=== PATIENT | male | born 1955 | race Caucasian/White ===

== ENCOUNTER 2024-04-13 20:51 | Emergency (ER) | payer MEDICARE, SELFPAY ==
[2024-04-13 21:07] VITALS: BP 150/73; PULSE 83; RESP 15; TEMP 36.7; O2SAT 96; BMI 25.6
--- NOTE | 2024-04-13 21:52 | XRR_ITS ---
PROCEDURE INFORMATION: Exam: XR Left Hand Exam date and time: 04/13/2024 9:56 PM Age: 69 years old Clinical indication: Injury or trauma; Left; Patient HX: Puncture wound from drill bit to area between base of 1st/2nd finger of lt hand TECHNIQUE: Imaging protocol: Radiologic exam of the left hand. Views: 3 or more views. COMPARISON: No relevant prior studies available. FINDINGS: Bones/joints: No acute fracture or dislocation. Polyarticular degenerative joint disease, severe at the 2nd and 3rd distal interphalangeal joints, 1st carpometacarpal joint and radiocarpal joint. Ulnar negative variance. Soft tissues: No radiopaque foreign body. XR/XR hand LT min 3V* [id number] IMPRESSION: No acute bony findings.
[2024-04-13] MEDS: tetanus-dipt-pertussis 0.5 mL SDV IM (22:26)
--- NOTE | 2024-04-13 22:28 | W.ED.EXTPRO ---
HPI - Extremity Problem General: Chief complaint: Extremity Injury, Upper Stated complaint: drill bit went into hand Time Seen by Provider: 04/13/24 21:48 History of Present Illness: 69-year-old right-handed male that presents to the emergency department with a puncture wound to the left forearm. 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 He was drilling when the drill plunged through his object and into his hand. The wound was just proximal to the MCP joint of the index finger. Does not appear that he has washed his hands little including the injury. The event occurred at 1700. No active bleeding here Unknown tetanus Related Data Previous Rx's Medication Instructions Recorded cephalexin 500 mg capsule 500 mg PO Q6H 5 days #20 caps 04/13/24 Allergies Allergy/AdvReac Type Severity Reaction Status Date / Time No Known Allergies Allergy Verified 04/13/24 21:15 Review of Systems General: Reports: 10 or more systems reviewed and unremarkable except in HPI and below Physical Exam Narrative: EXAM NARRATIVE: No acute distress Alert and oriented x 3 Afebrile vital signs stable Nonlabored breathing Well-perfused Nondistended abdomen Moving all extremities Patient is able to give a thumbs up, make an okay sign, cross fingers abduct fingers and make Sensations intact to light touch at radial, median, ulnar nerve distribution Course Vital Signs: Vital signs: Vital Signs Temperature 98.0 F 04/13/24 21:07 Pulse Rate 83 04/13/24 21:07 Respiratory Rate 15 04/13/24 21:07 Blood Pressure 150/73 04/13/24 21:07 Pulse Oximetry 96 04/13/24 21:07 Oxygen Delivery Me thod Room Air 04/13/24 21:07 MDM - Extremity (Nontraumatic) Medical Decision Making Patient is a 69-year-old [id number] male that sustained a puncture wound to the left palm. I obtain an XR of the left hand which revealed no fracture or retained foreign bodies. I updated his tetanus and as per nursing to cleanse his wound. Patient's asked about suturing up the puncture wound. Proximately 2 mm and it is a puncture wound. I explained that we would not want to close that up needed sutures there is a strong possibility that this could get infected so we are going to place him on Keflex needs to wash his hands several times a day with soap and water and monitor closely. Lab Data Radiology Impressions Hand X-Ray 04/13/24 21:52 IMPRESSION: No acute bony findings. All radiology interpretation(s) finalized by discharge Discharge Plan Discharge Patient Disposition: Home Clinical Impression: Puncture wound Condition: Stable Prescriptions: New cephalexin 500 mg capsule 500 mg PO Q6H 5 Days Qty: 20 0RF Discharge Orders: Discharge ED (Routine); Ordered 04/13/24 Ordered By: Sahil Groves Referrals: Mane Carmona DO [Primary Care Provider] - Discharge Diet: Advance as tolerated Discharge Activity: Resume usual activity Patient Instructions: Pain Management, Puncture Wound (ED) Activity Restrictions/Additional Instructions: We are going to treat you with broad-spectrum antibiotic. You need to monitor the area closely. You can anticipate redness and swelling tomorrow. This is a natural reaction to trauma like this. However if swelling continues to grow, warmth or drainage develops, you need to be reevaluated. Coding Level of Care Code ED Machine Heel Seat Laster for Ramone Alicea
[2024-04-13] MEDS: cephALEXin 500 mg Capsule PO (23:00)
== END 2024-04-13 23:06 | disposition home or self-care (01) ==
PROVIDERS: Emergency Provider Nurse Practitioner; PCP Family Medicine
DX: S51.832A Puncture wound without foreign body of left forearm, initial encounter (principal); W29.8XXA Contact with other powered hand tools and household machinery, initial encounter
CPT/HCPCS: 73130; 90471; 90715; 99283; A6446

== ENCOUNTER → 2024-05-30 10:00 | Outpatient (BNVA) | payer MEDICARE, SELFPAY | PROVIDERS: PCP Family Medicine; Visit Provider Podiatrist Foot & Ankle Surgery | DX: L60.3 Nail dystrophy (principal); G62.9 Polyneuropathy, unspecified; L84 Corns and callosities; E11.42 Type 2 diabetes mellitus with diabetic polyneuropathy | CPT/HCPCS: 11056; 11721; 99203 ==

== ENCOUNTER 2024-06-02 19:06 | Emergency (ER) | payer MEDICARE, SELFPAY ==
[2024-06-02 19:10] VITALS: BP 157/80; PULSE 96; RESP 18; TEMP 36.8; O2SAT 98; BMI 24.4
[2024-06-02 19:13] VITALS: BP 157/75; PULSE 84; RESP 19; O2SAT 96
[2024-06-02 21:13] VITALS: BP 158/77; PULSE 84; O2SAT 95
--- NOTE | 2024-06-02 21:57 | XRR_ITS ---
PROCEDURE INFORMATION: Exam: XR Right Knee Exam date and time: 06/02/2024 10:17 PM Age: 69 years old Clinical indication: Pain; Knee; Right TECHNIQUE: Imaging protocol: Radiologic exam of the right knee. Views: 3 views. COMPARISON: No relevant prior studies available. FINDINGS: Bones/joints: Severe tricompartmental osteoarthritis with prominent marginal osteophytes and joint space narrowing. No evidence of acute fracture or subluxation. Moderate joint effusion with intra-articular bodies in the lateral recess of the suprapatellar bursa. Screw fragments are noted in the posterior aspect of the medial femoral condyle. There is an approximately 18 mm ossicle in this region. Soft tissues: No gross soft tissue abnormality. XR/XR knee RT 3V* [id number] IMPRESSION: 1. Severe osteoarthritis without evidence of acute fracture or subluxation. 2. Postsurgical changes of the posterior aspect of the medial femoral condyle with fragmented screws. Orthopedic evaluation is recommended. 3. Intra-articular bodies.
[2024-06-02 22:40] LABS: Basophils # 0.1 10^3/uL (0.0-0.1); Basophils % 0.6 %; Eosinophils # 0.1 10^3/uL (0.0-0.8); Eosinophils % 1.5 %; Hematocrit 40.4 % (37-53); Lymphocytes # 2.3 10^3/uL (0.8-4.8); Mean Corpuscular HGB Conc 32.4 g/dL (30-55); Mean Corpuscular Hemoglobin 31.3 pg (27-33); Mean Corpuscular Volume 96.4 fl (82-101); Mean Platelet Volume 10.3 fL (7.4-10.4); Monocytes # 1.2 10^3/uL (0.2-0.9); Monocytes % 13.1 %; Neutrophils # 5.26 10^3/uL (1.8-7.7); Neutrophils % 58.6 %; Nucleated Red Blood Cells % 0 %; Platelet Count 291 10^3/cmm (157-399); Red Blood Count 4.19 10^6/uL (3.85-5.65); Red Cell Distribution Width 12.1 % (12.1-15.1); White Blood Count 8.96 10^3/uL (3.29-11.43)
--- NOTE | 2024-06-02 22:50 | ED_ITS ---
HPI - Extremity Problem 2 General: Chief complaint: Extremity Problem,Nontraumatic Stated complaint: Rt Knee Pain Time Seen by Provider: 06/02/24 19:31 History of Present Illness: This patient is a 69-year-old white male who presents to the emergency department with right knee pain and swelling. Patient states he was out moving some firewood earlier today and developed sudden onset of right knee pain and swelling. Patient states this is an old arm injury. He had surgery on this knee many years ago. Related Data Previous Rx's Medication Instructions Recorded Diabetic Shoes #1 ea 05/30/24 hydrocodone 5 mg-acetaminophen 325 1 tab PO Q4H PRN pain #30 tabs 06/02/24 mg tablet Allergies Allergy/AdvReac Type Severity Reaction Status Date / Time No Known Allergies Allergy Verified 06/02/24 19:13 Review of Systems 2 Musc: Reports: other (Right knee pain and swelling) PFSH ED 2 PFSH: Social History Smoking and tobacco/nicotine status: current some day tobacco/nicotine user Physical Exam 2 Const: COMMON NORMALS: patient oriented x3 and no limitations GENERAL APPEARANCE: cooperative HENMT: COMMON NORMALS: normocephalic, atraumatic, Normal nasal mucous membranes and turbinates present, moist oral mucous membranes and oropharynx normal HEAD & SCALP: normal to inspection, normocephalic and atraumatic F LLYOD & SINUS: normal facial exam NOSE: Normal nasal mucous membranes and turbinates present Eye: COMMON NORMALS: Equal, round and reactive pupils present, EOMs intact bilaterally and conjunctivae normal GENERAL EYE: appearance normal, both eyes and all related structures CONJUNCTIVA: Yes conjunctivae normal PUPIL: Yes Equal, round and reactive pupils present Neck/C-Spine: COMMON NORMALS: supple and no JVD Chest: COMMONS NORMALS: normal inspection of the chest Resp: COMMON NORMALS: normal respiratory effort and clear to auscultation bilaterally AUSCULTATION: clear to auscultation bilaterally Cardio: COMMON NORMALS: no JVD, regular rate, regular rhythm, No gallops present (Cardio), No murmurs present (Cardio) and No rub (Cardio) RATE: r egular rate RHYTHM: regular rhythm GI: COMMON NORMALS: Normal to inspection, nondistended, normoactive bowel sounds present, Soft to palpation and non-tender AUSCULTATION: Yes normoactive bowel sounds PALPATION: Yes Soft to palpation : COMMON NORMALS: Yes no CVA tenderness BLADDER/KIDNEY EXAM: Yes no CVA tenderness Back/Pelvis: COMMON NORMALS: no CVA tenderness and thoracic and lumbar spine normal to inspection Extremity: NARRATIVE EXTREMITY EXAM: Diffuse swelling about the right knee. It was warm but not erythematous. Very painful with minimal range of motion. Neuro: COMMON NORMALS: patient oriented x3 and CN's II-XII intact bilaterally Psych: COMMON NORMALS: mental status grossly normal, Normal thought process present and cooperative THOUGHT PROCESS: Normal thought process present Skin: COMMON NORMALS: no rashes or lesions noted, turgor normal and no jaundice GENERAL SKIN EXAM: no rashes or lesions noted and turgor normal Course 2 Vital Signs: Vital signs: Vital Signs Temperature 98.3 F 06/02/24 19:10 Pulse Rate 84 06/02/24 19:13 Respiratory Rate 19 H 06/02/24 19:13 Blood Pressure 157/75 06/02/24 19:13 Pulse Oximetry 96 06/02/24 19:13 Oxygen Delivery Me thod Room Air 06/02/24 19:13 MDM - Extremity (Nontraumatic) Medical Decision Making X-rays of the right knee reveal degenerative changes and surgical clips. CBC was normal. Patient was given morphine, Toradol and Zofran in the emergency department. We did Lloyd wrap the knee. Placed him under hydrocodone. He was discharged in stable condition instructed to follow-up with one of the orthopedist soon as possible for further evaluation and management. Lab Data 06/02/24 22:21 06/02/24 22:21 Laboratory Results WBC 8.96 10^3/uL (3.29-11.43) 06/02/24 22:21 RBC 4.19 10^6/uL (3.85-5.65) 06/02/24 22:21 Hgb 13.10 g/dL (11.27-16.99) 06/02/24 22:21 Hct 40.4 % (37-53) 06/02/24 22:21 MCV 96.4 fl (82-101) 06/02/24 22:21 MCH 31.3 pg (27-33) 06/02/24 22: MCHC 32.4 g/dL (30-55) 06/02/24 22:21 RDW 12.1 % (12.1-15.1) 06/02/24 22:21 Plt Count 291 10^3/cmm (157-399) 06/02/24 22:21 MPV 10.3 fL (7.4-10.4) 06/02/24 22:21 Neut % (Auto) 58.6 % 06/02/24 22:21 Lymph % (Auto) 26.0 % 06/02/24 22:21 [place] % (Auto) 13.1 % 06/02/24 22:21 Eos % (Auto) 1.5 % 06/02/24 22:21 Baso % (Auto) 0.6 % 06/02/24 22:21 Neut # (Auto) 5.26 10^3/uL (1.8-7.7) 06/02/24 22:21 Lymph # (Auto) 2.3 10^3/uL (0.8-4.8) 06/02/24 22:21 [place] # (Auto) 1.2 10^3/uL (0.2-0.9) H 06/02/24 22:21 Eos # (Auto) 0.1 10^3/uL (0.0-0.8) 06/02/24 22:21 Baso # (Auto) 0.1 10^3/uL (0.0-0.1) 06/02/24 22:21 Nucleated RBC % (auto) 0 % 06/02/24 22:21 Nucleated RBCs # 0.0 /100WBC 06/02/24 22:21 XR interpretation done by ED provider, pending radiology final review Discharge Plan Discharge Patient Disposition: Home Clinical Impression: Effusion, right knee Condition: Stable Prescriptions: New hydrocodone-acetaminophen 5-325 mg tablet 1 tab PO Q4H PRN (Reason: pain) Qty: 30 0RF No Action (DME) Diabetic Shoes See Rx Instructions .Route .MEDSUPPLY Qty: 1 0RF Rx Instructions: As directed Home 3 x insoles Discharge Orders: Discharge ED (Routine); Ordered 06/02/24 Ordered By: Raghav Carmona Referrals: Mane Carmona DO [Primary Care Provider] - Patient Instructions: Opioid Safety, Pain Management Activity Restrictions/Additional Instructions: Schedule an appointment with one of the orthopedists soon as possible. Coding Level of Care Code ED Lead Ruby On Rails Developer for Ramone Alicea
[2024-06-02 22:51] LABS: Blood Urea Nitrogen 14 mg/dL (8-23); Calcium 9.2 mg/dL (8.5-10.5); Carbon Dioxide 23 mmol/L (22-29); Chloride 98 mmol/L (98-107); Creatinine Clr Calc Pharmacy 97.6482; Glomerular Filtration Rate 133.6 mL/min (90-130); Glucose 159 mg/dL (65-115); Osmolality Calculated 282 mOsm/kg (285-295); Sodium 134 mmol/L (136-145)
[2024-06-02] MEDS: morphine 4 mg/mL SDV 1 mL IVP (22:53)
[2024-06-02] MEDS: ketorolac 30 mg/mL INJ 15 MG IVP (22:53)
[2024-06-02 23:00] VITALS: BP 144/69; PULSE 85; O2SAT 98
[2024-06-02 23:05] LABS: Anion Gap 16.9 (5-19); Potassium 3.9 mmol/L (3.5-5.1)
[2024-06-02 23:14] VITALS: BP 144/69; PULSE 89; O2SAT 97
== END 2024-06-02 23:16 | disposition home or self-care (01) ==
PROVIDERS: Emergency Provider Emergency Medicine; PCP Family Medicine
DX: M25.461 Effusion, right knee (principal); Z72.0 Tobacco use
CPT/HCPCS: 36415; 73562; 80048; 84550; 85025; 96374; 96375; 99284; J1885; J2270

== ENCOUNTER → 2024-06-13 13:58 | Outpatient (BNVA) | payer MEDICARE, SELFPAY | PROVIDERS: PCP Family Medicine; Visit Provider Student in an Organized Health Care Education/Training Program | DX: M23.41 Loose body in knee, right knee (principal) | CPT/HCPCS: 99203 ==

== ENCOUNTER 2024-07-02 10:22 | Inpatient (IN) | payer MEDICARE, SELFPAY ==
[2024-07-02] VITALS (20 sets, daily range): BP systolic 107–137; BP diastolic 56–70; PULSE 60–100; RESP 14–26; TEMP 36.6–36.8; O2SAT 90–98; BMI 22.4
--- NOTE | 2024-07-02 10:29 | ECG_ITS ---
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 Measurements Intervals [place] Rate: 96 P: 30 [place]: 186 QRS: -38 QRSD: 123 T: 83 QT: 370 QTc: 470 Interpretive Statements SINUS RHYTHM LEFT AXIS DEVIATION [QRS AXIS < -30] MODERATE INTRAVENTRICULAR CONDUCTION DELAY [110+ ms QRS DURATION] ST DEVIATION AND MODERATE T-WAVE ABNORMALITY, CONSIDER INFERIOR ISCHEMIA [-0.1+ mV T-WAVE IN II/aVF] No previous ECG available for comparison Electronically Signed On 07-04-2024 17:54:44 COAL AND ASH SUPERVISOR by Bo Arroyo M.D. [email or web address]
--- NOTE | 2024-07-02 10:35 | XR_ITS ---
WS: [id number] Exam: XR knee RT 3V* [id number] Date/Time of Exam: 07/02/2024 10:44 AM Reason For Exam: pain Comparison 06/02/2024. No acute fracture. End-stage osteoarthritis of the medial and lateral joint compartments with anlc-uu-qccs articulation. Fractured staple within the medial femoral condyle. No joint effusion. Chondrocalcinosis and probable loose joint bodies. XR/XR knee RT 3V* [id number] IMPRESSION: 1. End-stage osteoarthritis with iybs-kv-dlqu articulation. See above. 2. No fracture.
--- NOTE | 2024-07-02 10:40 | XR_ITS ---
WS: [id number] Exam: XR chest 1V portable [id number] Date/Time of Exam: 07/02/2024 10:44 AM Reason For Exam: dyspnea/cough No priors. Diffuse interstitial infiltrate in the RIGHT lung. 2 cm ill-defined soft tissue density in the RIGHT upper lung zone. Surgical clips superimpose the RIGHT upper lobe. The LEFT lung is clear. No pneumothorax or pleural effusion. Normal cardiomediastinal silhouette. Fusion hardware in the lower C-spine. Recommendations: Contrast chest CT recommended for follow-up if clinically warranted. XR/XR chest 1V portable [id number] IMPRESSION: 1. Diffuse interstitial infiltrate in the RIGHT lung. This could represent inte rstitial pneumonia or chronic change. 2. Ill-defined 2 cm soft tissue density in the RIGHT upper lung zone. A mass or focal infiltrate cannot be excluded. 3. Postoperative changes in the RIGHT upper lobe.
--- NOTE | 2024-07-02 10:41 | W.ED.SOB ---
HPI - SOB/Dyspnea General: Chief Complaint: Shortness of Breath/Dyspnea Stated Complaint: SOB Time Seen by Provider: 07/02/24 10:33 History of Present Illness: HPI Narrative: 69-year-old male presents emergency room complaining of shortness of breath. He is brought in by EMS they report he was 88% on room air with a first encountered the patient. He was treated with DuoNebs and Solu-Medrol and route this increased oxygen sat to 96% when I seen the patient is at 94%. Is difficult to understand him he mumbles quite a bit and he seems somewhat lethargic. He states he fell and he hurt his right knee. He denies chest or abdominal pain. Denies striking his head no loss consciousness no neck pain Associated symptoms: Deny abdominal pain, chest pain or fever(s) Related Data Home Medications ?Medication ?Instructions ?Recorded ?Confirmed buprenorphine 10 mcg/hour weekly 10 mcg topical Q7D 07/02/24 07/02/24 transdermal patch buprenorphine 5 mcg/hour weekly 5 mcg topical Q7D 07/02/24 07/02/24 transdermal patch glipizide 5 mg tablet 5 mg PO BID 07/02/24 07/02/24 losartan 100 mg tablet 100 mg PO DAILY 07/02/24 07/02/24 meloxicam 15 mg tablet 15 mg PO DAILY 07/02/24 07/02/24 metformin 500 mg tablet,extended 2,000 mg PO QAM 07/02/24 07/02/24 release 24 hr Previous Rx's ?Medication ?Instructions ?Recorded Diabetic Shoes #1 ea 05/30/24 Allergies Allergy/AdvReac Type Severity Reaction Status Date / Time No Known Allergies Allergy Verified 06/13/24 14:15 Review of Systems Const: Denies: fever(s) or chills Card: Denies: chest pain Resp: Reports: dyspnea GI: Denies: abdominal pain : Denies: dysuria, urinary frequency or urinary urgency Musc: Denies: neck pain or back pain Skin/Breast: Denies: rash PFSH ED PFSH: Medical History Peripheral neuropathy Loose body in knee Type 2 diabetes mellitus Hardware failure Social History Smoking and tobacco/nicotine status: current some day tobacco/nicotine user Physical Exam Const: GENERAL APPEARANCE: cooperative ORIENTATION/CONSCIOUSNESS: Yes awake HENMT: COMMON NORMALS: normocephalic, atraumatic and hearing grossly normal bilaterally HEAD & SCALP: normocephalic and atraumatic Resp: AUSCULTATION: wheezes Cardio: COMMON NORMALS: regular rate, regular rhythm and No murmurs present (Cardio) RATE: regular rate RHYTHM: regular rhythm GI: COMMON NORMALS: Soft to palpation and No hepatosplenomegaly present AUSCULTATION: Yes normoactive bowel sounds PALPATION: Yes Soft to palpation, No Tenderness to palpation present (GI), No Guarding due to palpation present (GI) and Yes No hepatosplenomegaly present Extremity: COMMON NORMALS: normal to inspection, capillary refill normal, no clubbing, cyanosis or edema, no calf tenderness and no pedal edema Skin: COMMON NORMALS: no rashes or lesions noted GENERAL SKIN EXAM: no rashes or lesions noted Course Vital Signs: Vital signs: Vital Signs Temperature 97.8 F 07/03/24 03:36 Pulse Rate 64 07/03/24 03:36 Respiratory Rate 17 07/03/24 03:36 Blood Pressure 149/72 07/03/24 03:36 Pulse Oximetry 97 07/03/24 03:36 Oxygen Delivery Me thod Room Air 07/03/24 03:36 Oxygen Flow Rate 2 07/02/24 23:55 MDM - SOB/Dyspnea Medical Decision Making Chest x-ray right lower lobe pneumonia CT confirms there is no PE. Patient is hypoxic. Will admit IV antibiotics initiated discussed with hospitalist orders written Medical Records I reviewed the patient's medical records. Lab Data I reviewed the patient's lab results. 07/03/24 04:20 07/03/24 04:20 Labs/Radiology: Radiology Impressions Knee X-Ray 07/02/24 10:35 IMPRESSION: 1. End-stage osteoarthritis with tdvy-rt-dpfn articulation. See above. 2. No fracture. Chest X-Ray 07/02/24 10:40 IMPRESSION: 1. Diffuse interstitial infiltrate in the RIGHT lung. This could represent interstitial pneumonia or chronic change. 2. Ill-defined 2 cm soft tissue density in the RIGHT upper lung zone. A mass or focal infiltrate cannot be excluded. 3. Postoperative changes in the RIGHT upper lobe. Chest CTA 07/02/24 16:51 IMPRESSION: 1. Right lower lobe pneumonia with mild patchy infiltrates in the anterior right upper lobe and right middle lobe. Follow-up is recommended to ensure resolution. 2. Small right pleural effusion. 3. Mild coronary arterial calcification. 4. No pulmonary embolism detected. Head CT 07/02/24 16:51 IMPRESSION: 1. Age-related atrophy with patchy hypoattenuation in the deep white matter as well as within the bilateral basal ganglia, central linda, and thalami. These findings could all be related to chronic small-vessel ischemic change and old lacunar type infarcts. However, an acute infarct is difficult to exclude on this exam. If clinically indicated, MRI may be helpful for further evaluation. 2. No acute intracranial hemorrhage seen. Laboratory Results WBC 12.46 10^3/uL (3.29-11.43) H 07/02/24 11:02 RBC 3.74 10^6/uL (3.85-5.65) L 07/02/24 11:02 Hgb 11.30 g/dL (11.27-16.99) 07/02/24 11:02 Hct 34.2 % (37-53) L 07/02/24 11:02 MCV 91.4 fl (82-101) 07/02/24 11:02 MCH 30.2 pg (27-33) 07/02/24 11:02 MCHC 33.0 g/dL (30-55) 07/02/24 11:02 RDW 11.9 % (12.1-15.1) L 07/02/24 11:02 Plt Count 365 10^3/cmm (157-399) 07/02/24 11:02 MPV 10.1 fL (7.4-10.4) 07/02/24 11:02 Neut % (Auto) 78.3 % 07/02/24 11:02 Lymph % (Auto) 12.4 % 07/02/24 11:02 [place] % (Auto) 8.2 % 07/02/24 11:02 Eos % (Auto) 0.3 % 07/02/24 11:02 Baso % (Auto) 0.2 % 07/02/24 11:02 Neut # (Auto) 9.75 10^3/uL (1.8-7.7) H 07/02/24 11:02 Lymph # (Auto) 1.6 10^3/uL (0.8-4.8) 07/02/24 11:02 [place] # (Auto) 1.0 10^3/uL (0.2-0.9) H 07/02/24 11:02 Eos # (Auto) 0.0 10^3/uL (0.0-0.8) 07/02/24 11:02 Baso # (Auto) 0.0 10^3/uL (0.0-0.1) 07/02/24 11:02 Nucleated RBC % (auto) 0 % 07/02/24 11:02 Nucleated RBCs # 0.0 /100WBC 07/02/24 11:02 Specimen Type Arterial 07/02/24 10:37 Sample Site Radial, left 07/02/24 10:37 ABG pH 7.43 (7.35-7.45) 07/02/24 10:37 ABG pCO2 39.4 mmHg (35-45) 07/02/24 10:37 ABG pO2 59.4 mmHg (80.0-100.0) L 07/02/24 10:37 ABG PO2/FiO2 Ratio 282 07/02/24 10:37 ABG HCO3 26.1 mmol/L (22-26) H 07/02/24 10:37 ABG O2 Saturation 91.2 07/02/24 10:37 ABG Base Excess 1.7 mmol/L (-2.0-2.0) 07/02/24 10:37 Geoffrey Test Pos 07/02/24 10:37 A-a O2 Gradient 5.6 mmHg (5-10) 07/02/24 10:37 Hematocrit 35.6 % (42-52) L 07/02/24 10:37 Hgb O2 Saturation 89.1 % (95-100) L 07/02/24 10:37 Carboxyhemoglobin 1.2 %THgb (0.4-20.1) 07/02/24 10:37 Methemoglobin 1.1 % (0.4-1.5) 07/02/24 10:37 Total Hemoglobin 11.6 g/dL (14-18) L 07/02/24 10:37 Sodium 136.0 mmol/L (131-143) 07/02/24 10:37 Potassium 3.1 mmol/L (3.5-5.0) L 07/02/24 10:37 Glucose 271.0 mg/dL (70-115) H 07/02/24 10:37 Ionized Calcium 1.2 mmol/L (1.1-1.4) 07/02/24 10:37 O2 Delivery Device Room air 07/02/24 10:37 FiO2 21.0 % 07/02/24 10:37 Grab Operator ID [place] 07/02/24 10:37 Sodium 134 mmol/L (136-145) L 07/02/24 11:02 Potassium 3.5 mmol/L (3.5-5.1) 07/02/24 11:02 Chloride 98 mmol/L (98-107) 07/02/24 11:02 Carbon Dioxide 22 mmol/L (22-29) 07/02/24 11:02 Anion Gap 17.5 (5-19) 07/02/24 11:02 BUN 11 mg/dL (8-23) 07/02/24 11:02 Creatinine 0.8 mg/dL (0.7-1.2) 07/02/24 11:02 GFR Calculation 95.8 mL/min (90-130) 07/02/24 11:02 Glucose 281 mg/dL (65-115) H 07/02/24 11:02 Calculated Osmolality 288 mOsm/kg (285-295) 07/02/24 11:02 Lactic Acid 1.7 mmol/L (0.5-2.2) 07/02/24 11:02 Calcium 8.5 mg/dL (8.5-10.5) 07/02/24 11:02 Total Bilirubin 1.0 mg/dL (0.15-1.2) 07/02/24 11:02 AST 28 U/L (0-40) 07/02/24 11:02 ALT 33 U/L (0-41) 07/02/24 11:02 Alkaline Phosphatase 98 U/L (40-130) 07/02/24 11:02 Troponin T Baseline 43 ng/L (0-15) H 07/02/24 11:02 Troponin T 120 Minute 37.12 ng/L (0-15) H 07/02/24 13:15 Delta Troponin T -5.88 ABS# (0-10) L 07/02/24 13:15 Total Protein 5.6 g/dL (6.6-8.7) L 07/02/24 11:02 Albumin 3.1 g/dL (3.5-5.2) L 07/02/24 11:02 Globulin 2.5 g/dL (1.3-4.6) 07/02/24 11:02 Salicylates < 0.3 mg/dL (3-10) L 07/02/24 11:02 Acetaminophen < 5.0 ug/mL (10-30) L 07/02/24 11:02 Ethyl Alcohol < 10 mg/dL (0-10) 07/02/24 11:02 Influenza A (PCR) Negative (Negative) 07/02/24 13:01 Influenza Type B (PCR) Negative (Negative) 07/02/24 13:01 RSV (PCR) Negative (Negative) 07/02/24 13:01 SARS-CoV-2 (PCR) Negative (Negative) 07/02/24 13:01 All radiology interpretation(s) finalized by discharge Discharge Plan Discharge Patient Disposition: Admitted As Inpatient Admit Provider: Pat Morales Clinical Impression: Pneumonia, COPD (chronic obstructive pulmonary disease), Type 2 diabetes mellitus Condition: Stable Coding Level of Care Code ED Slitting Machine Operator Helper for Ramone Alicea
[2024-07-02 10:48] LABS: ABG PCO2 39.4 mmHg (35-45); ABG PH Result 7.43 (7.35-7.45); Alveolar-Arterial Oxygen Gradi 5.6 mmHg (5-10); Arterial Blood Gas Hematocrit 35.6 % (42-52); Base Excess ABG 1.7 mmol/L (-2.0-2.0); Blood Gas Allen Test Pos; Blood Gas Operator Identificat WALCI; Blood Gas Sample Site Radial, left; Blood Gas Sample Type Arterial; Carboxyhemoglobin 1.2 %THgb (0.4-20.1); HCO3 ABG 26.1 mmol/L (22-26); HGB O2 Sat 89.1 % (95-100); Ionized Calcium Level - ABG 1.2 mmol/L (1.1-1.4); Methemoglobin 1.1 % (0.4-1.5); Oxygen Device ROOM AIR; Oxygen Saturation ABG 91.2; PO2 ABG 59.4 mmHg (80.0-100.0); PO2 FiO2 Ratio Arterial Blood 282; Potassium Level - ABG 3.1 mmol/L (3.5-5.0); Total Hemoglobin 11.6 g/dL (14-18)
[2024-07-02 11:09] LABS: Basophils % 0.2 %; Eosinophils % 0.3 %; Hematocrit 34.2 % (37-53); Lymphocytes # 1.6 10^3/uL (0.8-4.8); Lymphocytes % 12.4 %; Mean Corpuscular Hemoglobin 30.2 pg (27-33); Mean Corpuscular Volume 91.4 fl (82-101); Mean Platelet Volume 10.1 fL (7.4-10.4); Monocytes % 8.2 %; Neutrophils # 9.75 10^3/uL (1.8-7.7); Neutrophils % 78.3 %; Nucleated Red Blood Cells % 0 %; Platelet Count 365 10^3/cmm (157-399); Red Blood Count 3.74 10^6/uL (3.85-5.65); Red Cell Distribution Width 11.9 % (12.1-15.1); White Blood Count 12.46 10^3/uL (3.29-11.43)
[2024-07-02 11:27] LABS: Troponin(5th) Baseline 43 ng/L (0-15)
[2024-07-02 11:35] LABS: Alanine Aminotransferase 33 U/L (0-41); Albumin Level 3.1 g/dL (3.5-5.2); Alkaline Phosphatase 98 U/L (40-130); Anion Gap 17.5 (5-19); Aspartate Amino Transferase 28 U/L (0-40); Blood Urea Nitrogen 11 mg/dL (8-23); Calcium 8.5 mg/dL (8.5-10.5); Carbon Dioxide 22 mmol/L (22-29); Chloride 98 mmol/L (98-107); Creatinine Clr Calc Pharmacy 97.1127; Globulin 2.5 g/dL (1.3-4.6); Glomerular Filtration Rate 95.8 mL/min (90-130); Glucose 281 mg/dL (65-115); Osmolality Calculated 288 mOsm/kg (285-295); Potassium 3.5 mmol/L (3.5-5.1); Sodium 134 mmol/L (136-145); Total Protein 5.6 g/dL (6.6-8.7)
[2024-07-02 11:39] LABS: Acetaminophen < 5.0 ug/mL (10-30); Alcohol Level < 10 mg/dL (0-10); Salicylate < 0.3 mg/dL (3-10)
--- NOTE | 2024-07-02 12:40 | ECG_ITS ---
[facility] Date: 2024[facility]02 Pat Name: Rad Romero Department: Room: Gender: Male Regional Safety Manager: : 1955 Requested By: Dharmesh Figueroa Order Number: [id number] Reading MD: MARY MARRERO Measurements Intervals [place] Rate: 77 P: 64 MD: 165 QRS: -20 QRSD: 123 T: 69 QT: 389 QTc: 441 Interpretive Statements SINUS RHYTHM MODERATE INTRAVENTRICULAR CONDUCTION DELAY [110+ ms QRS DURATION] Compared to ECG 07/02/2024 10:29:08 Left-axis deviation no longer present T-wave abnormality no longer present Possible ischemia no longer present Electronically Signed On 07-09-2024 23:56:19 HOT PLATE PRESS OPERATOR by MARY MARRERO [email or web address]
[2024-07-02] MEDS: ipratropium-albuterol 3 mL Neb INHALATION (12:42)
[2024-07-02] MEDS: methylPREDNISolone sod succ 125 mg/2 mL INJ IVP (12:53)
[2024-07-02 13:24] LABS: Lactic Sepsis W/Reflex 1.7 mmol/L (0.5-2.2)
[2024-07-02] MEDS: cefTRIAXone 1,000 mg SDV 1000 MG IVP (13:57)
[2024-07-02 13:58] LABS: Troponin 5 2HR 37.12 ng/L (0-15)
[2024-07-02] MEDS: AZITHROMYCIN ADD-Vantage 500 MG in 0.9% NaCl ADD-Vantage 250 ML 250 MG IV (13:58)
[2024-07-02 14:02] LABS: Troponin 5 2HR Delta -5.88 ABS# (0-10)
[2024-07-02 14:24] LABS: Influenza A NEGATIVE (Negative); Influenza B NEGATIVE (Negative); Respiratory Syncytial Virus Ce NEGATIVE (Negative); SARS-CoV-2 PCR NEGATIVE (Negative)
--- NOTE | 2024-07-02 16:40 | ECG_ITS ---
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
--- NOTE | 2024-07-02 16:51 | CTR_ITS ---
PROCEDURE INFORMATION: Exam: CT Head Without Contrast Exam date and time: 07/02/2024 5:46 PM Age: 69 years old Clinical indication: Injury or trauma; Fall; Blunt trauma (contusions or hematomas); Consciousness not specified; Additional info: Fall, ground level fall TECHNIQUE: Imaging protocol: Computed tomography of the head without contrast. Radiation optimization: All CT scans at this facility use at least one of these dose optimization techniques: automated exposure control; mA and/or kV adjustment per patient size (includes targeted exams where dose is matched to clinical indication); or iterative reconstruction. COMPARISON: No relevant prior studies available. RADIATION DOSE METRICS: Total DLP (mGy-cm): 1061.6 FINDINGS: Brain: There is enlargement of the ventricular system and cortical sulci compatible with diffuse cerebral atrophy, age-related.There is patchy hypoattenuation in the deep white matter, most pronounced in the parietal lobes bilaterally and posterior right frontal lobe. There is a 9 mm focus of hypoattenuation within the left anterior thalamus with patchy hypoattenuation in the right thalamus, bilateral basal ganglia, and central linda. These findings could all be chronic, however a focus of acute ischemia is difficult to exclude on this exam. No acute intracranial hemorrhage is seen. Cerebral ventricles: Mildly enlarged related to atrophy. No hydrocephalus. Paranasal sinuses: Visualized sinuses are clear. No air fluid levels. Mastoid air cells: Visualized mastoid air cells are well aerated. Bones: Intact. No acute fracture detected. Soft tissues: Unremarkable. CT/CT head wo con* [id number] IMPRESSION: 1. Age-related atrophy with patchy hypoattenuation in the deep white matter as well as within the bilateral basal ganglia, central linda, and thalami. These findings could all be related to chronic small-vessel ischemic change and old lacunar type infarcts. However, an acute infarct is difficult to exclude on this exam. If clinically indicated, MRI may be helpful for further evaluation. 2. No acute intracranial hemorrhage seen.
--- NOTE | 2024-07-02 16:51 | CTR_ITS ---
PROCEDURE INFORMATION: Exam: CTA Chest With Contrast Exam date and time: 07/02/2024 5:46 PM Age: 69 years old Clinical indication: Injury or trauma; Fall; Blunt trauma (contusions or hematomas); Additional info: Fall, lung mass on cxr, noted rul mass on cxr, ? mass vs pneumonia. Ground level TECHNIQUE: Imaging protocol: Computed tomographic angiography of the chest with contrast. Exam focused on the arteries. 3D rendering (Not supervised by radiologist): MIP and/or 3D reconstructed images were created by the technologist. Radiation optimization: All CT scans at this facility use at least one of these dose optimization techniques: automated exposure control; mA and/or kV adjustment per patient size (includes targeted exams where dose is matched to clinical indication); or iterative reconstruction. Contrast material: OMNIPAQUE 350; Contrast volume: 100 ml; Contrast route: INTRAVENOUS (IV); COMPARISON: CR XR chest 1V portable [id number] 07/02/2024 10:45 AM RADIATION DOSE METRICS: Total DLP (mGy-cm): 1061.6 FINDINGS: Pulmonary arteries: No intraluminal soft tissue filling defects are seen within the pulmonary arteries to suggest pulmonary embolism. Aorta: Unremarkable. No aortic aneurysm. No aortic dissection. Lungs: There is focal airspace disease within the posterior right lower lobe compatible with pneumonia. There is also patchy infiltrate in the anterior right upper lobe and right middle lobe. The left lung appears clear. Pleural spaces: There is a small right pleural effusion. Heart: Unremarkable. No cardiomegaly. No pericardial effusion. Coronary arteries: Mild coronary arterial calcification is noted. Lymph nodes: Unremarkable. No enlarged lymph nodes. Bones/joints: There are degenerative changes involving the thoracic spine. A surgical plate is seen in the visualized lower cervical spine. Soft tissues: Unremarkable. CT/CT angio chest PE protcl [id number] IMPRESSION: 1. Right lower lobe pneumonia with mild patchy infiltrates in the anterior right upper lobe and right middle lobe. Follow-up is recommended to ensure resolution. 2. Small right pleural effusion. 3. Mild coronary arterial calcification. 4. No pulmonary embolism detected.
[2024-07-02 17:13] LABS: Bilirubin Urine Negative (Negative); Blood Urine Negative (Negative); Glucose Urine UA 2+ (Normal); Ketones Urine Negative (Negative); Leukocyte Esterase Urine Negative (Negative); Nitrate Urine Negative (Negative); Protein Urine Trace (Negative); Specific Gravity, Urine 1.017 (1.005-1.030); Urine Appearance Clear (CLEAR); Urine Color Yellow (Yellow); pH Urine 5.5 (5-7)
[2024-07-02 17:20] LABS: Amphetamines Screen Urine Positive (Negative); Barbiturates Screen Urine Negative (Negative); Benzodiazepines Screen Urine Negative (Negative); Cocaine Screen Urine Negative (Negative); Opiate Screen Urine Negative (Negative); PCP Screen Urine Negative (Negative); THC Screen Urine Positive (Negative)
[2024-07-02 17:32] LABS: Add Urine Microscopic? YES; UA Manual Slide Review YES; UA Slide Review UA Slide Review Perf
[2024-07-02 17:35] LABS: Add Urine Culture? No
[2024-07-02 17:37] LABS: Troponin 5 6HR 27.06 ng/L (0-15)
[2024-07-02 17:38] LABS: Troponin 5 6HR Delta -15.94 ng/L (0-12)
[2024-07-02] MEDS: iohexol 350 mg/mL 500 mL Btl (per mL) IV (17:53)
--- NOTE | 2024-07-02 17:53 | PM.HP ---
Providers/Chief Complaint Admitting Physician: Pat Morales MD Primary Care Provider: Mane Carmona DO Chief Complaint: SOB History of Present Illness Rad Romero is a 69 year old male with past medical history of chronic smoking, type 2 diabetes mellitus, chronic pain management, chronic right knee pain for which he is following up with orthopedics as an outpatient presents to the ER today after sustaining a fall. Patient states he been having difficulty breathing for a long time but got worse after fall today. He was trying scraped his yard when he fell and started having pain in the right side of the chest along with difficulty in breathing. States last alcohol consumption was last night. Denies any nausea vomiting, headache, dizziness, hitting his head, pain in any of his limbs. In the ER he was diagnosed of COPD exacerbation with concerns for pneumonia and was started on nebulization treatment, steroids and given 1 dose of IV ceftriaxone. Review of Systems General: Reports: 10 or more systems reviewed and unremarkable except in HPI and below Const: Denies: fever(s), chills, body aches, change in appetite, change in weight, malaise, night sweats, diaphoresis, change in sleep pattern, daytime sleepiness or snoring Eyes: Denies: change in vision, blurry vision, photophobia, eye discomfort or eye discharge ENMT: Denies: throat pain, enlarged tonsils, hoarseness, mouth pain, oral sores, dry mouth, tinnitus, nasal congestion or post nasal drip Card: Denies: chest pain, palpitations, irregular heart rhythm, edema, swelling of feet/ankles, lightheadedness, syncope, pre-syncope, dyspnea on exertion, orthopnea, leg pain with exertion or acrocyanosis Resp: Denies: dyspnea, productive cough, non-productive cough, wheezing, stridor, pain on inspiration, change in phlegm color, hemoptysis or chest congestion GI: Denies: abdominal pain, nausea, vomiting, hematemesis, coffee ground emesis, dysphagia, heartburn, diarrhea, constipation, bloating, GI cramping, change in bowel habits, pain on defecation, hematochezia or melena : Denies: flank pain, difficulty urinating, dysuria, urinary frequency, urinary urgency, urinary hesitancy, urinary dribbling, difficulty starting urination, change in urine stream, nocturia or hematuria Musc: Denies: neck pain, back pain, extremity pain, joint pain, joint swelling, joint redness, joint stiffness or limited range of motion Neuro: Denies: headache(s), numbness in extremities, weakness in extremities, sensory changes, lack of coordination, difficulty walking, frequent falls, dizziness, vertigo, confusion, Slurred speech present, difficulty communicating thoughts or seizure-like activity Psych: Denies: anxiety, depression, mood swings, panic attacks, hopelessness or irritability Endo: Denies: polyuria, polydipsia, tired all the time, cold intolerance, excessive sweating, flushing or heat intolerance Lance/Lymph: Denies: easy bruising or easy bleeding All/Imm: Denies: tongue swelling, facial swelling or acute wheezing Medications/Allergies Home Medications ?Medication ?Instructions ?Recorded ?Confirmed ?Last Taken ?Type Diabetic Shoes #1 ea 05/30/24 07/02/24 Unknown Rx buprenorphine 10 mcg/hour weekly 10 mcg topical Q7D 07/02/24 07/02/24 06/30/24 History transdermal patch buprenorphine 5 mcg/hour weekly 5 mcg topical Q7D 07/02/24 07/02/24 Unknown History transdermal patch glipizide 5 mg tablet 5 mg PO BID 07/02/24 07/02/24 07/02/24 History losartan 100 mg tablet 100 mg PO DAILY 07/02/24 07/02/24 07/02/24 History meloxicam 15 mg tablet 15 mg PO DAILY 07/02/24 07/02/24 07/02/24 History metformin 500 mg tablet,extended 2,000 mg PO QAM 07/02/24 07/02/24 07/02/24 History release 24 hr Allergies Allergy/AdvReac Type Severity Reaction Status Date / Time No Known Allergies Allergy Verified 06/13/24 14:15 PFSH Acute PFSH: Medical History (Updated 07/02/24 @ 17:57 by Ovi Corcoarn MD) Peripheral neuropathy Loose body in knee Type 2 diabetes mellitus Hardware failure Social History Smoking and tobacco/nicotine status: current some day tobacco/nicotine user Vitals/I&O/Wt Last Vital Signs Temp 98.3 F 07/02/24 10:26 Pulse 68 07/02/24 17:00 Resp 17 07/02/24 17:00 BP 128/66 07/02/24 17:00 Pulse Ox 98 07/02/24 17:00 O2 Del Method Nasal Cannula 07/02/24 17:00 O2 Flow Rate 2 07/02/24 17:00 07/02/24 07/02/24 07/02/24 06:59 14:59 22:59 Intake Total 250 / 250 Balance 250 / 250 Weight last 48 hrs Weight 77.111 kg Physical Exam Narrative: General: No acute distress, AO x3, drowsy HEENT: PERRLA, pupils bilaterally equal and reactive Chest: Bronchial breath sounds all over lung mitchell, occasional rhonchi, coarse Acra present in right lower zone, tenderness in right fourth and fifth ribs and anterior axillary line CVS: S1-S2 regular, no murmurs, no tachycardia, no gallops, no rubs Abdomen: Soft, nontender, no organomegaly, bowel sounds present Neuro: No focal deficits, no facial deformity, AO x3, power 5/5 in all limbs Data 07/02/24 11:02 07/02/24 11:02 Micro: Microbiology 07/02/24 13:18 Blood Culture - Preliminary Blood SPECIMEN COLLECTED 07/02/24 13:15 Blood Culture - Preliminary Blood SPECIMEN COLLECTED A&P Assessment and plan (1) Dyspnea: Most likely in setting of COPD exacerbation along with right lower lobe pneumonia. Seen on chest x-ray. Influenza A, COVID-19, RSV negative. Oxygen supplementation keeping saturation over 90%. (2) COPD (chronic obstructive pulmonary disease): Solu-Medrol 40 mg every 8 hourly Pulmicort twice daily, ipratropium, Xopenex every 6 hours. Patient is a chronic smoker. Nicotine patch offered. Counseled again about abstaining from smoking. (3) Pneumonia: Check MRSA swab, sputum culture. Treat with IV ceftriaxone azithromycin for community-acquired pneumonia for now. If MRSA swab positive will add coverage. (4) Fall: Mechanical. Check CT head, CTA chest to rule out rib fracture. Will also rule out pulm embolism given new hypoxia. (5) Type 2 diabetes mellitus: Check A1c. Takes glipizide at home. Insulin sliding scale at low-dose protocol. Plan Urine drug screen positive for amphetamines. Occasional alcohol drinker. Last consumption on 07/01. Alcohol level negative currently. [facility] protocol. CODE STATUS: Full code Cardiac diet Protonix OPD prophylaxis Lovenox for DVT prophylaxis PDMP PDMP Reviewed: Not Reviewed Attestations Medical Necessity Statement*: Admit for more than 2 midnights for management of hypoxia in setting of right lower lobe pneumonia, COPD exacerbation while rib fracture is ruled out given mechanical fall Diagnoses Dyspnea R06.00 COPD (chronic obstructive pulmonary disease) J44.9 Pneumonia J18.9 Fall W19.XXXA Type 2 diabetes mellitus E11.9
[2024-07-02 18:09] LABS: Glucose Point of Care 289 mg/dL (70-110)
[2024-07-02] MEDS: enoxaparin 40 mg/0.4 mL Syringe SUBCUT (18:13)
[2024-07-02] MEDS: insulin lispro 100 unit/1 mL SUBCUT ×2 (18:14→23:18)
[2024-07-02 22:02] LABS: Glucose Point of Care 325 mg/dL (70-110)
[2024-07-03] VITALS (8 sets, daily range): BP systolic 113–149; BP diastolic 57–72; PULSE 61–75; RESP 17–19; TEMP 36.4–36.7; O2SAT 94–98
[2024-07-03 00:52] LABS: MRSA PCR OZH (swab) NOT DETECTED (Negative)
[2024-07-03 05:23] LABS: Basophils % 0.1 %; Hematocrit 35.1 % (37-53); Lymphocytes # 0.9 10^3/uL (0.8-4.8); Lymphocytes % 6.9 %; Mean Corpuscular Hemoglobin 30.9 pg (27-33); Mean Corpuscular Volume 93.4 fl (82-101); Mean Platelet Volume 10.7 fL (7.4-10.4); Monocytes # 0.9 10^3/uL (0.2-0.9); Neutrophils # 11.39 10^3/uL (1.8-7.7); Neutrophils % 85.3 %; Nucleated Red Blood Cells % 0 %; Platelet Count 413 10^3/cmm (157-399); Red Blood Count 3.76 10^6/uL (3.85-5.65); Red Cell Distribution Width 11.9 % (12.1-15.1); White Blood Count 13.35 10^3/uL (3.29-11.43)
[2024-07-03 05:45] LABS: Alanine Aminotransferase 29 U/L (0-41); Albumin Level 2.8 g/dL (3.5-5.2); Alkaline Phosphatase 95 U/L (40-130); Anion Gap 17.8 (5-19); Aspartate Amino Transferase 17 U/L (0-40); Blood Urea Nitrogen 21 mg/dL (8-23); Calcium 9.3 mg/dL (8.5-10.5); Carbon Dioxide 24 mmol/L (22-29); Chloride 99 mmol/L (98-107); Creatinine Clr Calc Pharmacy 99.5282; Globulin 3.7 g/dL (1.3-4.6); Glomerular Filtration Rate 95.8 mL/min (90-130); Glucose 331 mg/dL (65-115); Osmolality Calculated 300 mOsm/kg (285-295); Potassium 3.8 mmol/L (3.5-5.1); Sodium 137 mmol/L (136-145); Total Bilirubin 0.4 mg/dL (0.15-1.2); Total Protein 6.5 g/dL (6.6-8.7)
[2024-07-03 06:27] LABS: Glucose Point of Care 389 mg/dL (70-110)
[2024-07-03] MEDS: ipratropium-albuterol 3 mL Neb INHALATION (07:40)
[2024-07-03] MEDS: cefTRIAXone 1,000 mg SDV 1000 MG IVP (08:54)
[2024-07-03] MEDS: azithromycin 250 mg Tablet 500 MG PO (08:54)
[2024-07-03] MEDS: pantoprazole DR 40 mg Tablet PO (08:55)
[2024-07-03] MEDS: insulin lispro 100 unit/1 mL SUBCUT ×4 (08:55→20:57)
[2024-07-03 10:58] LABS: Glucose Point of Care 328 mg/dL (70-110)
--- NOTE | 2024-07-03 15:38 | PM.PN ---
Subjective Subjective: Complaining of bouts of coughing. Pain over the right second intercostal space. Medications: Reviewed: Yes Vitals/I&O/Wt Last Vital Signs Temp 97.5 F L 07/03/24 12:06 Pulse 70 07/03/24 12:06 Resp 18 07/03/24 12:06 BP 113/61 07/03/24 12:06 Pulse Ox 94 07/03/24 12:06 O2 Del Method Nasal Cannula 07/03/24 12:06 O2 Flow Rate 2 07/03/24 08:00 07/03/24 07/03/24 07/03/24 06:59 14:59 22:59 Intake Total 360 / 1090 720 / 720 Balance 360 / 1090 720 / 720 Weight last 48 hrs Weight 82.01 kg Weight 81.465 kg Weight 77.111 kg Physical Exam Narrative: General: No acute distress, AO x3 HEENT: PERRLA, pupils bilaterally equal and reactive, pallors not present Chest: Normal vesicular breath sounds, no added sounds, equal good air entry bilaterally CVS: S1-S2 regular, no murmurs, no tachycardia, no gallops, no rubs Abdomen: Soft, nontender, no organomegaly, bowel sounds present Neuro: No focal deficits, no facial deformity, AO x3, power 5/5 in all limbs Data 07/03/24 04:20 07/03/24 04:20 Micro: Microbiology 07/02/24 13:18 Blood Culture - Preliminary Blood NEGATIVE TO DATE 07/02/24 13:15 Blood Culture - Preliminary Blood NEGATIVE TO DATE 07/03/24 07:56 Gram Stain - Final Sputum - Expectorated Sputum A&P Assessment and plan (1) Dyspnea: Most likely in setting of COPD exacerbation along with right lower lobe pneumonia. Seen on chest x-ray. Influenza A, COVID-19, RSV negative. Oxygen supplementation keeping saturation over 90%. (2) COPD (chronic obstructive pulmonary disease): Solu-Medrol 40 mg every 8 hourly Pulmicort twice daily, ipratropium, Xopenex every 6 hours. Patient is a chronic smoker. Nicotine patch offered. Counseled again about abstaining from smoking. (3) Pneumonia: Check MRSA swab, sputum culture. Treat with IV ceftriaxone azithromycin for community-acquired pneumonia for now. If MRSA swab positive will add coverage. (4) Fall: Mechanical. Check CT head, CTA chest to rule out rib fracture. Will also rule out pulm embolism given new hypoxia. (5) Type 2 diabetes mellitus: Check A1c. Takes glipizide at home. Insulin sliding scale at low-dose protocol. Plan Urine drug screen positive for amphetamines. Occasional alcohol drinker. Last consumption on 07/01. Alcohol level negative currently. [facility] protocol. CODE STATUS: Full code Cardiac diet Protonix OPD prophylaxis Lovenox for DVT prophylaxis July 03 2024 Patient is having paroxysms of cough. States that it hurts every time he coughs in the second intercostal space.CTA was negative for PE yesterday. Right-sided pneumonia demonstrated. No noted rib fractures. Continue ceftriaxone and azithromycin. Pending sputum culture. MRSA screen is negative. Head CT without acute intracranial abnormalities. Age-related atrophy is noted and patchy hypoattenuation in deep white matter these findings could be related to chronic small vessel ischemic changes and old lacunar type infarcts. Currently he does not have any focal neurological deficits. Likely will order changes. Will start aspirin 81 mg daily and Lipitor 40 mg daily. Patient is a diabetic, however his significant other reports he does not manage his diet. Will check HbA1c and lipid panel. Current blood sugars are ranging between 3 25-3 80. Likely has been uncontrolled on metformin. Patient has been started on buprenorphine patches with PCP recently. We do not have these patches on formulary at this present time. Patient's family to bring in the patches for inpatient use. PDMP PDMP Reviewed: Not Reviewed Attestations Medical Necessity Statement*: Continued admission for IV antibiotics, need for IV steroids Coding Level of Care Code Acute Code for [facility] Diagnoses Dyspnea R06.00 COPD (chronic obstructive pulmonary disease) J44.9 Pneumonia J18.9 Fall W19.XXXA Type 2 diabetes mellitus E11.9
[2024-07-03 16:33] LABS: Glucose Point of Care 252 mg/dL (70-110)
[2024-07-03] MEDS: methylPREDNISolone sod succ 40 mg/mL INJ IVP ×2 (16:58→23:13)
[2024-07-03] MEDS: lidocaine 5% Patch 1 PATCH TOPICAL (16:58)
[2024-07-03] MEDS: enoxaparin 40 mg/0.4 mL Syringe SUBCUT (17:09)
[2024-07-03] MEDS: guaiFENesin-dextromethorphan UDC 10 mL 5 ML PO (20:20)
[2024-07-03] MEDS: benzonatate 100 mg Capsule PO (20:20)
[2024-07-03 20:36] LABS: Glucose Point of Care 263 mg/dL (70-110)
[2024-07-04] VITALS (7 sets, daily range): BP systolic 128–162; BP diastolic 67–80; PULSE 56–79; RESP 16–20; TEMP 36.4–36.7; O2SAT 92–97
[2024-07-04 05:35] LABS: Basophils % 0.1 %; Hematocrit 36.5 % (37-53); Lymphocytes # 1.2 10^3/uL (0.8-4.8); Mean Corpuscular HGB Conc 32.6 g/dL (30-55); Mean Corpuscular Hemoglobin 29.9 pg (27-33); Mean Corpuscular Volume 91.7 fl (82-101); Mean Platelet Volume 10.6 fL (7.4-10.4); Monocytes # 0.4 10^3/uL (0.2-0.9); Monocytes % 1.9 %; Neutrophils # 18.04 10^3/uL (1.8-7.7); Neutrophils % 91.1 %; Nucleated Red Blood Cells % 0 %; Platelet Count 529 10^3/cmm (157-399); Red Blood Count 3.98 10^6/uL (3.85-5.65); Red Cell Distribution Width 11.9 % (12.1-15.1)
[2024-07-04 05:55] LABS: Chol HDL Ratio 3.38 mg/dL (1.0-5.00); Cholesterol 115 mg/dL (0-200); HDL Cholesterol 34 mg/dL (60-100); LDL Cholesterol Calculated 65 mg/dL (50-129); LDL HDL Ratio 1.91 RATIO (0.00-3.22); Triglycerides 78 mg/dL (0-150)
[2024-07-04 06:00] LABS: Alanine Aminotransferase 33 U/L (0-41); Albumin Level 3.1 g/dL (3.5-5.2); Alkaline Phosphatase 98 U/L (40-130); Anion Gap 19.8 (5-19); Aspartate Amino Transferase 20 U/L (0-40); Blood Urea Nitrogen 22 mg/dL (8-23); Calcium 9.2 mg/dL (8.5-10.5); Carbon Dioxide 23 mmol/L (22-29); Chloride 102 mmol/L (98-107); Creatinine Clr Calc Pharmacy 99.9527; Globulin 2.7 g/dL (1.3-4.6); Glomerular Filtration Rate 111.8 mL/min (90-130); Glucose 300 mg/dL (65-115); Osmolality Calculated 305 mOsm/kg (285-295); Potassium 4.8 mmol/L (3.5-5.1); Sodium 140 mmol/L (136-145); Total Bilirubin 0.4 mg/dL (0.15-1.2); Total Protein 5.8 g/dL (6.6-8.7)
[2024-07-04 06:49] LABS: Glucose Point of Care 271 mg/dL (70-110)
[2024-07-04 06:57] LABS: Estmated Average Glucose 174; Hemoglobin A1C 7.7 % (4.0-6.0)
[2024-07-04] MEDS: aspirin 81 mg EC Tablet PO (08:39)
[2024-07-04] MEDS: insulin lispro 100 unit/1 mL SUBCUT ×4 (08:39→20:18)
[2024-07-04] MEDS: azithromycin 250 mg Tablet 500 MG PO (08:39)
[2024-07-04] MEDS: pantoprazole DR 40 mg Tablet PO (08:39)
[2024-07-04] MEDS: atorvastatin 40 mg Tablet PO (08:39)
[2024-07-04] MEDS: methylPREDNISolone sod succ 40 mg/mL INJ IVP (08:40)
[2024-07-04] MEDS: cefTRIAXone 1,000 mg SDV 1000 MG IVP (08:40)
[2024-07-04] MEDS: benzonatate 100 mg Capsule PO ×3 (08:41→20:18)
[2024-07-04] MEDS: lidocaine 5% Patch 1 PATCH TOPICAL (08:42)
[2024-07-04] MEDS: piperacillin-tazobactam 3.375 GM in sodium chloride 0.9% (plus) 50 ML IV ×2 (10:44→17:49)
[2024-07-04 11:30] LABS: Glucose Point of Care 257 mg/dL (70-110)
[2024-07-04] MEDS: BUPRENORPHINE 10 MCG/HR 1 EACH TRANSDERMA (16:16)
[2024-07-04 17:04] LABS: Glucose Point of Care 403 mg/dL (70-110)
--- NOTE | 2024-07-04 17:16 | P.PN_ITS ---
Subjective 2 Subjective: [place] [address], states chest wall pain is better today after lidocaine patch, expectorating more today Medications: Reviewed: Yes Vitals/I&O/Wt Last Vital Signs Temp 98.0 F 07/04/24 16:00 Pulse 79 07/04/24 16:00 Resp 20 H 07/04/24 16:00 BP 162/80 07/04/24 16:00 Pulse Ox 97 07/04/24 16:00 O2 Del Method Room Air 07/04/24 16:00 O2 Flow Rate 2 07/04/24 04:00 07/04/24 07/04/24 07/04/24 06:59 14:59 22:59 Intake Total 0 / 1200 240 / 240 530 / 770 Balance 0 / 1200 240 / 240 530 / 770 Weight last 48 hrs Weight 82.871 kg Weight 82.01 kg Weight 81.465 kg Physical Exam 2 Narrative: General: No acute distress, AO x3 HEENT: PERRLA, pupils bilaterally equal and reactive, pallors not present Chest: Normal vesicular breath sounds, no added sounds, equal good air entry bilaterally CVS: S1-S2 regular, no murmurs, no tachycardia, no gallops, no rubs Abdomen: Soft, nontender, no organomegaly, bowel sounds present Neuro: No focal deficits, no facial deformity, AO x3, power 5/5 in all limbs Data 07/04/24 05:00 07/04/24 05:00 Micro: Microbiology 07/03/24 07:56 Gram Stain - Final Sputum - Expectorated Sputum Sputum Culture - Preliminary 07/02/24 13:18 Blood Culture - Preliminary Blood NEGATIVE TO DATE 07/02/24 13:15 Blood Culture - Preliminary Blood NEGATIVE TO DATE A&P Assessment and plan (1) Dyspnea: Most likely in setting of COPD exacerbation along with right lower lobe pneumonia. Seen on chest x-ray. Influenza A, COVID-19, RSV negative. Oxygen supplementation keeping saturation over 90%. (2) COPD (chronic obstructive pulmonary disease): Solu-Medrol 40 mg every 8 hourly Pulmicort twice daily, ipratropium, Xopenex every 6 hours. Patient is a chronic smoker. Nicotine patch offered. Counseled again about abstaining from smoking. (3) Pneumonia: Check MRSA swab, sputum culture. Treat with IV ceftriaxone azithromycin for community-acquired pneumonia for now. If MRSA swab positive will add coverage. (4) Fall: Mechanical. Check CT head, CTA chest to rule out rib fracture. Will also rule out pulm embolism given new hypoxia. (5) Type 2 diabetes mellitus: Check A1c. Takes glipizide at home. Insulin sliding scale at low-dose protocol. Plan Urine drug screen positive for amphetamines. Occasional alcohol drinker. Last consumption on 07/01. Alcohol level negative currently. [facility] protocol. CODE STATUS: Full code Cardiac diet Protonix OPD prophylaxis Lovenox for DVT prophylaxis July 03 2024 Patient is having paroxysms of cough. States that it hurts every time he coughs in the second intercostal space.CTA was negative for PE yesterday. Right-sided pneumonia demonstrated. No noted rib fractures. Continue ceftriaxone and azithromycin. Pending sputum culture. MRSA screen is negative. Head CT without acute intracranial abnormalities. Age-related atrophy is noted and patchy hypoattenuation in deep white matter these findings could be related to chronic small vessel ischemic changes and old lacunar type infarcts. Currently he does not have any focal neurological deficits. Likely will order changes. Will start aspirin 81 mg daily and Lipitor 40 mg daily. Patient is a diabetic, however his significant other reports he does not manage his diet. Will check HbA1c and lipid panel. Current blood sugars are ranging between 3 25-3 80. Likely has been uncontrolled on metformin. Patient has been started on buprenorphine patches with PCP recently. We do not have these patches on formulary at this present time. Patient's family to bring in the patches for inpatient use. July 04, 2024 Continues to have coughing, expectorating more today- [place] [address] today, broaden gram negative coverage to include Psuedomonas- d/c Ceftriaxone, start Zosyn. MRSA nasal screen negative. Reduce steroids to once daily. resume home dose of buprenorphine PDMP PDMP Reviewed: Not Reviewed Attestations 2 Medical Necessity Statement*: increasing leukocytosis, broadening abx Coding Level of Care Code Acute Code for [facility] Fwd Diagnoses Dyspnea R06.00 COPD (chronic obstructive pulmonary disease) J44.9 Pneumonia J18.9 Fall W19.XXXA Type 2 diabetes mellitus E11.9
[2024-07-04] MEDS: enoxaparin 40 mg/0.4 mL Syringe SUBCUT (17:48)
[2024-07-04 20:16] LABS: Glucose Point of Care 416 mg/dL (70-110)
[2024-07-05] MEDS: piperacillin-tazobactam 3.375 GM in sodium chloride 0.9% (plus) 50 ML IV ×3 (01:26→18:09)
[2024-07-05 04:00] VITALS: BP 152/83; PULSE 65; RESP 18; TEMP 36.7; O2SAT 96
[2024-07-05 04:49] LABS: Basophils % 0.1 %; Hematocrit 36.2 % (37-53); Lymphocytes # 2.8 10^3/uL (0.8-4.8); Lymphocytes % 15.5 %; Mean Corpuscular HGB Conc 32.3 g/dL (30-55); Mean Corpuscular Hemoglobin 29.8 pg (27-33); Mean Corpuscular Volume 92.3 fl (82-101); Mean Platelet Volume 9.9 fL (7.4-10.4); Monocytes # 1.4 10^3/uL (0.2-0.9); Monocytes % 7.7 %; Neutrophils # 13.71 10^3/uL (1.8-7.7); Neutrophils % 75.9 %; Nucleated Red Blood Cells % 0 %; Platelet Count 598 10^3/cmm (157-399); Red Blood Count 3.92 10^6/uL (3.85-5.65); White Blood Count 18.07 10^3/uL (3.29-11.43)
[2024-07-05 05:17] LABS: Alanine Aminotransferase 33 U/L (0-41); Albumin Level 2.8 g/dL (3.5-5.2); Alkaline Phosphatase 88 U/L (40-130); Anion Gap 14.1 (5-19); Aspartate Amino Transferase 21 U/L (0-40); Blood Urea Nitrogen 26 mg/dL (8-23); Calcium 8.9 mg/dL (8.5-10.5); Carbon Dioxide 25 mmol/L (22-29); Chloride 104 mmol/L (98-107); Creatinine Clr Calc Pharmacy 99.5504; Glomerular Filtration Rate 95.8 mL/min (90-130); Glucose 244 mg/dL (65-115); Osmolality Calculated 301 mOsm/kg (285-295); Potassium 4.1 mmol/L (3.5-5.1); Sodium 139 mmol/L (136-145); Total Bilirubin 0.4 mg/dL (0.15-1.2); Total Protein 5.8 g/dL (6.6-8.7)
[2024-07-05 06:18] LABS: Glucose Point of Care 254 mg/dL (70-110)
[2024-07-05 08:25] VITALS: PULSE 65; RESP 18; O2SAT 93
[2024-07-05] MEDS: lidocaine 5% Patch 1 PATCH TOPICAL (08:59)
[2024-07-05] MEDS: methylPREDNISolone sod succ 40 mg/mL INJ IVP (09:02)
[2024-07-05] MEDS: insulin lispro 100 unit/1 mL SUBCUT ×3 (09:02→18:08)
[2024-07-05] MEDS: atorvastatin 40 mg Tablet PO (09:02)
[2024-07-05] MEDS: pantoprazole DR 40 mg Tablet PO (09:02)
[2024-07-05] MEDS: aspirin 81 mg EC Tablet PO (09:03)
[2024-07-05] MEDS: benzonatate 100 mg Capsule PO ×3 (09:03→20:09)
[2024-07-05] MEDS: azithromycin 250 mg Tablet 500 MG PO (09:06)
--- NOTE | 2024-07-05 09:06 | PC.SOCIAL ---
IMM Updated Updated pt on IMM. No questions voiced. Provided pt a copy. Initialed, dated, & timed a copy & placed in chart.
[2024-07-05 11:17] VITALS: BP 138/75; PULSE 70; RESP 19; O2SAT 96
--- NOTE | 2024-07-05 15:32 | P.PN_ITS ---
Subjective 2 Subjective: Patient is clinically better today. His cough appears to be better today. Blood sugars are uncontrolled. On room air today. Medications: Reviewed: Yes Vitals/I&O/Wt Last Vital Signs Temp 98.1 F 07/05/24 04:00 Pulse 70 07/05/24 11:17 Resp 19 H 07/05/24 11:17 BP 138/75 07/05/24 11:17 Pulse Ox 96 07/05/24 11:17 O2 Del Method Room Air 07/05/24 11:17 O2 Flow Rate 2 07/04/24 04:00 07/05/24 07/05/24 07/05/24 06:59 14:59 22:59 Intake Total 290 / 1830 290 / 290 Balance 290 / 730 290 / 290 Weight last 48 hrs Weight 82.055 kg Weight 82.871 kg Physical Exam 2 Narrative: General: No acute distress, AO x3 HEENT: PERRLA, pupils bilaterally equal and reactive, pallors not present Chest: Normal vesicular breath sounds, no added sounds, equal good air entry bilaterally CVS: S1-S2 regular, no murmurs, no tachycardia, no gallops, no rubs Abdomen: Soft, nontender, no organomegaly, bowel sounds present Neuro: No focal deficits, no facial deformity, AO x3, power 5/5 in all limbs Data 07/05/24 04:30 07/05/24 04:30 Micro: Microbiology 07/03/24 07:56 Gram Stain - Final Sputum - Expectorated Sputum Sputum Culture - Final A&P Assessment and plan (1) Dyspnea: Most likely in setting of COPD exacerbation along with right lower lobe pneumonia. Seen on chest x-ray. Influenza A, COVID-19, RSV negative. Oxygen supplementation keeping saturation over 90%. (2) COPD (chronic obstructive pulmonary disease): Solu-Medrol 40 mg every 8 hourly Pulmicort twice daily, ipratropium, Xopenex every 6 hours. Patient is a chronic smoker. Nicotine patch offered. Counseled again about abstaining from smoking. (3) Pneumonia: Check MRSA swab, sputum culture. Treat with IV ceftriaxone azithromycin for community-acquired pneumonia for now. If MRSA swab positive will add coverage. (4) Fall: Mechanical. Check CT head, CTA chest to rule out rib fracture. Will also rule out pulm embolism given new hypoxia. (5) Type 2 diabetes mellitus: Check A1c. Takes glipizide at home. Insulin sliding scale at low-dose protocol. Plan Urine drug screen positive for amphetamines. Occasional alcohol drinker. Last consumption on 07/01. Alcohol level negative currently. [facility] protocol. CODE STATUS: Full code Cardiac diet Protonix OPD prophylaxis Lovenox for DVT prophylaxis July 03 2024 Patient is having paroxysms of cough. States that it hurts every time he coughs in the second intercostal space.CTA was negative for PE yesterday. Right-sided pneumonia demonstrated. No noted rib fractures. Continue ceftriaxone and azithromycin. Pending sputum culture. MRSA screen is negative. Head CT without acute intracranial abnormalities. Age-related atrophy is noted and patchy hypoattenuation in deep white matter these findings could be related to chronic small vessel ischemic changes and old lacunar type infarcts. Currently he does not have any focal neurological deficits. Likely will order changes. Will start aspirin 81 mg daily and Lipitor 40 mg daily. Patient is a diabetic, however his significant other reports he does not manage his diet. Will check HbA1c and lipid panel. Current blood sugars are ranging between 3 25-3 80. Likely has been uncontrolled on metformin. Patient has been started on buprenorphine patches with PCP recently. We do not have these patches on formulary at this present time. Patient's family to bring in the patches for inpatient use. July 04, 2024 Continues to have coughing, expectorating more today- [place] [address] today, broaden gram negative coverage to include Psuedomonas- d/c Ceftriaxone, start Zosyn. MRSA nasal screen negative. Reduce steroids to once daily. resume home dose of buprenorphine July 05, 2024 Feels slightly better today. Has been able to be weaned down to room air. WBC count stable at 18,000 today. Still having pain over the right chest wall with coughing however states this is improved over previous. Home dose of buprenorphine subcutaneous has been resumed. Blood sugars are uncontrolled between 2 50-4 1 6. Sputum culture with normal respiratory anand Add Lantus 10 units daily. Continue Zosyn and closely monitor WBC count next 24 hours. Change IV steroids to prednisone 40 mg daily. If continues to do better next 24 hours, anticipate discharge home. PDMP PDMP Reviewed: Not Reviewed Attestations 2 Medical Necessity Statement*: Continued need of IV antibiotics, clinically improving today. Anticipate discharge upcoming 24 hours if continues to clinically improve. Coding Level of Care Code Acute Code for [facility] Fwd Diagnoses Dyspnea R06.00 COPD (chronic obstructive pulmonary disease) J44.9 Pneumonia J18.9 Fall W19.XXXA Type 2 diabetes mellitus E11.9
[2024-07-05 15:46] VITALS: BP 143/79; PULSE 71; RESP 16; TEMP 36.7; O2SAT 94
[2024-07-05 16:35] LABS: Glucose Point of Care 339 mg/dL (70-110)
[2024-07-05] MEDS: enoxaparin 40 mg/0.4 mL Syringe SUBCUT (18:08)
[2024-07-05] MEDS: insulin glargine 100 units/1 mL 10 UNIT SUBCUT (18:15)
[2024-07-05 19:58] VITALS: BP 155/76; PULSE 72; RESP 18; TEMP 36.7; O2SAT 96
[2024-07-05 20:57] LABS: Glucose Point of Care 591 mg/dL (70-110)
[2024-07-05 20:57] LABS: Glucose Point of Care 500 mg/dL (70-110)
[2024-07-05] MEDS: insulin lispro 100 unit/1 mL 20 UNIT SUBCUT (21:13)
[2024-07-06] VITALS: BP 130/49; PULSE 63; RESP 19; TEMP 36.4
[2024-07-06] MEDS: piperacillin-tazobactam 3.375 GM in sodium chloride 0.9% (plus) 50 ML IV (01:26)
[2024-07-06 03:51] VITALS: BP 154/74; PULSE 66; RESP 18; TEMP 36.6; O2SAT 96
[2024-07-06 05:20] VITALS: BMI 23.2
[2024-07-06 06:04] LABS: Basophils % 0.1 %; Eosinophils # 0.1 10^3/uL (0.0-0.8); Eosinophils % 0.3 %; Hematocrit 39.4 % (37-53); Lymphocytes # 3.2 10^3/uL (0.8-4.8); Lymphocytes % 21.2 %; Mean Corpuscular HGB Conc 32.2 g/dL (30-55); Mean Corpuscular Hemoglobin 30.2 pg (27-33); Mean Corpuscular Volume 93.8 fl (82-101); Mean Platelet Volume 11.2 fL (7.4-10.4); Monocytes # 1.2 10^3/uL (0.2-0.9); Monocytes % 8.3 %; Neutrophils # 10.31 10^3/uL (1.8-7.7); Nucleated Red Blood Cells % 0 %; Platelet Count 407 10^3/cmm (157-399); Red Cell Distribution Width 11.9 % (12.1-15.1); White Blood Count 14.94 10^3/uL (3.29-11.43)
[2024-07-06 06:30] LABS: Glucose Point of Care 253 mg/dL (70-110)
[2024-07-06 06:35] LABS: Alanine Aminotransferase 39 U/L (0-41); Albumin Level 2.9 g/dL (3.5-5.2); Alkaline Phosphatase 93 U/L (40-130); Anion Gap 14.1 (5-19); Aspartate Amino Transferase 24 U/L (0-40); Blood Urea Nitrogen 20 mg/dL (8-23); Calcium 9.2 mg/dL (8.5-10.5); Carbon Dioxide 27 mmol/L (22-29); Chloride 102 mmol/L (98-107); Creatinine Clr Calc Pharmacy 98.5214; Globulin 3.1 g/dL (1.3-4.6); Glomerular Filtration Rate 111.8 mL/min (90-130); Glucose 283 mg/dL (65-115); Osmolality Calculated 301 mOsm/kg (285-295); Potassium 4.1 mmol/L (3.5-5.1); Sodium 139 mmol/L (136-145); Total Bilirubin 0.5 mg/dL (0.15-1.2)
[2024-07-06 08:00] VITALS: BP 160/84; PULSE 62; RESP 16; TEMP 36.8; O2SAT 97
[2024-07-06] MEDS: predniSONE 20 mg Tablet 40 MG PO (08:41)
[2024-07-06] MEDS: pantoprazole DR 40 mg Tablet PO (08:41)
[2024-07-06] MEDS: benzonatate 100 mg Capsule PO (08:41)
[2024-07-06] MEDS: aspirin 81 mg EC Tablet PO (08:41)
[2024-07-06] MEDS: atorvastatin 40 mg Tablet PO (08:41)
[2024-07-06] MEDS: insulin lispro 100 unit/1 mL SUBCUT (08:42)
[2024-07-06 10:00] VITALS: PULSE 69; RESP 18; O2SAT 96
--- NOTE | 2024-07-06 11:05 | P.DS_ITS ---
Discharge Providers Date of Admission: 07/02/24 15:53 Date of Discharge: July 06, 2024 Attending Provider at Admission: Pat Morales MD Attending Provider at Discharge: Pat Morales MD Primary Care Provider: Mane Carmona DO Diagnoses at Discharge Discharge Diagnosis (1) Dyspnea: Status: Acute (2) COPD (chronic obstructive pulmonary disease): Status: Acute (3) Pneumonia: Status: Acute (4) Fall: Status: Acute (5) Type 2 diabetes mellitus: Status: Acute Reason for Visit Reason for Visit: SOB Hospital Course Hospital Course 69M admitted to the hospital on 07/02/24 with past medical history of chronic smoking, type 2 diabetes mellitus, chronic pain management, chronic right knee pain c/o difficulty breathing for a long time but got worse after fall today. He was trying scraped his yard when he fell and started having pain in the right side of the chest along with difficulty in breathing. He was diagnosed with COPD exacerbation and RLL pneumonia. He was initially started on rx with ceftraixone and azithromycin. then switched to Zosyn and azithromycin when [place] [address]. Witj switch to Zosyn, his WBC count started improving. He was initially requiring supplemental 02 at admission, he was able to be weaned down to RA by the time of discharge. He also received iv steroids, scheduled neobulization. For persisting Right side chest pain. he underwent CTA chest which was negative for PE or rib fractures. Likely musculoskeletal strain. This pain was improved with lidocaine patch locally. Hiis home patches of buprenorphine were continued during admission. 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 He was started on aspirin 81 mg daily and Lipitor 40 mg daily. Hba1c > 7.5, counselled regading diabetic diet. No changes were made to his medications as patient reported that Hba1c is downtrending from 9 to current value on metformin and glipizide. He is being discharged today to continue po abx and po steroids at home. Additionally added albuterol inhalation. He is clinically improved at discharge and eager to return home. Physical Exam Narrative: General: No acute distress, AO x3 HEENT: PERRLA, pupils bilaterally equal and reactive, pallors not present Chest: Normal vesicular breath sounds, no added sounds, equal good air entry bilaterally CVS: S1-S2 regular, no murmurs, no tachycardia, no gallops, no rubs Abdomen: Soft, nontender, no organomegaly, bowel sounds present Neuro: No focal deficits, no facial deformity, AO x3, power 5/5 in all limbs Discharge Data Studies Completed and Pending Completed Studies During Hospitalization Category Date Time Status CT head wo con* [id number] Routine Cat Scan 07/02/24 16:51 Completed CTA chest [CT angio chest PE protcl [id number]] Routine Cat Scan 07/02/24 16:51 Completed XR chest 1V portable [id number] Stat Exams 07/02/24 10:40 Completed XR knee RT 3V* [id number] Stat Exams 07/02/24 10:35 Completed Radiology Impressions Knee X-Ray 07/02/24 10:35 IMPRESSION: 1. End-stage osteoarthritis with erli-pw-odzi articulation. See above. 2. No fracture. Chest X-Ray 07/02/24 10:40 IMPRESSION: 1. Diffuse interstitial infiltrate in the RIGHT lung. This could represent interstitial pneumonia or chronic change. 2. Ill-defined 2 cm soft tissue density in the RIGHT upper lung zone. A mass or focal infiltrate cannot be excluded. 3. Postoperative changes in the RIGHT upper lobe. Chest CTA 07/02/24 16:51 IMPRESSION: 1. Right lower lobe pneumonia with mild patchy infiltrates in the anterior right upper lobe and right middle lobe. Follow-up is recommended to ensure resolution. 2. Small right pleural effusion. 3. Mild coronary arterial calcification. 4. No pulmonary embolism detected. Head CT 07/02/24 16:51 IMPRESSION: 1. Age-related atrophy with patchy hypoattenuation in the deep white matter as well as within the bilateral basal ganglia, central linda, and thalami. These findings could all be related to chronic small-vessel ischemic change and old lacunar type infarcts. However, an acute infarct is difficult to exclude on this exam. If clinically indicated, MRI may be helpful for further evaluation. 2. No acute intracranial hemorrhage seen. Laboratory Results WBC 14.94 10^3/uL (3.29-11.43) H 07/06/24 05:36 RBC 4.20 10^6/uL (3.85-5.65) 07/06/24 05:36 Hgb 12.70 g/dL (11.27-16.99) 07/06/24 05:36 Hct 39.4 % (37-53) 07/06/24 05:36 MCV 93.8 fl (82-101) 07/06/24 05:36 MCH 30.2 pg (27-33) 07/06/24 05:36 MCHC 32.2 g/dL (30-55) 07/06/24 05:36 RDW 11.9 % (12.1-15.1) L 07/06/24 05:36 Plt Count 407 10^3/cmm (157-399) H D 07/06/24 05:36 MPV 11.2 fL (7.4-10.4) H 07/06/24 05:36 Neut % (Auto) 69.0 % 07/06/24 05:36 Lymph % (Auto) 21.2 % 07/06/24 05:36 [place] % (Auto) 8.3 % 07/06/24 05:36 Eos % (Auto) 0.3 % 07/06/24 05:36 Baso % (Auto) 0.1 % 07/06/24 05:36 Neut # (Auto) 10.31 10^3/uL (1.8-7.7) H 07/06/24 05:36 Lymph # (Auto) 3.2 10^3/uL (0.8-4.8) 07/06/24 05:36 [place] # (Auto) 1.2 10^3/uL (0.2-0.9) H 07/06/24 05:36 Eos # (Auto) 0.1 10^3/uL (0.0-0.8) 07/06/24 05:36 Baso # (Auto) 0.0 10^3/uL (0.0-0.1) 07/06/24 05:36 Nucleated RBC % (auto) 0 % 07/06/24 05:36 Nucleated RBCs # 0.0 /100WBC 07/06/24 05:36 Specimen Type Arterial 07/02/24 10:37 Sample Site Radial, left 07/02/24 10:37 ABG pH 7.43 (7.35-7.45) 07/02/24 10:37 ABG pCO2 39.4 mmHg (35-45) 07/02/24 10:37 ABG pO2 59.4 mmHg (80.0-100.0) L 07/02/24 10:37 ABG PO2/FiO2 Ratio 282 07/02/24 10:37 ABG HCO3 26.1 mmol/L (22-26) H 07/02/24 10:37 ABG O2 Saturation 91.2 07/02/24 10:37 ABG Base Excess 1.7 mmol/L (-2.0-2.0) 07/02/24 10:37 Geoffrey Test Pos 07/02/24 10:37 A-a O2 Gradient 5.6 mmHg (5-10) 07/02/24 10:37 Hematocrit 35.6 % (42-52) L 07/02/24 10:37 Hgb O2 Saturation 89.1 % (95-100) L 07/02/24 10:37 Carboxyhemoglobin 1.2 %THgb (0.4-20.1) 07/02/24 10:37 Methemoglobin 1.1 % (0.4-1.5) 07/02/24 10:37 Total Hemoglobin 11.6 g/dL (14-18) L 07/02/24 10:37 Sodium 136.0 mmol/L (131-143) 07/02/24 10:37 Potassium 3.1 mmol/L (3.5-5.0) L 07/02/24 10:37 Glucose 271.0 mg/dL (70-115) H 07/02/24 10:37 Ionized Calcium 1.2 mmol/L (1.1-1.4) 07/02/24 10:37 O2 Delivery Device Room air 07/02/24 10:37 FiO2 21.0 % 07/02/24 10:37 Fish Frog Or Oyster Farmer ID [place] 07/02/24 10:37 Sodium 139 mmol/L (136-145) 07/06/24 05:36 Potassium 4.1 mmol/L (3.5-5.1) 07/06/24 05:36 Chloride 102 mmol/L (98-107) 07/06/24 05:36 Carbon Dioxide 27 mmol/L (22-29) 07/06/24 05:36 Anion Gap 14.1 (5-19) 07/06/24 05:36 BUN 20 mg/dL (8-23) 07/06/24 05:36 Creatinine 0.7 mg/dL (0.7-1.2) 07/06/24 05:36 GFR Calculation 111.8 mL/min (90-130) 07/06/24 05:36 Glucose 283 mg/dL (65-115) H 07/06/24 05:36 POC Glucose 287 mg/dL (70-110) H 07/06/24 11:48 Estimat Average Glucose 174 07/04/24 05:00 Hemoglobin A1c 7.7 % (4.0-6.0) H 07/04/24 05:00 Calculated Osmolality 301 mOsm/kg (285-295) H 07/06/24 05:36 Lactic Acid 1.7 mmol/L (0.5-2.2) 07/02/24 11:02 Calcium 9.2 mg/dL (8.5-10.5) 07/06/24 05:36 Total Bilirubin 0.5 mg/dL (0.15-1.2) 07/06/24 05:36 AST 24 U/L (0-40) 07/06/24 05:36 ALT 39 U/L (0-41) 07/06/24 05:36 Alkaline Phosphatase 93 U/L (40-130) 07/06/24 05:36 Troponin T Baseline 43 ng/L (0-15) H 07/02/24 11:02 Troponin T 120 Minute 37.12 ng/L (0-15) H 07/02/24 13:15 Delta Troponin T -5.88 ABS# (0-10) L 07/02/24 13:15 Troponin T Hi Sens 6Hr 27.06 ng/L (0-15) H 07/02/24 17:12 Troponin T Hi Sens 6Hr Delta -15.94 ng/L (0-12) L 07/02/24 17:12 Total Protein 6.0 g/dL (6.6-8.7) L 07/06/24 05:36 Albumin 2.9 g/dL (3.5-5.2) L 07/06/24 05:36 Globulin 3.1 g/dL (1.3-4.6) 07/06/24 05:36 Triglycerides 78 mg/dL (0-150) 07/04/24 05:00 Cholesterol 115 mg/dL (0-200) 07/04/24 05:00 LDL Cholesterol, Calc 65 mg/dL (50-129) 07/04/24 05:00 HDL Cholesterol 34 mg/dL (60-100) L 07/04/24 05:00 LDL/HDL Ratio 1.91 RATIO (0.00-3.22) 07/04/24 05:00 Cholesterol/HDL Ratio 3.38 mg/dL (1.0-5.00) 07/04/24 05:00 Urine Color Yellow (Yellow) 07/02/24 17:01 Urine Appearance Clear (CLEAR) 07/02/24 17:01 Urine pH 5.5 (5-7) 07/02/24 17:01 Ur Specific [place] 1.017 (1.005-1.030) 07/02/24 17:01 Urine Protein Trace (Negative) A 07/02/24 17:01 Urine Glucose (UA) 2+ (Normal) H 07/02/24 17:01 Urine Ketones Negative (Negative) 07/02/24 17:01 Urine Blood Negative (Negative) 07/02/24 17:01 Urine Nitrate Negative (Negative) 07/02/24 17:01 Urine Bilirubin Negative (Negative) 07/02/24 17:01 Urine Urobilinogen 1.0 mg/dL (Negative) 07/02/24 17:01 Ur Leukocyte Esterase Negative (Negative) 07/02/24 17:01 Urine RBC None /hpf (0-2) 07/02/24 17:01 Urine WBC None /hpf (0-5) 07/02/24 17:01 Ur Squamous Epith Cells None /hpf (0-5) 07/02/24 17:01 Amorphous Sediment Not Reportable 07/02/24 17:01 Urine Bacteria None /hpf (NONE) 07/02/24 17:01 Urine Mucus None /hpf 07/02/24 17:01 Nasal MRSA (PCR) Not detected (Negative) 07/02/24 23:35 Salicylates < 0.3 mg/dL (3-10) L 07/02/24 11:02 Urine Opiates Screen Negative ng/mL (Negative) 07/02/24 17:01 Acetaminophen < 5.0 ug/mL (10-30) L 07/02/24 11:02 Ur Barbiturates Screen Negative ng/mL (Negative) 07/02/24 17:01 Ur Phencyclidine Scrn Negative ng/mL (Negative) 07/02/24 17:01 Ur Amphetamines Screen Positive ng/mL (Negative) H 07/02/24 17:01 U Benzodiazepines Scrn Negative ng/mL (Negative) 07/02/24 17:01 Urine Cocaine Screen Negative ng/mL (Negative) 07/02/24 17:01 U Marijuana (THC) Screen Positive ng/mL (Negative) H 07/02/24 17:01 Ethyl Alcohol < 10 mg/dL (0-10) 07/02/24 11:02 Influenza A (PCR) Negative (Negative) 07/02/24 13:01 Influenza Type B (PCR) Negative (Negative) 07/02/24 13:01 RSV (PCR) Negative (Negative) 07/02/24 13:01 SARS-CoV-2 (PCR) Negative (Negative) 07/02/24 13:01 Vitals Last Vital Signs Temp 97.8 F 07/06/24 12:00 Pulse 73 07/06/24 12:00 Resp 15 07/06/24 12:00 BP 155/83 07/06/24 12:00 Pulse Ox 94 07/06/24 12:00 O2 Del Method Room Air 07/06/24 12:00 O2 Flow Rate 2 07/04/24 04:00 Discharge Plan Discharge Patient Disposition: Home Condition: Stable Prescriptions: New atorvastatin 40 mg Tablet 40 mg PO DAILY 30 Days Qty: 30 0RF aspirin 81 mg Tablet,Delayed Release (Dr/Ec) 81 mg PO DAILY 30 Days Qty: 30 0RF albuterol sulfate 90 mcg/actuation aerosol powdr breath activated 1 inh inhalation Q6H PRN (Reason: shortness of breath or wheezing) 30 Days Qty: 1 0RF Continued (DME) Diabetic Shoes See Rx Instructions .Route .MEDSUPPLY Qty: 1 0RF Rx Instructions: As directed Home 3 x insoles meloxicam 15 mg tablet 15 mg PO DAILY losartan 100 mg tablet 100 mg PO DAILY metformin 500 mg tablet extended release 24 hr 2,000 mg PO QAM glipizide 5 mg tablet 5 mg PO BID buprenorphine 10 mcg/hour patch weekly 10 mcg topical Q7D Discharge Orders: Discharge Order (Routine); Ordered 07/06/24 Ordered By: Pat Morales Referrals: Mane Carmona DO [Primary Care Provider] - (We have notified your physician's clinic of the need for a follow-up appointment to be scheduled. If you have not heard from them within the next 2 business days, please call them directly. ) Patient Instructions: Aspirin (By mouth), Amoxicillin (By mouth), Atorvastatin (By mouth), Levofloxacin (By mouth), Viral Pneumonia (DC), COPD (Chronic Obstructive Pulmonary Disease) (DC), COPD Stoplight, Opioid Safety Discharge Attestations Time Spent in Discharge Care*: greater than 30 min Quality Metrics Clinical Quality Measures [ No reported AMI, CVA or VTE this stay] Coding Level of Care Code Acute Code for [facility] Fwd Diagnoses Dyspnea R06.00 COPD (chronic obstructive pulmonary disease) J44.9 Pneumonia J18.9 Fall W19.XXXA Type 2 diabetes mellitus E11.9
[2024-07-06 11:51] LABS: Glucose Point of Care 287 mg/dL (70-110)
[2024-07-06 12:00] VITALS: BP 155/83; PULSE 73; RESP 15; TEMP 36.6; O2SAT 94
== END 2024-07-06 12:50 | disposition home or self-care (01) | DRG 190 ==
LOC: ER 13:35 → ER IP 15:54 → CSU 16:18 → ER IP 16:36 → MEDSURG 18:14
PROVIDERS: Student in an Organized Health Care Education/Training Program; Admitting Provider Student in an Organized Health Care Education/Training Program; Emergency Provider Family Medicine; PCP Family Medicine; Visit Provider Student in an Organized Health Care Education/Training Program
DX: J44.0 Chronic obstructive pulmonary disease with (acute) lower respiratory infection (principal); J18.9 Pneumonia, unspecified organism; J44.1 Chronic obstructive pulmonary disease with (acute) exacerbation; E11.9 Type 2 diabetes mellitus without complications; G89.29 Other chronic pain; M25.561 Pain in right knee; F17.200 Nicotine dependence, unspecified, uncomplicated; Z79.84 Long term (current) use of oral hypoglycemic drugs
CPT/HCPCS: 36415; 36416; 36600; 70450; 71045; 71275; 73562; 80051; 80053; 80061; 80306; 80307; 81001; 82330; 82805; 82962; 83036; 83605; 84484; 85025; 87040; 87070; 87205; 87637; 93005; 94640; 96365; 96372; 96375; 99285; J0456; J0696; J1650; J1815; J2543; J2919; J7050; J7512; Q0144

== ENCOUNTER 2024-07-09 08:31 | Outpatient (CLI) | payer MEDICARE, SELFPAY ==
--- NOTE | 2024-07-09 09:00 | CT_ITS ---
WS: [id number] CT RIGHT KNEE, NONCONTRAST HISTORY: right knee pain/injury/joint effusion Technique: All CT scans at [facility] use at least one of these dose optimization techniques: automated exposure control; mA and/or kV adjustment per patient size (includes targeted exams where dose is matched to clinical indication); or iterative reconstruction. DLP: 471.08 mGy.cm COMPARISON: Radiograph 07/02/2024 No acute fractures. Moderate tricompartment joint space narrowing with marginal osteophytes. Chondrocalcinosis bilaterally along the medial and lateral joint spaces. There is an orthopedic staple through the medial femoral condyle which is a fractured and adjacent dystrophic hypertrophic bone formation. Small suprapatellar joint effusion. Slightly loculated 11 mm intra-articular body within the joint effusion. Scattered calcifications in the popliteal artery. Slight anterior translation of the tibial plateau with respect to the femoral condyle along with buckling of the PCL. Although this is not the imaging study to evaluate the ACL there is a suspected tear. Only a small portion of the proximal ACL is identified. TT-TG interval: 6.[address]/CT knee RT wo con* [id number] IMPRESSION: 1. Moderate tricompartment osteoarthritis. 2. Fractured orthopedic staple medial femoral condyle. 3. Medial and lateral compartment chondrocalcinosis. 4. No fracture or dislocation.
== END 2024-07-09 08:32 | disposition home or self-care (01) ==
LOC: RAD 08:33
PROVIDERS: PCP Family Medicine; Visit Provider Student in an Organized Health Care Education/Training Program
DX: M25.561 Pain in right knee (principal); M25.461 Effusion, right knee; S89.91XA Unspecified injury of right lower leg, initial encounter; M17.11 Unilateral primary osteoarthritis, right knee; R93.6 Abnormal findings on diagnostic imaging of limbs; M11.261 Other chondrocalcinosis, right knee; M25.761 Osteophyte, right knee; I70.8 Atherosclerosis of other arteries
CPT/HCPCS: 73700

== ENCOUNTER → 2024-07-10 10:33 | Outpatient (BNVA) | payer MEDICARE, SELFPAY | PROVIDERS: PCP Family Medicine; Visit Provider Student in an Organized Health Care Education/Training Program | DX: E11.9 Type 2 diabetes mellitus without complications (principal); F17.210 Nicotine dependence, cigarettes, uncomplicated; M17.11 Unilateral primary osteoarthritis, right knee; M23.41 Loose body in knee, right knee | CPT/HCPCS: 99214 ==

== ENCOUNTER → 2024-08-01 12:22 | Outpatient (BNVA) | payer MEDICARE, SELFPAY | PROVIDERS: PCP Family Medicine; Visit Provider Podiatrist Foot & Ankle Surgery | DX: E11.42 Type 2 diabetes mellitus with diabetic polyneuropathy (principal); L60.3 Nail dystrophy; L84 Corns and callosities; G62.9 Polyneuropathy, unspecified; Z79.84 Long term (current) use of oral hypoglycemic drugs | CPT/HCPCS: 11056; 11721 ==

== ENCOUNTER → 2024-08-06 08:27 | Outpatient (BNVA) | payer MEDICARE, SELFPAY | PROVIDERS: PCP Family Medicine; Visit Provider Family Medicine | DX: Z01.818 Encounter for other preprocedural examination (principal); M17.11 Unilateral primary osteoarthritis, right knee | CPT/HCPCS: 80053; 81003; 85025; 99213 ==

== ENCOUNTER 2024-08-07 14:33 | Outpatient (CLI) | payer MEDICARE, SELFPAY ==
--- NOTE | 2024-08-07 15:00 | CT_ITS ---
WS: [id number] CT RIGHT KNEE, NONCONTRAST [facility] TECHNIQUE: Noncontrast CT of the RIGHT knee to include the RIGHT hip and ankle. CLINICAL INFORMATION: DJD KNEE DLP: 992.[address] scans at [facility] use at least one of these dose optimization techniques: automated exposure control; mA and/or kV adjustment per patient size (includes targeted exams where dose is matched to clinical indication); or iterative reconstruction. FINDINGS: Moderate to advanced tricompartment arthritis RIGHT knee. Tiny suprapatellar effusion. Vascular calcification. Hypertrophic changes along the joint line. Calcified enlarged prostate measuring 3.4 cm. Degenerative arthritis sacroiliac joints. Moderate degenerative narrowing both hips. Normal pubic rami. CT/CT knee RT [facility] [id number] IMPRESSION: Images obtained for preoperative purposes.
== END 2024-08-07 14:34 | disposition home or self-care (01) ==
LOC: RAD 14:36
PROVIDERS: PCP Family Medicine; Visit Provider Student in an Organized Health Care Education/Training Program
DX: M17.11 Unilateral primary osteoarthritis, right knee (principal); M23.41 Loose body in knee, right knee; I70.90 Unspecified atherosclerosis; R93.6 Abnormal findings on diagnostic imaging of limbs; N40.0 Benign prostatic hyperplasia without lower urinary tract symptoms; M46.1 Sacroiliitis, not elsewhere classified; M16.0 Bilateral primary osteoarthritis of hip
CPT/HCPCS: 73700

== ENCOUNTER 2024-08-19 07:53 | Outpatient (CLI) | payer MEDICARE, SELFPAY ==
[2024-08-19 08:24] LABS: Basophils # 0.1 10^3/uL (0.0-0.1); Basophils % 0.9 %; Eosinophils # 0.4 10^3/uL (0.0-0.8); Eosinophils % 5.8 %; Hematocrit 43.3 % (37-53); Lymphocytes % 30.6 %; Mean Corpuscular Hemoglobin 30.4 pg (27-33); Mean Corpuscular Volume 91.9 fl (82-101); Mean Platelet Volume 10.1 fL (7.4-10.4); Monocytes # 0.8 10^3/uL (0.2-0.9); Monocytes % 12.3 %; Neutrophils # 3.32 10^3/uL (1.8-7.7); Neutrophils % 50.2 %; Nucleated Red Blood Cells % 0 %; Platelet Count 245 10^3/cmm (157-399); Red Blood Count 4.71 10^6/uL (3.85-5.65); Red Cell Distribution Width 13.3 % (12.1-15.1)
[2024-08-19 08:53] LABS: Bacteria Urine None Seen /hpf; RBC Urine 0-2 /hpf (0-2); Squamous Epithelial Cell Urine 0-5 /hpf (0-5); WBC Urine 0-5 /hpf (0-5)
[2024-08-19 09:00] LABS: Alanine Aminotransferase 37 U/L (0-41); Albumin Level 4.1 g/dL (3.5-5.2); Alkaline Phosphatase 94 U/L (40-130); Anion Gap 15.2 (5-19); Aspartate Amino Transferase 28 U/L (0-40); Blood Urea Nitrogen 17 mg/dL (8-23); Calcium 9.4 mg/dL (8.5-10.5); Carbon Dioxide 25 mmol/L (22-29); Chloride 102 mmol/L (98-107); Globulin 2.7 g/dL (1.3-4.6); Glomerular Filtration Rate 111.8 mL/min (90-130); Glucose 275 mg/dL (65-115); Osmolality Calculated 297 mOsm/kg (285-295); Potassium 4.2 mmol/L (3.5-5.1); Sodium 138 mmol/L (136-145); Total Bilirubin 1.6 mg/dL (0.15-1.2); Total Protein 6.8 g/dL (6.6-8.7)
[2024-08-19 09:02] LABS: Add Urine Culture? No; Add Urine Microscopic? YES; Bilirubin Urine Neg (Negative); Blood Urine Neg (Negative); Glucose Urine UA 4+ (Normal); Ketones Urine Negative (Negative); Leukocyte Esterase Urine Negative (Negative); Nitrate Urine Negative (Negative); Protein Urine Neg (Negative); Specific Gravity, Urine 1.015 (1.005-1.030); Urine Appearance Clear (CLEAR); Urine Color Yellow (Yellow); Urobilinogen Urine Neg (Negative); pH Urine 6 (5-7)
[2024-08-19 09:18] LABS: Estmated Average Glucose 174; Hemoglobin A1C 7.7 % (4.0-6.0)
[2024-08-22 22:44] LABS: Cotinine, Urine 758 ng/mL; Nicotine, Urine >1000 ng/mL
== END 2024-08-19 07:54 | disposition home or self-care (01) ==
LOC: LAB 07:54
PROVIDERS: PCP Family Medicine; Visit Provider Student in an Organized Health Care Education/Training Program
DX: Z01.818 Encounter for other preprocedural examination (principal); F17.210 Nicotine dependence, cigarettes, uncomplicated; E11.9 Type 2 diabetes mellitus without complications
CPT/HCPCS: 36415; 80053; 80323; 81001; 83036; 85025

== ENCOUNTER 2024-09-16 19:12 | Observation (INO) | payer MEDICARE, SELFPAY ==
[2024-09-16] VITALS (8 sets, daily range): BP systolic 103–140; BP diastolic 60–87; PULSE 77–88; RESP 16–18; TEMP 36.6; O2SAT 93–98; BMI 24.0
--- NOTE | 2024-09-16 20:15 | ECG_ITS ---
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 Measurements Intervals [place] Rate: 86 P: 66 [place]: 173 QRS: -30 QRSD: 122 T: 89 QT: 382 QTc: 459 Interpretive Statements SINUS RHYTHM SEPTAL MYOCARDIAL INFARCTION , OF INDETERMINATE AGE [40+ ms Q WAVE IN V1/V2] INTERPRETATION BASED ON A DEFAULT AGE OF 40 YEARS NONSPECIFIC INTRAVENTRICULAR CONDUCTION DELAY Compared to ECG 07/02/2024 16:56:34 Myocardial infarct finding now present Intraventricular conduction delay no longer present Electronically Signed On 09-18-2024 23:29:30 CDT by Meaghan Mckeon M.D. [email or web address]
--- NOTE | 2024-09-16 20:15 | XRR_ITS ---
PROCEDURE INFORMATION: Exam: XR Chest Exam date and time: 09/16/2024 8:29 PM Age: 69 years old Clinical indication: Pain; Chest pressure; Additional info: Chest pain TECHNIQUE: Imaging protocol: Radiologic exam of the chest. Views: 1 view. COMPARISON: CT angio chest PE protcl [id number] 07/02/2024 5:46 PM FINDINGS: Lungs: Unremarkable. No consolidation or mass. Pleural spaces: Unremarkable. No pleural effusion. No pneumothorax. Heart/Mediastinum: Unremarkable. No cardiomegaly. Bones/joints: Unremarkable. XR/XR chest 1V portable [id number] IMPRESSION: No acute findings.
--- NOTE | 2024-09-16 20:16 | CTR_ITS ---
PROCEDURE INFORMATION: Exam: CT Head Without Contrast Exam date and time: 09/16/2024 8:33 PM Age: 69 years old Clinical indication: Speech disturbance; Slurred speech; Additional info: CVA - last known well >24 hrs TECHNIQUE: Imaging protocol: Computed tomography of the head without contrast. Radiation optimization: All CT scans at this facility use at least one of these dose optimization techniques: automated exposure control; mA and/or kV adjustment per patient size (includes targeted exams where dose is matched to clinical indication); or iterative reconstruction. COMPARISON: CT head wo con* [id number] 07/02/2024 5:46 PM RADIATION DOSE METRICS: Total DLP (mGy-cm): 1105.98 FINDINGS: Brain: There is mild chronic periventricular white matter ischemic change. There is no evidence of mass effect, infarct or hemorrhage. Cerebral ventricles: No ventriculomegaly. No midline shift. Paranasal sinuses: Visualized sinuses are unremarkable. No fluid levels. Mastoid air cells: Visualized mastoid air cells are well aerated. Bones: Unremarkable. No acute fracture. Soft tissues: Unremarkable. CT/CT head wo con* [id number] IMPRESSION: 1. No acute findings. 2. Mild chronic ischemic changes noted
[2024-09-16] MEDS: aspirin 81 mg Chew Tablet 324 MG PO (20:44)
[2024-09-16 20:57] LABS: Troponin(5th) Baseline 65 ng/L (0-15)
[2024-09-16 20:59] LABS: Alanine Aminotransferase 24 U/L (0-41); Albumin Level 3.9 g/dL (3.5-5.2); Alkaline Phosphatase 83 U/L (40-130); Anion Gap 12.8 (5-19); Aspartate Amino Transferase 26 U/L (0-40); Blood Urea Nitrogen 19 mg/dL (8-23); Calcium 9.6 mg/dL (8.5-10.5); Carbon Dioxide 29 mmol/L (22-29); Chloride 100 mmol/L (98-107); Creatinine Clr Calc Pharmacy 99.7964; Globulin 2.1 g/dL (1.3-4.6); Glomerular Filtration Rate 111.8 mL/min (90-130); Glucose 149 mg/dL (65-115); Osmolality Calculated 291 mOsm/kg (285-295); Potassium 3.8 mmol/L (3.5-5.1); Sodium 138 mmol/L (136-145); Total Bilirubin 2.3 mg/dL (0.15-1.2)
[2024-09-16 21:00] LABS: Alcohol Level < 10 mg/dL (0-10)
[2024-09-16 21:01] LABS: Basophils % 0.5 %; Eosinophils # 0.2 10^3/uL (0.0-0.8); Eosinophils % 2.1 %; Hematocrit 37.4 % (37-53); Lymphocytes # 2.3 10^3/uL (0.8-4.8); Lymphocytes % 30.3 %; Mean Corpuscular HGB Conc 33.2 g/dL (30-55); Mean Corpuscular Hemoglobin 30.4 pg (27-33); Mean Corpuscular Volume 91.7 fl (82-101); Mean Platelet Volume 10.4 fL (7.4-10.4); Monocytes % 13.6 %; Neutrophils # 4.07 10^3/uL (1.8-7.7); Neutrophils % 53.4 %; Nucleated Red Blood Cells % 0 %; Platelet Count 232 10^3/cmm (157-399); Red Blood Count 4.08 10^6/uL (3.85-5.65); Red Cell Distribution Width 13.2 % (12.1-15.1); White Blood Count 7.63 10^3/uL (3.29-11.43)
--- NOTE | 2024-09-16 22:15 | ECG_ITS ---
[facility] Date: 2024-[facility]16 Pat Name: Ezekiel Romero Department: Room: Gender: Male Director Of Materials: : 1955 Requested By: Dharmesh Figueroa Order Number: [id number] Toi MD: Meaghan Mckeon M.D. Measurements Intervals [place] Rate: 77 P: 54 [place]: 173 QRS: -9 QRSD: 133 T: 80 QT: 409 QTc: 465 Interpretive Statements SINUS RHYTHM INTRAVENTRICULAR CONDUCTION DELAY [130+ ms QRS DURATION] SEPTAL MYOCARDIAL INFARCTION , OF INDETERMINATE AGE [40+ ms Q WAVE IN V1/V2] Compared to ECG 09/16/2024 19:22:48 Intraventricular conduction delay now present Myocardial infarct finding still present Electronically Signed On 09-18-2024 23:41:28 CDT by Meaghan Mckeon M.D. [email or web address]
[2024-09-16 22:49] LABS: Troponin 5 2HR 61.77 ng/L (0-15)
[2024-09-16 22:50] LABS: Troponin 5 2HR Delta -3.23 ABS# (0-10)
--- NOTE | 2024-09-16 23:14 | ED_ITS ---
HPI - Chest Pain 2 General: Chief Complaint: Chest Pain Stated Complaint: chest pain, stroke like symptoms Time Seen by Provider: 09/16/24 20:31 History of Present Illness: 69-year-old male presents with right-maye ed chest pain that began last night around 10:00 PM. Patient describes sharp, knife-like pain in the right chest that has persisted throughout the night. Pain is exacerbated by frustration and emotional stress. Associated symptoms include difficulty lifting the right arm today. Patient reports consuming homemade wine last night. Of note, patient admits to smoking methamphetamine yesterday. Patient denies any falls or trauma. Patient has history of previous strokes but is not currently on anticoagulation. He reports being out of his aspirin. Related Data Home Medications ?Medication ?Instructions ?Recorded ?Confirmed buprenorphine 10 mcg/hour weekly 10 mcg topical Q7D 08/15/24 transdermal patch glipizide 5 mg tablet 5 mg PO BID 07/02/24 5 losartan 100 mg tablet 100 mg PO DAILY 07/02/2408/06 meloxicam 15 mg tablet 15 mg PO DAILY 07/02/2408/06 metformin 500 mg tablet,extended 2,000 mg PO QAM 07/0208/15/24 release 24 hr cholecalciferol (vitamin D3) 250 250 mcg PO DAILY 07/1408/15/24 mcg (10,000 unit) capsule thiamine HCl (vitamin B1) 250 mg 250 mg PO DAILY 08/0608/15/24 tablet Previous Rx's ?Medication ?Instructions ?Recorded Diabetic Shoes #1 ea 05/30/24 Allergies Allergy/AdvReac Type Severity Reaction Status Date / Time No Known Allergies Allergy Verified 09/16/24 19:30 [facility] ED 2 PFSH: Medical History Peripheral neuropathy Loose body in knee Type 2 diabetes mellitus Hardware failure Social History Smoking and tobacco/nicotine status: current every day tobacco/nicotine user Physical Exam 2 Const: COMMON NORMALS: no acute distress, average body habitus, alert and well nourished GENERAL APPEARANCE: cooperative ORIENTATION/CONSCIOUSNESS: Yes awake HENMT: COMMON NORMALS: normocephalic and atraumatic HEAD & SCALP: n ormocephalic and atraumatic Eye: COMMON NORMALS: conjunctivae normal CONJUNCTIVA: Yes conjunctivae normal Neck/C-Spine: GENERAL: Yes normal visual inspection Resp: COMMON NORMALS: normal respiratory effort, No retractions and No use of accessory muscles Cardio: COMMON NORMALS: regular rhythm and Peripheral pulses 2+ throughout RHYTHM: regular rhythm PERIPHERAL PULSES: Peripheral pulses 2+ throughout GI: COMMON NORMALS: Soft to palpation and non-tender PALPATION: Yes Soft to palpation Extremity: COMMON NORMALS: full ROM and no pedal edema Neuro: COMMON NORMALS: no focal motor deficits SENSORIUM/ORIENTATION: Yes alert Skin: COMMON NORMALS: no rashes or lesions noted GENERAL SKIN EXAM: no rashes or lesions noted Course 2 Vital Signs: Vital signs: Vital Signs Temperature 97.9 F 09/16/24 19:14 Pulse Rate 78 09/16/24 23:30 Respiratory Rate 18 09/16/24 23:30 Blood Pressure 136/73 09/16/24 23:30 Pulse Oximetry 93 09/16/24 23:30 Oxygen Delivery Me thod Room Air 09/16/24 19:14 MDM - Chest Pain Medical Decision Making Review of Systems: Constitutional: Appears somewhat intoxicated with slurred speech Cardiovascular: Right-sided chest pain, sharp and persistent Neurological: Right arm weakness, no facial droop Musculoskeletal: Right knee pain (chronic) All other systems reviewed and negative Medications: 1. Metformin 2. Glipizide 3. Aspirin (currently out) Allergies: No known allergies Past Medical History: 1. Diabetes mellitus type 2 2. Previous strokes (multiple) 3. Chronic right knee pain Past Surgical History: None documented Social History: Current smoker Alcohol use: Drinks homemade wine Recreational drug use: Marijuana and occasional methamphetamine use (last use yesterday) No IV drug use Family History: None documented Vital Signs: No vital signs documented in risk management consultant Physical Exam: General: Patient appears intoxicated with slurred speech HEENT: Smile symmetric, no facial droop or asymmetry Cardiovascular: Significant reproducible tenderness to palpation along right anterior chest wall Musculoskeletal: Equal strength in all four extremities, pain with range of motion in right lower extremity Neurological: No pronator drift, extraocular movements intact and full, no focal weakness Lab Results: Pending Imaging and Other Relevant Results: Chest X-ray ordered Medical Decision Making: Summary Statement: 69-year-old male with multiple risk factors presents with right-sided chest pain and reported weakness, recent methamphetamine use, and history of previous strokes. Problem List: 1. Right-sided chest pain 2. Right arm weakness 3. Substance use 4. History of stroke Differential Diagnosis: 1. Musculoskeletal chest pain 2. Acute coronary syndrome 3. Acute stroke 4. Methamphetamine-induced symptoms 5. Costochondritis ED Course: Patient evaluated for both cardiac and neurological symptoms. Physical exam suggests musculoskeletal etiology. Basic labs and chest X-ray ordered. Stroke symptoms appear less likely given normal strength and reproducible chest wall tenderness. Assessment and Plan: 1. Right-sided chest pain - Likely musculoskeletal in nature given reproducible tenderness - Await chest X-ray results to rule out other pathology - Plan for symptomatic treatment if workup negative 2. Right arm weakness - Appears related to musculoskeletal pain rather than neurological deficit - No evidence of acute stroke on examination 3. Substance use - Ceiling Cleaner on risks of methamphetamine use - Provide resources for substance abuse treatment 4. Preventive care - Restart aspirin given history of stroke Patient's laboratory workup is overall unremarkable. His troponin was mildly elevated but stable with a delta troponin of -3. Chest x-ray does not show any acute processes. Head CT does not show any acute intracranial findings. He does have mild chronic ischemic changes noted. EKG is sinus rhythm without any ischemic ST elevation or depressions. He does have a intraventricular delay noted. Rate of 77 bpm. Normal axis. CBC and CMP are unremarkable. His alcohol is negative/0. Patient does have notable dysarthria and slurring on exam and after further discussion with the patient he states that this did start last night at the same time that all of his other symptoms started. Given this dysarthria and slurred speech with normal alcohol and reported right arm weakness since last night feel that an MRI of the brain is reasonable. Unfortunately I am unable to get an MRI at this hour of the night and patient will require admission for observation for MRI in the morning. I spoke with Dr. Hodge with the hospitalist who has accepted. Lab Data I reviewed the patient's lab results. 09/16/24 20:25 09/16/24 20:25 Radiology Impressions Chest X-Ray 09/16/24 20:15 IMPRESSION: No acute findings. Head CT 09/16/24 20:16 IMPRESSION: 1. No acute findings. 2. Mild chronic ischemic changes noted Laboratory Results WBC 7.63 10^3/uL (3.29-11.43) 09/16/24 20:25 RBC 4.08 10^6/uL (3.85-5.65) 09/16/24 20:25 Hgb 12.40 g/dL (11.27-16.99) 09/16/24 20:25 Hct 37.4 % (37-53) 09/16/24 20:25 MCV 91.7 fl (82-101) 09/16/24 20:25 MCH 30.4 pg (27-33) 09/16/24 20:25 MCHC 33.2 g/dL (30-55) 09/16/24 20:25 RDW 13.2 % (12.1-15.1) 09/16/24:25 Plt Count 232 10^3/cmm (157-399) 09/16/24 20:25 MPV 10.4 fL (7.4-10.4) 09/16/24 20:25 Neut % (Auto) 53.4 % 09/16/24 20:25 Lymph % (Auto) 30.3 % 09/16/24 20:25 [place] % (Auto) 13.6 % 09/16/24 20:25 Eos % (Auto) 2.1 % 09/16/24 20:25 Baso % (Auto) 0.5 % 09/16/24 20:25 Neut # (Auto) 4.07 10^3/uL (1.8-7.7) 09/16/24 20:25 Lymph # (Auto) 2.3 10^3/uL (0.8-4.8) 09/16/24 20:25 [place] # (Auto) 1.0 10^3/uL (0.2-0.9) H 09/16/24 20:25 Eos # (Auto) 0.2 10^3/uL (0.0-0.8) 09/16/24 20:25 Baso # (Auto) 0.0 10^3/uL (0.0-0.1) 09/16/24 20:25 Nucleated RBC % (auto) 0 % 09/16/24 20:25 Nucleated RBCs # 0.0 /100WBC 09/16/24 20:25 Sodium 138 mmol/L (136-145) 09/16/24 20:25 Potassium 3.8 mmol/L (3.5-5.1) 09/16/24 20:25 Chloride 100 mmol/L (98-107) 09/16/24 20:25 Carbon Dioxide 29 mmol/L (22-29) 09/16/24 20:25 Anion Gap 12.8 (5-19) 09/16/24 20:25 BUN 19 mg/dL (8-23) 09/16/24 20:25 Creatinine 0.7 mg/dL (0.7-1.2) 09/16/24 20:25 GFR Calculation 111.8 mL/min (90-130) 09/16/24 20:25 Glucose 149 mg/dL (65-115) H 09/16/24 20:25 Calculated Osmolality 291 mOsm/kg (285-295) 09/16/24 20:25 Calcium 9.6 mg/dL (8.5-10.5) 09/16/24 20:25 Total Bilirubin 2.3 mg/dL (0.15-1.2) H 09/16/24 20:25 AST 26 U/L (0-40) 09/16/24 20:25 ALT 24 U/L (0-41) 09/16/24 20:25 Alkaline Phosphatase 83 U/L (40-130) 09/16/24 20:25 Troponin T Baseline 65 ng/L (0-15) H 09/16/24 20:25 Troponin T 120 Minute 61.77 ng/L (0-15) H 09/16/24 22:15 Delta Troponin T -3.23 ABS# (0-10) L 09/16/24 22:15 Total Protein 6.0 g/dL (6.6-8.7) L 09/16/24 20:25 Albumin 3.9 g/dL (3.5-5.2) 09/16/24 20:25 Globulin 2.1 g/dL (1.3-4.6) 09/16/24 20:25 Ethyl Alcohol < 10 mg/dL (0-10) 09/16/24 20:25 All radiology interpretation(s) finalized by discharge Discharge Plan Discharge Patient Disposition: Placed in Observation Clinical Impression: Dysarthria, Right arm weakness, Acute chest wall pain, Methamphetamine use, Elevated troponin Coding Level of Care Code ED Charge Account Clerk for Ramone Alicea
[2024-09-17] VITALS (14 sets, daily range): BP systolic 106–156; BP diastolic 60–78; PULSE 69–75; RESP 14–18; TEMP 36.6–36.9; O2SAT 93–97; BMI 24.3
--- NOTE | 2024-09-17 01:04 | PM.HP ---
Providers/Chief Complaint Admitting Physician: Pietro Hodge MD Primary Care Provider: Mane Carmona DO Chief Complaint: chest pain, stroke like symptoms History of Present Illness Ezekiel Romero is a 69 year old male with chest pain and dysarthria presented in the emergency department. His chest pain is right-sided musculoskeletal his troponin mildly elevated trended downward but he has had dysarthria and he states his tongue is not working. In addition to this he has hoarseness to his throat. His friend Porsha present at bedside says that he usually speaks more clearly and this is a change. Patient was down at the grocery store and grain manager noted that he could not walk and was leaning against the doorway seemingly in pain and off of balance. Family and friends came down and drove his car home. Patient refused to go by ambulance. Eventually at home he was talked into being driven in by Porsha who is a SUPERVISOR LINE DEPARTMENT at a local nursing Review of Systems Narrative: General Patient reports 40 pound weight loss from 42 inch waist down to 32 inch in a couple of years. Denies fevers but has had some chills Neuro patient states his tongue is not working right is having trouble enunciating he is also drowsy and feels like he is tired. He states that he has had some right arm weakness last night and this morning. He has had trouble with his balance but also is in need of right knee surgery for a pin that is from the that has broken Cardiovascular positive for chest pain with movement lifting on the right side and also deep breaths Respiratory no cough or wheezing GI no nausea vomiting diarrhea constipation Neuro patient denies history of seizures he has had imaging that shows microvascular ischemic changes Medications/Allergies Home Medications ?Medication ?Instructions ?Recorded ?Confirmed ?Last Taken ?Type Diabetic Shoes #1 ea 05/30/24 08/06/24 Unknown Rx buprenorphine 10 mcg/hour weekly 10 mcg topical Q7D 07/02/24 08/15/24 06/30/24 History transdermal patch glipizide 5 mg tablet 5 mg PO BID 07/02/24 08/15/24 08/15/24 History losartan 100 mg tablet 100 mg PO DAILY 07/02/24 08/15/24 08/15/24 History meloxicam 15 mg tablet 15 mg PO DAILY 07/02/24 08/15/24 08/15/24 History metformin 500 mg tablet,extended 2,000 mg PO QAM 07/02/24 08/15/24 08/15/24 History release 24 hr cholecalciferol (vitamin D3) 250 250 mcg PO DAILY 08/06/24 08/15/24 08/15/24 History mcg (10,000 unit) capsule thiamine HCl (vitamin B1) 250 mg 250 mg PO DAILY 08/06/24 08/15/24 08/15/24 History tablet Allergies Allergy/AdvReac Type Severity Reaction Status Date / Time No Known Allergies Allergy Verified 09/16/24 19:30 PFSH Acute PFSH: Medical History Peripheral neuropathy Loose body in knee Type 2 diabetes mellitus Hardware failure Social History (Updated 09/17/24 @ 01:11 by Pietro Hodge MD) Smoking and tobacco/nicotine status: current every day tobacco/nicotine user cigarettes Number of cigarettes per day: 1-5 Quit status (tobacco/nicotine): considering quitting Alcohol intake: current Alcohol intake frequency: few times a week Alcohol type: beer, wine and hard liquor Substance/Drug Use: current Substance/Drug use type: Amphetamines Other substance/drug use details: Last night and he states last before that was 3 months Additional social history: Wants full CODE STATUS as discussed today 09/17/2024 Vitals/I&O/Wt Last Vital Signs Temp 97.9 F 09/16/24 19:14 Pulse 75 09/17/24 00:30 Resp 14 09/17/24 00:30 BP 114/60 09/17/24 00:30 Pulse Ox 96 09/17/24 00:30 O2 Del Method Room Air 09/16/24 19:14 Weight last 48 hrs Weight 82.554 kg Physical Exam Narrative: General Well-developed well-nourished male with odd affect. Neuro patient closes his eyes sometimes his eyes seem to roll back a little and he is intermittently somnolent. External ocular movements intact pupils equally round and reactive to light accommodation face is symmetric dentures and smile symmetric handgrips left 5/5 right 5-/5 legs poor effort on ankle flexion and extension he states he cannot do it on the right due to knee pain CV regular rate and rhythm Lungs clear to auscultation but some cough. Septated Calves no tenderness pretibial edema Oropharynx clear he has dentures he has hoarse voice there are some dysarthria and he is deliberate and trying to pronounce his words. When just speaking regularly he is difficult to understand speech a little slurred Carotid upstrokes strong with no bruits heard Data 09/16/24 20:25 09/16/24 20:25 A&P Assessment and plan (1) Dysarthria: Patient seems tired and somnolent but he reports, I can appreciate and his friend reports that his speech is slurred. CT head was negative. MRI has been ordered by the ER physician Dr. Vilchis. Anticipate this in the morning patient has received aspirin (2) Right arm weakness: As above cannot exclude stroke (3) Acute chest wall pain: Reproducible on exam. Continue with Tylenol, meloxicam and patient's buprenorphine (4) Methamphetamine use: Patient states he used meth about half an inch line yesterday (5) Elevated troponin: Repeat in the morning (6) Type 2 diabetes mellitus: Start sliding scale insulin and carb controlled diet PDMP PDMP Reviewed: Not Reviewed Attestations Medical Necessity Statement*: Patient placed in hospital for observation for MRI in the morning Coding Level of Care Code 43851 Diagnoses Dysarthria R47.1 Right arm weakness R29.898 Acute chest wall pain R07.89 Methamphetamine use F15.10 Elevated troponin R79.89 Type 2 diabetes mellitus E11.9 Time Spent (min) 55
[2024-09-17] MEDS: sodium chlor 0.9% + KCl 20 mEq 20 MEQ/1,000 ML BAG 100 MEQ IV ×2 (02:06→15:10)
--- NOTE | 2024-09-17 02:15 | ECG_ITS ---
[facility] Test Date: 2024-09-17 Pat Name: Ezekiel Romero Department: Room: ED Gender: Male Lath Hand: : 1955 Requested By: Dharmesh Figueroa Order Number: [id number] Toi MD: Meaghan Mckeon M.D. Measurements Intervals [place] Rate: 72 P: 57 PA: 184 QRS: -16 QRSD: 132 T: 69 QT: 415 QTc: 456 Interpretive Statements SINUS RHYTHM INTRAVENTRICULAR CONDUCTION DELAY [130+ ms QRS DURATION] SEPTAL MYOCARDIAL INFARCTION , OF INDETERMINATE AGE [40+ ms Q WAVE IN V1/V2] Compared to ECG 09/16/2024 21:59:58 No significant changes Electronically Signed On 09-18-2024 23:41:01 CDT by Meaghan Mckeon M.D. [email or web address]
[2024-09-17 02:52] LABS: Troponin 5 6HR 54.84 ng/L (0-15)
[2024-09-17 02:53] LABS: Troponin 5 6HR Delta -10.16 ng/L (0-12)
[2024-09-17] MEDS: enoxaparin 40 mg/0.4 mL Syringe SUBCUT (05:05)
[2024-09-17 06:06] LABS: Glucose Point of Care 128 mg/dL (70-110)
--- NOTE | 2024-09-17 08:43 | USCV_ITS ---
Ezekiel Romero Age: 69 Gender: M : 1955 Exam Date: 09/17/2024 09:21 Ordering Phys: Kin Pa MD Technologist: [place] [facility] [place] Indication: cva BP: 138 / 75 HR: 68 Rhythm: Sinus Technical Quality: Adequate MEASUREMENTS (Male / Female) Normal Values 2D ECHO LV Diastolic Diameter PLAX 4.6 cm 4.2 - 5.9 / 3.9 - 5.3 cm IVS Diastolic Thickness 1.0 cm 0.6 - 1.0 / 0.6 - 0.9 cm IVS Systolic Thickness 1.6 cm LVPW Diastolic Thickness 1.3 cm 0.6 - 1.0 / 0.6 - 0.9 cm LVPW Systolic Thickness 1.7 cm LVOT Diameter 2.0 cm LV Ejection Fraction 2D Teich 66.0 % LA Diameter 3.3 cm Aorta at Sinotubular Diameter 2.8 cm M-MODE LA Ao Ratio MM 1.3 AV Cusp Separation MM 2.1 cm DOPPLER AV Peak Velocity 124.0 cm/s LVOT Peak Velocity 66.0 cm/s AV Area Cont Eq vti 2.3 cm squared AV Area Cont Eq pk 1.7 cm squared MV Peak Velocity 75.0 cm/s MV Area PHT 4.0 cm squared Mitral E to A Ratio 0.9 TR Peak Velocity 192.0 cm/s TR Peak Gradient 14.7 mmHg TV Peak E Velocity 64.0 cm/s PV Peak Velocity 98.0 cm/s FINDINGS Left Ventricle Normal left ventricular size and systolic function, EF 66%.mild left ventricular hypertrophy. No regional wall motion abnormalities. Grade I/IV diastolic dysfunction (abnormal relaxation filling pattern), normal to mildly elevated filling pressures. Right Ventricle The right ventricle is normal in size and function. Right Atrium The right atrium is normal in size. Left Atrium The left atrium is normal in size. Mitral Valve Thickened mitral valve. Aortic Valve No gross abnormalities noted Tricuspid Valve Trace tricuspid valve regurgitation. Pulmonic Valve Pulmonic valve not well visualized. Pericardium Normal pericardium without effusion. Aorta Normal aortic annulus size. IVC Inferior vena cava not visualized. CONCLUSIONS Normal left ventricular size and systolic function, EF 66%.mild left ventricular hypertrophy. No regional wall motion abnormalities. Grade I/IV diastolic dysfunction (abnormal relaxation filling pattern), normal to mildly elevated filling pressures. Thickened mitral valve. Trace tricuspid valve regurgitation. Saline contrast njection revealed no evidence of any right-to- left shunt Dr Meaghan Mckeon MD FACC (Electronically Signed) Final Date: 17 Sep 2024 16:42 S
[2024-09-17] MEDS: losartan 50 mg Tablet 100 MG PO (08:46)
[2024-09-17] MEDS: insulin lispro 100 unit/1 mL SUBCUT ×4 (08:47→21:14)
[2024-09-17 08:58] LABS: Glucose Point of Care 148 mg/dL (70-110)
[2024-09-17 09:05] LABS: Chol HDL Ratio 1.76 mg/dL (1.0-5.00); Cholesterol 86 mg/dL (0-200); HDL Cholesterol 49 mg/dL (60-100); LDL Cholesterol Calculated 27 mg/dL (50-129); LDL HDL Ratio 0.55 RATIO (0.00-3.22); Triglycerides 52 mg/dL (0-150)
[2024-09-17 13:14] LABS: Glucose Point of Care 175 mg/dL (70-110)
[2024-09-17] MEDS: clopidogrel 75 mg Tablet PO (15:09)
--- NOTE | 2024-09-17 15:15 | P.PN_ITS ---
Subjective 2 Subjective: Patient was seen this morning, he is alert to person, to place, not to time, he does have word finding difficulty does have word salad, no choking complaints, no coughing complaints, reports right upper extremity weakness and paresthesias, strength is 2 out of 5, has trouble coordinating, he tells me that he has had some sort of right knee hardware failure, and he does not move his right leg that well, he ambulates with a walker, and a cane, but he tells me that his right lower extremity weakness is chronic, he does have good plantar flexion and extension Vitals/I&O/Wt Last Vital Signs Temp 98.2 F 09/17/24 04:00 Pulse 69 09/17/24 14:00 Resp 17 09/17/24 12:00 BP 142/75 09/17/24 13:20 Pulse Ox 97 09/17/24 13:20 O2 Del Method Room Air 09/17/24 13:20 09/17/24 09/17/24 09/17/24 06:59 14:59 22:59 Intake Total 1000 / 1000 Output Total 475 / 475 1000 / 1000 Balance -475 / -475 0 / 0 Weight last 48 hrs Weight 83.546 kg Weight 82.554 kg Physical Exam 2 Const: COMMON NORMALS: no acute distress ORIENTATION/CONSCIOUSNESS: Yes awake and Yes oriented to person; not oriented to place and not oriented to time HENMT: OTHER: Dysarthria, word finding difficulty Eye: COMMON NORMALS: Equal, round and reactive pupils present and EOMs intact bilaterally PUPIL: Yes Equal, round and reactive pupils present Lymph: LYMPHATIC: no lymphadenopathy noted Resp: COMMON NORMALS: normal respiratory effort, No retractions, No use of accessory muscles and clear to auscultation bilaterally AUSCULTATION: clear to auscultation bilaterally Cardio: COMMON NORMALS: regular rate, regular rhythm, S1 normal heart sound present and S2 normal heart sound present RATE: regular rate RHYTHM: r egular rhythm HEART SOUNDS: S1 normal heart sound present and S2 normal heart sound present GI: COMMON NORMALS: Normal to inspection, nondistended, normoactive bowel sounds present and non-tender Extremity: COMMON NORMALS: no pedal edema Neuro: SENSORIUM/ORIENTATION: Yes oriented to person, No oriented to place and No oriented to time OTHER: Right hand clumsiness, strength, 2 out of 5, [id number] abnormal, Right lower extremity strength difficult to assess as patient has had right knee hardware failure, but has good dorsal and plantar flexion, Data 09/16/24 20:25 09/16/24 20:25 A&P Assessment and plan (1) Acute CVA (cerebrovascular accident): (2) Elevated troponin: (3) Methamphetamine use: (4) Type 2 diabetes mellitus: (5) Right knee DJD: (6) Right arm weakness: (7) Dysarthria: (8) COPD (chronic obstructive pulmonary disease): Plan Acute CVA - Timeframe is not exactly clear, but greater than 24 hours - Word finding difficulty, word salad, right arm weakness, possibly right lower extremity weakness but difficult to assess given his right knee hardware failure, does report numbness of right arm, ataxia right arm, - NIH stroke scale is 7 - Out of tPA window CT/CT head wo con* [id number] IMPRESSION: 1. No acute findings. 2. Mild chronic ischemic changes noted MR/MR head wo con* [id number] IMPRESSION: 1. Normal diffusion imaging. No acute infarct. 2. Mild symmetric cerebral, cerebellar and hippocampal atrophy. 3. Mild small vessel ischemic changes, bilateral supratentorial white matter. 4. Bilateral small vessel ischemic changes in the linda. Plan - PT OT, speech therapy eval - Dysphagia level 4 diet, extremely thickened - CT head and neck - A1c 7.7 - Lipid profile, LDL 27 cholesterol 86, HDL 49 - Cardiac echo bubble study - Telemetry monitoring - Allow for permissive hypertension - Treat if systolic greater than 228, diastolic greater than 120 - Aspirin, statin, Plavix - Full code - Lovenox for DVT prophylaxis NSTEMI - Serial EKGs, surgical ones, telemetry monitoring -No active chest pain - Aspirin, statin, Plavix - Cardiac echo History of methamphetamine abuse PDMP PDMP Reviewed: Not Reviewed Attestations 2 Medical Necessity Statement*: Patient requires hospitalization, for acute CVA, elevated troponins Diagnoses Acute CVA (cerebrovascular accident) I63.9 Elevated troponin R79.89 Methamphetamine use F15.10 Type 2 diabetes mellitus E11.9 Right knee DJD M17.11 Right arm weakness R29.898 Dysarthria R47.1 COPD (chronic obstructive pulmonary disease) J44.9
[2024-09-17 16:32] LABS: Glucose Point of Care 164 mg/dL (70-110)
--- NOTE | 2024-09-17 16:41 | CTR_ITS ---
PROCEDURE INFORMATION: Exam: CTA Head With Contrast, Arteriography Exam date and time: 09/17/2024 4:57 PM Age: 69 years old Clinical indication: Speech disturbance and weakness; Slurred speech; Additional info: CVA TECHNIQUE: Imaging protocol: Computed tomographic angiography of the head with contrast. Exam focused on the arteries. 3D rendering (Not supervised by radiologist): MIP and/or 3D reconstructed images were created by the technologist. Radiation optimization: All CT scans at this facility use at least one of these dose optimization techniques: automated exposure control; mA and/or kV adjustment per patient size (includes targeted exams where dose is matched to clinical indication); or iterative reconstruction. Contrast material: OMNIPAQUE 350; Contrast volume: 100 ml; Contrast route: INTRAVENOUS (IV); COMPARISON: MR head wo con* [id number] 09/17/2024 7:21 AM RADIATION DOSE METRICS: Total DLP (mGy-cm): 1257.9 FINDINGS: ANTERIOR CIRCULATION: Right internal carotid artery: Patent. Right middle cerebral artery: Patent. Right anterior cerebral artery: Patent. Left internal carotid artery: Patent. Left middle cerebral artery: Patent. Left anterior cerebral artery: Patent. POSTERIOR CIRCULATION: Right vertebral artery: Patent. Left vertebral artery: Patent. Basilar artery: Patent. Right posterior cerebral artery: Patent. Left posterior cerebral artery: Patent. Brain: No evidence of intracranial hemorrhage. No evidence of mass effect or midline shift. Stewart-white differentiation is grossly maintained. Faint hypodensity measuring 9 mm in the right basal ganglia, slightly more prominent than on exam from 1 day prior (image 25 of series 4). Basilar cisterns are patent. Cerebral ventricles: No hydrocephalus. Bones/joints: The calvarium is intact. Craniocervical junction is intact. Soft tissues: No gross soft tissue abnormality. PROCEDURE INFORMATION: Exam: CTA Neck With Contrast Exam date and time: 09/17/2024 4:57 PM Age: 69 years old Clinical indication: Speech disturbance and weakness; Slurred speech; Additional info: CVA TECHNIQUE: Imaging protocol: Computed tomographic angiography of the neck with contrast. Exam focused on the cervical segments of the vasculature. 3D rendering (Not supervised by radiologist): MIP and/or 3D reconstructed images were created by the technologist. Radiation optimization: All CT scans at this facility use at least one of these dose optimization techniques: automated exposure control; mA and/or kV adjustment per patient size (includes targeted exams where dose is matched to clinical indication); or iterative reconstruction. Contrast material: OMNIPAQUE 350; Contrast volume: 100 ml; Contrast route: INTRAVENOUS (IV); COMPARISON: CT angio chest PE protcl [id number] 07/02/2024 5:46 PM RADIATION DOSE METRICS: Total DLP (mGy-cm): 1257.9 FINDINGS: Right common carotid artery: Patent. No evidence of hemodynamically significant stenosis. Right internal carotid artery: Patent. Mild approximately 20% narrowing of the proximal right ICA secondary to mixed atherosclerotic plaque. Right external carotid artery: Patent. Left common carotid artery: Patent. No evidence of hemodynamically significant stenosis. Left internal carotid artery: Patent. Mixed atherosclerotic plaque without evidence of hemodynamically significant stenosis. Left external carotid artery: Patent. Right vertebral artery: Patent. Left vertebral artery: Moderate-severe narrowing of the proximal left vertebral artery near its origin secondary to noncalcified atherosclerotic plaque (for example, images 59-65 of series 8). Soft tissues: No evidence of fluid collection or hematoma. Bones/joints: No evidence of acute fracture or subluxation of the cervical spine. C5-C6 ACDF. Moderate-severe multilevel uncovertebral hypertrophy and facet arthrosis. 2 mm degenerative anterolisthesis of C7 on T1. There is ankylosis of the right C2 through C4 facets. Severe foraminal stenosis on the right at C4-C5. Other: Fibronodularity in the right lung apex. Additional nodularity versus scarring in the peripheral right middle lobe. CT/CT angio headneck* [id number] IMPRESSION: 1. No evidence of large vessel occlusion or acute thrombosis in the head. 2. Age-indeterminate right basal ganglia lacunar infarct, slightly more prominent than on exam from 1 day prior. Consider correlation with MRI. IMPRESSION: 1. No evidence of acute thrombosis in the neck. 2. Moderate-severe narrowing of the origin of the left vertebral artery secondary to noncalcified atherosclerotic plaque. Follow-up vascular evaluation is recommended. 3. Severe foraminal stenosis on the right at C4-C5. Consider correlation with follow-up outpatient MRI to evaluate for neural impingement. 4. Nodularity/scarring in the right middle lobe. Consider follow-up outpatient pulmonary clinic evaluation and dedicated CT of the chest. REFERENCES: NASCET CRITERIA. The degree of stenosis in the cervical segment of the internal carotid artery is based on NASCET criteria. Normal is no stenosis. Mild is less than 50% stenosis. Moderate is 50-69% stenosis. Severe is 70% to 99% stenosis. Total occlusion is no detectable patent lumen.
[2024-09-17] MEDS: iohexol 350 mg/mL 500 mL Btl (per mL) IV (17:09)
--- NOTE | 2024-09-17 17:36 | P.CONIM_ITS ---
Providers/Reason For Consult 2 Consulting Physician/Specialty*: Ho Go MD neurology and epilepsy Reason for Consult*: Stroke Attending Physician: Kin Pa MD Primary Care Provider: Mane Carmona DO History of Present Illness History of Present Illness Ezekiel Romero is a 69 year old male with a history of chronic obstructive pulmonary disease, methamphetamine use, type 2 diabetes mellitus, and right knee surgery with hardware failure with chronic right knee pain. The patient stated that on 09/16/2024 around 10 PM he experienced severe chest pain with radiation to both arms. The patient stated that the pain was a sharp knifelike stabbing pain. The patient stated that the pain eased up finally but reoccurred with radiation to the right arm associated with right arm numbness associated with right upper extremity weakness and right facial numbness, and facial numbness with slurred speech. Patient reported consuming homemade wine on the night of 09/16/2024. Of note, the patient admited to smoking methamphetamine on 09/16/2024. Patient denies any falls or trauma. Patient has history of previous strokes but is not currently on anticoagulation. He reports being out of his aspirin. On 09/17/2024 the patient reported that he is feeling better but has continued to experience slurred speech, right facial numbness, right upper extremity numbness and weakness in his right hand and arm. The patient denied any chest pain at the time of this neurological assessment on 09/17/2024. NIH stroke score = 4 (flattening of right nasolabial fold =1, right arm weakness =1, decreased sensation right face in a V1 and V2 distribution and right upper extremity =1, dysarthria =1). Point of contact glucose Accu-Chek 09/17/2024 = 164 Serum glucose 09/16/[address] scan 09/17/2024 unremarkable for any acute findings. CT angiogram head and neck 09/17/2024 results pending at the time of this dictation Head MRI 09/17/2024: IMPRESSION: 1. Normal diffusion imaging. No acute infarct. 2. Mild symmetric cerebral, cerebellar and hippocampal atrophy. 3. Mild small vessel ischemic changes, bilateral supratentorial white matter. 4. Bilateral small vessel ischemic changes in the linda. Drug allergies: None Current medications: Albuterol sulfate 1 puff every 6 hours as needed for shortness of breath Lipitor 40 mg p.o. daily Buprenorphine 1 patch topical every 7 days Glipizide 5 mg p.o. twice daily Losartan 100 mg p.o. daily Metformin 2000 mg p.o. daily Past medical history: Methamphetamine use Elevated troponin level Acute chest pain Chronic obstructive pulmonary disease Degenerative joint disease right knee Status post right knee surgery with failed hardware Type 2 diabetes mellitus Habits: Current smoker Alcohol use: Drinks homemade wine Recreational drug use: Marijuana and occasional methamphetamine use (last use yesterday) No IV drug use Family history: Remarkable for sister with stage IV cancer (type unknown by the patient) Review of Systems 2 General: Reports: 10 or more systems reviewed and unremarkable except in HPI and below Medications/Allergies Home Medications ?Medication ?Instructions ?Recorded ?Confirmed ?Last Taken ?Type Diabetic Shoes #1 ea 05/30/24 09/17/24 Unkn own Rx glipizide 5 mg tablet 5 mg PO BID 07/02/24 5 09/16/24 History losartan 100 mg tablet 100 mg PO DAILY 07/02/2411/0609/16/24 History metformin 500 mg tablet,extended 2,000 mg PO QAM 07/0209/17/24 09/16/24 History release 24 hr albuterol sulfate 90 mcg/actuation 1 puff inhalation Q 6H PRN 09/17/24 09/17/24 Unknown History aerosol inhaler Shortness Of Breath Or Wheez ing atorvastatin 40 mg tablet 40 mg PO DAILY 09/17/24 05/0 11/0609/16/24 History buprenorphine 15 mcg/hour weekly 1 patch topical Q7D 0 09/17/24 09/17/24 Unknown History transdermal patch Allergies Allergy/AdvReac Type Severity Reaction Status Date / Time No Known Allergies Allergy Verified 09/17/24 07:37 Current Medications Generic Name Dose Route Start Last Admin Trade Name Freq PRN Reason Stop Dose Admin Clopidogrel Bisulfate 75 mg 09/17/24 13:55 09/17/24 15:09 Clopidogrel 75 Mg Tablet PO 75 mg DAILY RAMÍREZ Administration Enoxaparin Sodium 40 mg 09/17/24 06:00 09/17/24 05:05 Enoxaparin 40 Mg/0.4 Ml Syringe SUBCUT 40 mg Q24H RAMÍREZ Administration Potassium Chloride/Sodium Chloride 20 meq in 1,000 mls @ 100 mls/hr 09/17/24 01:20 09/17/24 15:10 Sodium Chlor 0.9% + Kcl 20 Meq IV 100 mls/hr .Q10H RAMÍREZ Administration Insulin Human Lispro 0 unit 09/17/24 08:00 09/17/24 16:34 Insulin Lispro 100 Unit/1 Ml SUBCUT 2 unit WM&BEDTIME RAMÍREZ Administration Protocol PFSH Acute 2 PFSH: Medical History Peripheral neuropathy Loose body in knee Type 2 diabetes mellitus Hardware failure Social History Smoking and tobacco/nicotine status: current every day tobacco/nicotine user cigarettes Quit status (tobacco/nicotine): considering quitting Alcohol intake: current Alcohol intake frequency: few times a week Alcohol type: beer, wine and hard liquor Substance/Drug Use: current Other substance/drug use details: Last night and he states last before that was 3 months Additional social history: Wants full CODE STATUS as discussed today 09/17/2024 Vitals/I&O/Wt Last Vital Signs Temp 98.0 F 09/17/24 16:00 Pulse 71 09/17/24 16:00 Resp 16 09/17/24 16:00 BP 119/64 09/17/24 16:00 Pulse Ox 94 09/17/24 16:00 O2 Del Method Room Air 09/17/24 13:20 09/17/24 09/17/24 09/17/24 06:59 14:59 22:59 Intake Total 1000 / 1000 Output Total 475 / 475 1000 / 1000 Balance -475 / -475 0 / 0 Weight last 48 hrs Weight 184 lb 3 oz Weight 182 lb Physical Exam 2 Narrative: NIH stroke score = 4 (flattening of right nasolabial fold =1, right arm weakness =1, decreased sensation right face in a V1 and V2 distribution and right upper extremity =1, dysarthria =1). The patient is alert and oriented to person place and situation. Head atraumatic. Neck supple. Cranial nerves II through XII reveals some mild flattening of the right nasolabial fold. And decreased sensation in a V2-V3 distribution over the right face. Pupils 3 to 4 mm round reactive to light and accommodation. Extraocular movements intact. Visual mitchell appear to be full via confrontation. 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 Other motor testing 09/16. Note: Patient reports chronic right knee issues and right knee pain and numbness around his knee on the right secondary to surgery. Plantar responses flexor bilaterally. Sensory examination revealed decreased sensation in the right upper extremity compared to the left. Throat clear. Lungs clear. Heart regular rhythm and rate. Extremities were negative for cyanosis. Point of contact glucose Accu-Chek 09/17/2024 = 164 Serum glucose 09/16/[address] scan 09/17/2024 unremarkable for any acute findings. CT angiogram head and neck 09/17/2024 results pending at the time of this dictation Head MRI 09/17/2024: IMPRESSION: 1. Normal diffusion imaging. No acute i nfarct. 2. Mild symmetric cerebral, cerebellar and hippocampal atrophy. 3. Mild small vessel ischemic changes, bilateral supratentorial white matter. 4. Bilateral small vessel ischemic guido ges in the linda. Data 09/16/24 20:25 09/16/24 20:25 A&P Assessment and plan (1) Acute CVA (cerebrovascular accident): Impression: 1. Clinical examination suggestive of left subcortical versus cortical infarct 09/16/2024. Note: Since the patient did not seek immediate medical attention, the patient was not a candidate for intravenous thrombolytics and no intravenous thrombolytics were administered. 2. Chest pain 3. History of methamphetamine use 4. History of alcohol use 5. Type 2 diabetes mellitus Plan: 1. Agree with obtaining CT angiogram of the head and neck to assess for large vessel occlusion 2. Recommend starting Aspirin 325 mg p.o. every morning with food per NIH stroke protocol if no contraindication 3. Agree with lipid-lowering agent per NIH stroke protocol 4. Recommend starting thiamine 100 mg p.o. daily since patient has history of alcohol use to minimize potential for Wernicke's Korsakoff syndrome 5. Agree with occupational therapy, physical therapy and speech therapy consult 6. Fall precautions 7. Agree with evaluation for chest pain to rule out cardiac causes for stroke 8. Recommend cardiac telemetry monitoring to assess for arrhythmia 9. Stroke education and stroke pamphlet to be given to patient PDMP PDMP Reviewed: Not Reviewed Consult Attestations 2 Medical Necessity Statement: The patient was evaluated by neurology for clinical findings suggestive of stroke Coding Level of Care Code 77084 Diagnoses Acute CVA (cerebrovascular accident) I63.9
[2024-09-17 18:36] LABS: Amphetamines Screen Urine Positive (Negative); Barbiturates Screen Urine Negative (Negative); Benzodiazepines Screen Urine Negative (Negative); Cocaine Screen Urine Negative (Negative); Opiate Screen Urine Negative (Negative); PCP Screen Urine Negative (Negative); THC Screen Urine Positive (Negative)
[2024-09-17 20:40] LABS: Glucose Point of Care 168 mg/dL (70-110)
--- NOTE | 2024-09-17 22:48 | MR_ITS ---
WS: [id number] MRI BRAIN WITHOUT CONTRAST HISTORY: dysarthria, hx of meth, right arm weakness COMPARISON: CT head 09/16/2024 TECHNIQUE: Diffusion imaging, multiplanar T1, T2 and FLAIR imaging obtained. No evidence for acute infarct or hemorrhage. Stewart-white matter differentiation is normal. Mild symmetric atrophy with no prior large territory infarct. Moderate small vessel changes surrounding the ventricles. No prior lacunar infarct. Mild bilateral hippocampal atrophy. Ventricles and extra-axial spaces are normal. No intra displacement of cerebellar tonsils. Mild cerebellar atrophy. Bilateral remote ischemic changes in the linda. Dural venous sinuses and [place] of [place] demonstrate no abnormality on this unenhanced studies. Paranasal sinuses: Clear. Mastoid air cells: Normal. Calvarium and scalp: Intact. MR/MR head wo con* [id number] IMPRESSION: 1. Normal diffusion imaging. No acute infarct. 2. Mild symmetric cerebral, cerebellar and hippocampal atrophy. 3. Mild small vessel ischemic changes, bilateral supratentorial white matter. 4. Bilateral small vessel ischemic changes in the linda.
[2024-09-18 04:00] VITALS: BP 122/68; PULSE 71; RESP 16; TEMP 36.7; O2SAT 94
[2024-09-18] MEDS: sodium chlor 0.9% + KCl 20 mEq 20 MEQ/1,000 ML BAG 100 MEQ IV (04:16)
[2024-09-18 05:33] LABS: Basophils # 0.1 10^3/uL (0.0-0.1); Basophils % 0.8 %; Eosinophils # 0.2 10^3/uL (0.0-0.8); Eosinophils % 3.2 %; Hematocrit 35.8 % (37-53); Lymphocytes # 2.4 10^3/uL (0.8-4.8); Lymphocytes % 38.5 %; Mean Corpuscular HGB Conc 33.2 g/dL (30-55); Mean Corpuscular Hemoglobin 30.7 pg (27-33); Mean Corpuscular Volume 92.5 fl (82-101); Mean Platelet Volume 10.7 fL (7.4-10.4); Monocytes # 0.8 10^3/uL (0.2-0.9); Monocytes % 12.8 %; Neutrophils # 2.81 10^3/uL (1.8-7.7); Neutrophils % 44.5 %; Nucleated Red Blood Cells % 0 %; Platelet Count 226 10^3/cmm (157-399); Red Blood Count 3.87 10^6/uL (3.85-5.65); Red Cell Distribution Width 13.2 % (12.1-15.1); White Blood Count 6.31 10^3/uL (3.29-11.43)
[2024-09-18 05:47] LABS: Alanine Aminotransferase 18 U/L (0-41); Albumin Level 3.2 g/dL (3.5-5.2); Alkaline Phosphatase 71 U/L (40-130); Anion Gap 12.6 (5-19); Aspartate Amino Transferase 19 U/L (0-40); Blood Urea Nitrogen 12 mg/dL (8-23); Calcium 8.9 mg/dL (8.5-10.5); Carbon Dioxide 26 mmol/L (22-29); Chloride 105 mmol/L (98-107); Creatinine Clr Calc Pharmacy 101.0936; Globulin 2.5 g/dL (1.3-4.6); Glomerular Filtration Rate 133.6 mL/min (90-130); Glucose 117 mg/dL (65-115); Magnesium 1.4 mg/dL (1.7-2.3); Osmolality Calculated 291 mOsm/kg (285-295); Phosphorus 3.1 mg/dL (2.5-4.5); Potassium 3.6 mmol/L (3.5-5.1); Sodium 140 mmol/L (136-145); Total Bilirubin 1.5 mg/dL (0.15-1.2); Total Protein 5.7 g/dL (6.6-8.7)
[2024-09-18] MEDS: enoxaparin 40 mg/0.4 mL Syringe SUBCUT (06:06)
[2024-09-18 06:27] LABS: Glucose Point of Care 164 mg/dL (70-110)
[2024-09-18 07:05] VITALS: BP 147/73; PULSE 65; RESP 15; TEMP 36.7; O2SAT 96
--- NOTE | 2024-09-18 08:14 | MR_ITS ---
WS: [id number] MRI CERVICAL SPINE NONCONTRAST HISTORY: right arm weakness COMPARISON: None available. Technique: Multiplanar, multisequence noncontrast imaging of the cervical spine. Normal cervical alignment. Anterior cervical fusion at C5-6 with interbody spacer appears intact. Moderate narrowing of the disc spaces, most significant at C4-5 and C6-7. Hypertrophic osteophytes throughout the cervical spine. No marrow edema or acute fracture. There is mild anterior wedging of C7. Signal within the cervical cord is normal. Visualized posterior fossa is unremarkable. Craniocervical junction, C1 and C2 relationship, odontoid process and soft tissues are normal. C2-C3: Normal. C3-C4: Bilateral facet joint arthritis is small foraminal osteophytes. Mild bilateral foraminal stenosis. C4-C5: Diffuse annular disc bulging with osteophytic ridging and facet disease. Severe central and bilateral foraminal stenosis, RIGHT greater than LEFT. Large disc osteophyte complexes in the foramina. C5-C6: Mild annular disc bulging with facet arthritis. Mild central and bilateral foraminal stenosis. C6-C7: Diffuse osteophytic ridging with annular disc bulging and facet arthritis. Moderate to severe central with severe bilateral foraminal stenosis due to disc osteophyte disease. C7-T1: Mild central and foraminal stenosis. Paraspinal soft tissue are normal. MR/MR cervical spin wo con* [id number] IMPRESSION: 1. Prior anterior cervical fusion with interbody spacer at C5-6 is intact. 2. C4-5: Severe central and bilateral foraminal stenosis, RIGHT greater than L EFT. Stenosis due to combination of disc, osteophytosis and facet arthritis. 3. C6-7: Moderate to severe central with severe bilateral foraminal stenosis d ue to disc osteophyte disease. 4. C7-T1: Mild central and foraminal stenosis. 5. C3-4: Mild foraminal stenosis.
[2024-09-18] MEDS: clopidogrel 75 mg Tablet PO (08:16)
[2024-09-18] MEDS: folic acid 1 mg Tablet PO (08:16)
[2024-09-18] MEDS: insulin lispro 100 unit/1 mL SUBCUT ×2 (08:16→12:34)
[2024-09-18] MEDS: thiamine 100 mg/mL 2mL SDV IVP (08:16)
[2024-09-18] MEDS: aspirin 81 mg EC Tablet PO (08:16)
[2024-09-18] MEDS: multivitamin therapeutic Tablet 1 TAB PO (08:16)
[2024-09-18] MEDS: magnesium sulfate premix 1 GM/100 ML PIGGYBACK IV (08:16)
[2024-09-18] MEDS: acetaminophen 325 mg Tablet 650 MG PO (08:20)
[2024-09-18 11:16] VITALS: BP 160/72; PULSE 63; RESP 15; TEMP 36.6; O2SAT 96
[2024-09-18 11:43] LABS: Glucose Point of Care 186 mg/dL (70-110)
--- NOTE | 2024-09-18 12:18 | P.DS_ITS ---
Discharge Providers Date of Admission: 09/17/24 00:08 Date of Discharge: September 18, 2024 Attending Provider at Admission: Pietro Hodge MD Attending Provider at Discharge: Kin Pa MD Primary Care Provider: Mane Carmona DO Diagnoses at Discharge Discharge Diagnosis (1) Acute CVA (cerebrovascular accident): Status: Acute Reason for Visit Reason for Visit: chest pain, stroke like symptoms Hospital Course Hospital Course This is a 69-year-old male with a past medical history of COPD, type 2 diabetes, who presents [facility] for dysarthria and chest pain Acute CVA - Timeframe is not exactly clear, but greater than 24 hours - Word finding difficulty, word salad, right arm weakness, possibly right lower extremity weakness but difficult to assess given his right knee hardware failure, does report numbness of right arm, ataxia right arm, - NIH stroke scale is 4-7 - Out of tPA window CT/CT head wo con* [id number] IMPRESSION: 1. No acute findings. 2. Mild chronic ischemic changes noted MR/MR head wo con* [id number] IMPRESSION: 1. Normal diffusion imaging. No acute infarct. 2. Mild symmetric cerebral, cerebellar and hippocampal atrophy. 3. Mild small vessel ischemic changes, bilateral supratentorial white matter. 4. Bilateral small vessel ischemic changes in the linda. CTA head and neck IMPRESSION: 1. No evidence of acute thrombosis in the neck. 2. Moderate-severe narrowing of the origin of the left vertebral artery secondary to noncalcified atherosclerotic plaque. Follow-up vascular evaluation is recommended. 3. Severe foraminal stenosis on the right at C4-C5. Consider correlation with follow-up outpatient MRI to evaluate for neural impingement. - Neurology was consulted - Received aspirin, statin, Plavix, permissive hypertension - PT OT, speech therapy eval - Right upper extremity strength has significantly improved, strength 4 out of 5, coordination has improved - On discharge has very mild slurring of his words - On discharge has very mild word finding difficulty -Seen by speech therapy, transition to regular diet, regular liquids - Overall clinically improved - Discharge with close follow-up with neurology as outpatient . Moderate-severe narrowing of the origin of the left vertebral artery secondary to noncalcified atherosclerotic plaque. Referral made for vascular surgery Patient had complaints of right arm weakness, intermittent right neck pain, no trauma MRI neck 1. Prior anterior cervical fusion with interbody spacer at C5-6 is intact. 2. C4-5: Severe central and bilateral foraminal stenosis, RIGHT greater than LEFT. Stenosis due to combination of disc, osteophytosis and facet arthritis. 3. C6-7: Moderate to severe central with severe bilateral foraminal stenosis due to disc osteophyte disease. 4. C7-T1: Mild central and foraminal stenosis. 5. C3-4: Mild foraminal stenosis. -Perhaps this could be playing some role in patient's right arm weakness, but he denies any paresthesias, no pain radiating down his neck, and his weakness has significantly improved on discharge - Will have patient follow-up orthopedics/Dr. Franco as outpatient For patient's chest pain complaints, no recurrent chest pain - Cardiac echocardiogram CONCLUSIONS Normal left ventricular size and systolic function, EF 66%.mild left ventricular hypertrophy. No regional wall motion abnormalities. Grade I/IV diastolic dysfunction (abnormal relaxation filling pattern), normal to mildly elevated filling pressures. Thickened mitral valve. Trace tricuspid valve regurgitation. Saline contrast njection revealed no evidence of any right-to- left shunt - Manage on aspirin, Plavix, statin - If any recurrent chest pain go to emergency room - Follow-up with cardiology as outpatient There is concerns for methamphetamine positive urine during his hospitalization, advised against methamphetamine use, with morbidity mortality discussed associated with cardiovascular events, CVA There was concerns for alcoholism during his hospitalization, advised against alcoholism There was concerns for possible Warnicke's encephalopathy, on discharge he is alert oriented x 3, follows all commands, does have intermittent episodes of confusion at times, nonetheless discharged him on thiamine, folic acid, advised to abstain from alcohol use Physical Exam Const: COMMON NORMALS: no acute distress and patient oriented x3 Resp: COMMON NORMALS: normal respiratory effort, No retractions, No use of accessory muscles and clear to auscultation bilaterally AUSCULTATION: clear to auscultation bilaterally Cardio: COMMON NORMALS: regular rate, regular rhythm, S1 normal heart sound present and S2 normal heart sound present RATE: regular rate RHYTHM: regular rhythm HEART SOUNDS: S1 normal heart sound present and S2 normal heart sound present GI: COMMON NORMALS: Normal to inspection, nondistended, normoactive bowel sounds present, Soft to palpation and non-tender PALPATION: Yes Soft to palpation Extremity: COMMON NORMALS: no calf tenderness and no pedal edema Neuro: COMMON NORMALS: patient oriented x3, CN's II-XII intact bilaterally, moves all extremities and no focal motor deficits OTHER: Very mild slurring of his words, very mild word finding difficulty, right upper extremity strength 4/5, right lower extremity strength 4 out of 5, [id number] normal Psych: COMMON NORMALS: mental status grossly normal Discharge Data Studies Completed and Pending Completed Studies During Hospitalization Category Date Time Status CT angio head neck [CT angio headneck* [id number]] Cat Scan 09/17/24 16:[address] head wo con* [id number] Stat Cat Scan 09/16/24 20:16 Completed XR chest 1V portable [id number] Stat Exams 09/16/24 20:15 Completed MR cervical spin wo con* [id number] Routine MRI 09/18/24 08:14 Completed MR head wo con* [id number] Stat MRI 09/17/24 22:48 Completed CV. echo w/w bubble cont [id number] Routine Ultrasound 09/17/24 08:43 Completed Pending at discharge Category Date Time Status Complete Blood Count w/Auto AM LABS Lab 09/19/24 04:00 Ordered Complete Blood Count w/Auto AM LABS Lab 09/20/24 04:00 Ordered Radiology Impressions Chest X-Ray 09/16/24 20:15 IMPRESSION: No acute findings. Head CT 09/16/24 20:16 IMPRESSION: 1. No acute findings. 2. Mild chronic ischemic changes noted Head/Neck CTA 09/17/24 16:41 IMPRESSION: 1. No evidence of large vessel occlusion or acute thrombosis in the head. 2. Age-indeterminate right basal ganglia lacunar infarct, slightly more prominent than on exam from 1 day prior. Consider correlation with MRI. IMPRESSION: 1. No evidence of acute thrombosis in the neck. 2. Moderate-severe narrowing of the origin of the left vertebral artery secondary to noncalcified atherosclerotic plaque. Follow-up vascular evaluation is recommended. 3. Severe foraminal stenosis on the right at C4-C5. Consider correlation with follow-up outpatient MRI to evaluate for neural impingement. 4. Nodularity/scarring in the right middle lobe. Consider follow-up outpatient pulmonary clinic evaluation and dedicated CT of the chest. REFERENCES: NASCET CRITERIA. The degree of stenosis in the cervical segment of the internal carotid artery is based on NASCET criteria. Normal is no stenosis. Mild is less than 50% stenosis. Moderate is 50-69% stenosis. Severe is 70% to 99% stenosis. Total occlusion is no detectable patent lumen. Head MRI 09/17/24 22:48 IMPRESSION: 1. Normal diffusion imaging. No acute infarct. 2. Mild symmetric cerebral, cerebellar and hippocampal atrophy. 3. Mild small vessel ischemic changes, bilateral supratentorial white matter. 4. Bilateral small vessel ischemic changes in the linda. Cervical Spine MRI 09/18/24 08:14 IMPRESSION: 1. Prior anterior cervical fusion with interbody spacer at C5-6 is intact. 2. C4-5: Severe central and bilateral foraminal stenosis, RIGHT greater than LEFT. Stenosis due to combination of disc, osteophytosis and facet arthritis. 3. C6-7: Moderate to severe central with severe bilateral foraminal stenosis due to disc osteophyte disease. 4. C7-T1: Mild central and foraminal stenosis. 5. C3-4: Mild foraminal stenosis. Laboratory Results WBC 6.31 10^3/uL (3.29-11.43) 09/18/24 03:50 RBC 3.87 10^6/uL (3.85-5.65) 09/18/24 03:50 Hgb 11.90 g/dL (11.27-16.99) 09/18/24 03:50 Hct 35.8 % (37-53) L 09/18/24 03:50 MCV 92.5 fl (82-101) 09/18/24 03:50 MCH 30.7 pg (27-33) 09/18/24 03:50 MCHC 33.2 g/dL (30-55) 09/18/24 03:50 RDW 13.2 % (12.1-15.1) 09/18/24 03:50 Plt Count 226 10^3/cmm (157-399) 09/18/24 03:50 MPV 10.7 fL (7.4-10.4) H 09/18/24 03:50 Neut % (Auto) 44.5 % 09/18/24 03:50 Lymph % (Auto) 38.5 % 09/18/24 03:50 [place] % (Auto) 12.8 % 09/18/24 03:50 Eos % (Auto) 3.2 % 09/18/24 03:50 Baso % (Auto) 0.8 % 09/18/24 03:50 Neut # (Auto) 2.81 10^3/uL (1.8-7.7) 09/18/24 03:50 Lymph # (Auto) 2.4 10^3/uL (0.8-4.8) 09/18/24 03:50 [place] # (Auto) 0.8 10^3/uL (0.2-0.9) 09/18/24 03:50 Eos # (Auto) 0.2 10^3/uL (0.0-0.8) 09/18/24 03:50 Baso # (Auto) 0.1 10^3/uL (0.0-0.1) 09/18/24 03:50 Nucleated RBC % (auto) 0 % 09/18/24 03:50 Nucleated RBCs # 0.0 /100WBC 09/18/24 03:50 Sodium 140 mmol/L (136-145) 09/18/24 03:50 Potassium 3.6 mmol/L (3.5-5.1) 09/18/24 03:50 Chloride 105 mmol/L (98-107) 09/18/24 03:50 Carbon Dioxide 26 mmol/L (22-29) 09/18/24 03:50 Anion Gap 12.6 (5-19) 09/18/24 03:50 BUN 12 mg/dL (8-23) 09/18/24 03:50 Creatinine 0.6 mg/dL (0.7-1.2) L 09/18/24 03:50 GFR Calculation 133.6 mL/min (90-130) H 09/18/24 03:50 Glucose 117 mg/dL (65-115) H 09/18/24 03:50 POC Glucose 186 mg/dL (70-110) H 09/18/24 11:16 Calculated Osmolality 291 mOsm/kg (285-295) 09/18/24 03:50 Calcium 8.9 mg/dL (8.5-10.5) 09/18/24 03:50 Phosphorus 3.1 mg/dL (2.5-4.5) 09/18/24 03:50 Magnesium 1.4 mg/dL (1.7-2.3) L 09/18/24 03:50 Total Bilirubin 1.5 mg/dL (0.15-1.2) H 09/18/24 03:50 AST 19 U/L (0-40) 09/18/24 03:50 ALT 18 U/L (0-41) 09/18/24 03:50 Alkaline Phosphatase 71 U/L (40-130) 09/18/24 03:50 Troponin T Baseline 65 ng/L (0-15) H 09/16/24 20:25 Troponin T 120 Minute 61.77 ng/L (0-15) H 09/16/24 22:15 Delta Troponin T -3.23 ABS# (0-10) L 09/16/24 22:15 Troponin T Hi Sens 6Hr 54.84 ng/L (0-15) H 09/17/24 02:25 Troponin T Hi Sens 6Hr Delta -10.16 ng/L (0-12) L 09/17/24 02:25 Total Protein 5.7 g/dL (6.6-8.7) L 09/18/24 03:50 Albumin 3.2 g/dL (3.5-5.2) L 09/18/24 03:50 Globulin 2.5 g/dL (1.3-4.6) 09/18/24 03:50 Triglycerides 52 mg/dL (0-150) 09/17/24 02:25 Cholesterol 86 mg/dL (0-200) 09/17/24 02:25 LDL Cholesterol, Calc 27 mg/dL (50-129) L 09/17/24 02:25 HDL Cholesterol 49 mg/dL (60-100) L 09/17/24 02:25 LDL/HDL Ratio 0.55 RATIO (0.00-3.22) 09/17/24 02:25 Cholesterol/HDL Ratio 1.76 mg/dL (1.0-5.00) 09/17/24 02:25 Urine Opiates Screen Negative ng/mL (Negative) 09/17/24 18:20 Ur Barbiturates Screen Negative ng/mL (Negative) 09/17/24 18:20 Ur Phencyclidine Scrn Negative ng/mL (Negative) 09/17/24 18:20 Ur Amphetamines Screen Positive ng/mL (Negative) H 09/17/24 18:20 U Benzodiazepines Scrn Negative ng/mL (Negative) 09/17/24 18:20 Urine Cocaine Screen Negative ng/mL (Negative) 09/17/24 18:20 U Marijuana (THC) Screen Positive ng/mL (Negative) H 09/17/24 18:20 Ethyl Alcohol < 10 mg/dL (0-10) 09/16/24 20:25 Vitals Last Vital Signs Temp 98.1 F 09/18/24 07:05 Pulse 65 09/18/24 07:05 Resp 15 09/18/24 07:05 BP 147/73 09/18/24 07:05 Pulse Ox 96 09/18/24 07:05 O2 Del Method Room Air 09/18/24 07:05 Discharge Plan Discharge Patient Disposition: Home Condition: Stable Prescriptions: New clopidogrel 75 mg Tablet 75 mg PO DAILY 21 Days Qty: 21 0RF aspirin 81 mg Tablet,Delayed Release (Dr/Ec) 81 mg PO DAILY 30 Days Qty: 30 0RF multivitamin with folic acid [Thera] 400 mcg Tablet 1 tab PO DAILY 30 Days Qty: 30 0RF thiamine HCl (vitamin B1) 100 mg tablet 100 mg PO DAILY 30 Days Qty: 30 0RF nitroglycerin 0.4 mg tablet, sublingual 0.4 mg sublingual Q5M PRN (Reason: chest pain) 30 Days Qty: 30 0RF Rx Instructions: do not exceed 3 doses per episode Continued (DME) Diabetic Shoes See Rx Instructions .Route .MEDSUPPLY Qty: 1 0RF Rx Instructions: As directed Home 3 x insoles losartan 100 mg tablet 100 mg PO DAILY metformin 500 mg tablet extended release 24 hr 2,000 mg PO QAM glipizide 5 mg tablet 5 mg PO BID albuterol sulfate 90 mcg/actuation HFA aerosol inhaler 1 puff INHALATION Q6H PRN (Reason: Shortness Of Breath Or Wheezing) buprenorphine 15 mcg/hour patch weekly 1 patch topical Q7D atorvastatin 40 mg tablet 40 mg PO DAILY 30 Days Qty: 30 0RF Discharge Orders: Discharge Order (Routine); Ordered 09/18/24 Ordered By: Kin Pa Other Ambulatory Orders: MCT/Event Monitor 30 Days (Routine) Timeframe: 1 Day Facility: [facility] - Location: Radiology Ordered By: Kin Pa Referrals: Sebastian Franco DO [Physician, Orthopedics] Referral Note: Neck pain previous cervical fusion We have notified your physician's clinic of the need for a follow-up cally ointment to be scheduled. If you have not heard from them within the next 2 business days, please call them directly. Ho Go MD [Physician, Neurology] Referral Note: stroke We have notified your physician's clinic of the need for a follow-up appointment to be scheduled. If you have not heard from them within the next 2 business days, please call them directly. Ephraim Núñez MD [Physician, Cardiology] - 1 month Fransisco Johnson MD [Occupational Therapist, Vascular Surgery] - 1 week Referral Note: left vertebral arterey stenosis Mane Carmona DO [Primary Care Provider] - 09/23/24 11:00 am Discharge Diet: Diabetic Discharge Activity: Resume usual activity Patient Instructions: Aspirin (By mouth), Thiamine (By mouth), Clopidogrel (By mouth), Stroke (GEN), Opioid Safety, Stroke Stoplight Activity Restrictions/Additional Instructions: - Please abstain from drug use - Please abstain from alcohol use - If any recurrent strokelike symptoms, the 1 - Continue aspirin, Plavix, statin -Follow-up with neurology as outpatient - Please follow-up with primary care provider for blood pressure management - Please follow-up with cardiology as outpatient - Please follow-up with Dr. Franco as outpatient Discharge Attestations Time Spent in Discharge Care*: greater than 30 min Quality Metrics Clinical Quality Measures [ Cerebrovascular Accident { Contraindication to Antithrombotic: None; antithrombotic prescribed; Contraindication to Anticoagulation: Overlap treatment not indicated; Contraindication to Statin: None; Statin prescribed;}] Coding Level of Care Code 78246 Total time (in minutes) for Discharge: 45 Diagnoses Acute CVA (cerebrovascular accident) I63.9
--- NOTE | 2024-09-18 13:25 | PC.NURSE ---
Discharge Note Patient discharged to Home via private vehicle accompanied by sister. Discharge instructions reviewed with patient and/or accounts payable representative. Mobile pharmacy medications and/or prescriptions provided. Belongings/home medications returned. Patient has a heart monitor that this nurse instructed the patient on how to place. Placed on patient before he left. Medication's were delivered to patient and sister which is his ride is on the way. Instructed patient to quite drugs and smoking and to come in immediately and not to wait if he has stroke symptoms. Stroke booklet provided to patient.
[2024-09-18 13:30] VITALS: BP 160/72; PULSE 63; RESP 15; TEMP 36.6; O2SAT 96
== END 2024-09-18 14:22 | disposition home or self-care (01) ==
LOC: ER 09-17 00:54 → ER IP 09-17 01:12 → MEDSURG 09-17 12:27
PROVIDERS: Family Medicine; Admitting Provider Internal Medicine; Emergency Provider Student in an Organized Health Care Education/Training Program; PCP Family Medicine; Visit Provider Family Medicine
DX: I63.9 Cerebral infarction, unspecified (principal); R29.704 NIHSS score 4; J44.9 Chronic obstructive pulmonary disease, unspecified; E11.9 Type 2 diabetes mellitus without complications; Z79.84 Long term (current) use of oral hypoglycemic drugs; F17.210 Nicotine dependence, cigarettes, uncomplicated; R29.898 Other symptoms and signs involving the musculoskeletal system; F15.10 Other stimulant abuse, uncomplicated; R79.89 Other specified abnormal findings of blood chemistry
CPT/HCPCS: 36415; 36416; 70450; 70496; 70498; 70551; 71045; 72141; 80053; 80061; 80306; 80307; 82962; 83735; 84100; 84484; 85025; 92507; 92523; 92526; 92610; 93005; 96365; 96372; 96375; 97162; 97166; 97530; 99285; C8929; G0378; J1650; J1815; J3411; J3475; J3480; J9999

== ENCOUNTER → 2024-10-03 12:18 | Outpatient (BNVA) | payer MEDICARE, SELFPAY | PROVIDERS: PCP Family Medicine; Visit Provider Podiatrist Foot & Ankle Surgery | DX: E11.42 Type 2 diabetes mellitus with diabetic polyneuropathy (principal); L60.3 Nail dystrophy; L84 Corns and callosities; G62.9 Polyneuropathy, unspecified; Z79.84 Long term (current) use of oral hypoglycemic drugs | CPT/HCPCS: 11721; 99213 ==

== ENCOUNTER → 2024-10-29 11:13 | Outpatient (BNVA) | payer MEDICARE, SELFPAY | PROVIDERS: PCP Family Medicine; Visit Provider Orthopaedic Surgery | DX: M54.2 Cervicalgia (principal) | CPT/HCPCS: 72040; 99203 ==

== ENCOUNTER 2025-01-25 01:27 | Emergency (ER) | payer MEDICARE, MEDICAID, SELFPAY ==
--- OUTSIDE RECORDS SUMMARY | 2025-01-25 01:36 | XMS_ITS | Encounter Summary ---
Author Organization [facility] Address [address] [place] [address] Care Team Providers Care Internal Security Manager Name Role Phone Denaanusha Mane RIOS Primary Care Provider Reason for Visit * Reason Onset Date Comments Clinical Consult Before Scheduling Abscess 01/21/2025 Location belt ne left side. Encounter Details Date Type Department Care Team (Late st Contact Info) Description 01/21/2025 Nurse Triage [facility] Medicine [address] [phone] DenaMane tavaresDO [address] [phone] Social History Tobacco Use Types Packs/Day Years Used Date Smoking Tobacco: Former Cigarettes Q uit: 08/16/1999 Passive Smoke Exposure: Current Smokeless Tobacco: Former Chew Alcohol Use Standard Drinks/Week Comments No 0 (1 standard drink = 0.6 oz pur e alcohol) Feeling Safe Answer Date Recorded Are you in a relationship wi th someone who hurts you emotionally and/or physically? No 10/31/2023 Sex and Gender Information Value Date Recorded Sex Assigned at Not on file Legal Sex Male 4:09 PM [employer] DEVEL[employer] Gender Identity Not on file Sexual Orientation Not on file documented as of this encounter Miscellaneous Notes * Telephone Encounter - Lorie Hickey LPN - 01/21/2025 1:52 PM CDT Patient states that he has a boil on left side, Belt area. Patient states that he popped it and gotsome drainage out of it. Drainage was green/yellow, with some blood. Patient states area is painful, red, warm. Patient denies nausea or vomiting. Denies fever at this time. Patient would like appointment with provider at this time. Patient does not want to go to urgent care and no available appointment with Sera Zhu until . Patient is wanting to wait and seeTurner. Appointment scheduled at this time for morning. Advised patient to keep area clean and dry. To keep covered so that jeans do do rub area and cause more irritation. Patient states understanding. Patient is to call back if drainage increases, fever , lines coming from area, nause or vomiting. Patient states understanding. Lorie Hickey LPN, 01/21/2025 2:01 PM * Telephone Encounter - Estella Aiken - 01/21/2025 1:51 PM CDT Copied from [facility] #[id number]. Topic: Symptomatic Care >> Jan 21, 2025 1:44 PM Estella Ruff wrote: Has this patient seen any provider (current or former) at the requested clinic in the past? Yes, Select the appropriate age range and symptom Patient has symptoms and is seeking care. Caller Name: Ezekiel Romero Callback Number: Telephone Information: Call Notes: boil that is giving him pain on waist, says he popped it. 3 days. Age Range/Symptom: Adult 18+ - Pain, present for less than 3 days AND 8, 9 or 10 severity on a 0-10scale (10 being worst) Is there an encounter open? No Transferred to [facility] joaquin answered call. documented in this encounter Plan of Treatment Upcoming Encounters Date Type Department Care Team (Late st Contact Info) Description 02/13/2025 2:30 PM CDT Office Visit [facility] [address] [place] [phone] Alondra Mireles, [facility] [address] [place] [phone] 03/03/2025 1:00 PM CDT Office Visit [facility]- [place] [address] [place] [address] Sarah Moreland NP [address] [facility] [address] [place] [address] 06/11/2025 3:00 PM [employer]EL[employer] Office Visit [facility] [address] [place] [phone] Mane Carmona DO [address] [place] [address] [phone] documented as of this encounter Visit Diagnoses Not on filedocumented in this encounter Additional Health Concerns Assessment Noted Time PHQ-9 Depression Total Score: 4 11/29/19 25 8:00 AM CDT documented as of this encounter Care Teams Internal Security Manager Relationship Specialty Start Date End Date Mane Carmona DO [address] [place] [address] [phone] PCP - General Family Practice 09/02/21 documented as of this encounter
--- OUTSIDE RECORDS SUMMARY | 2025-01-25 01:36 | XMS_ITS | Clinical Summary ---
Author Organization [facility] Address [address] Tan: Epic Prelude ADT WHITNEY CHEN [address] Care Team Providers Care Check Writing Machine Operator Name Role Phone Mane Carmona Primary Care Provider [phone] Allergies Active Allergy Reactions Criticality Noted Date Comments Gabapentin Confusion Low 12/12/2023 Tramadol Muscle Pain Low 09/15/2022 Medications lancetsIndication s:Type 2 diabetes mellitus with hyperglycemia, without long-term current use of insulin ([facility]) For twice daily glucose monitoring 100 Each 11 2 Active aspirin (ECOTRIN EC) 81 mg Tablet, Delayed Release (E.C.) Take 81 mg by mouth daily. Active albuterol sulfate 90 mcg/Actuation inhalerIndication s:Wheezing on auscultation Take 2 Puffs by inhalation every 6 hours as needed for Shortness of Breath or Wheezing. 8.5 Gram 1 2 Active naloxone (NARCAN) 4 mg/spray [place], Non-Aerosol Call 911. Administer a single spray of NARCAN in one nostril. Repeat every 2-3 minutes as needed if no or minimal response. 4 Active blood sugar diagnostic (Accu-Chek Guide test strips) StripIndications: Type 2 diabetes mellitus with hyperglycemia, without long-term current use of insulin ([facility]) USE 1 TWICE DAILY DX E11.9 100 Each 5 4 Active glipiZIDE (GLUCOTROL) 5 mg tabletIndications :Type 2 diabetes mellitus with hyperglycemia, without long-term current use of insulin ([facility]) Take 1 Tablet (5 mg) by mouth 2 times daily. 200 Tablet 3 4 Active methocarbamoL (ROBAXIN) 750 mg tabletIndications :Low back pain radiating to lower extremity Take 1 Tablet (750 mg) by mouth 4 times daily. 120 Tablet 1 4 Active losartan (COZAAR) 100 mg tabletIndications :Type 2 diabetes mellitus with hyperglycemia, without long-term current use of insulin ([facility]),Essenti al hypertension Take 1 Tablet (100 mg) by mouth daily. 100 Tablet 3 4 Active Blood-Glucose Meter KitIndications:Ty pe 2 diabetes mellitus with hyperglycemia, without long-term current use of insulin ([facility]) For blood sugar checks twice daily. Dx E11.9 1 Each 5 Active atorvastatin (LIPITOR) 40 mg tablet Take 1 Tablet (40 mg) by mouth daily. 100 Tablet 3 5 Active nitroglycerin (NITROSTAT) 0.4 mg Tablet, Sublingual dissolve 1 tablet under the tongue every 5 minutes as needed for chest pain. do not exceed a total of 3 doses in 15 minutes. 5 Active clopidogreL (PLAVIX) 75 mg Tablet TAKE ONE TABLET BY MOUTH DAILY for 21 DAYS 5 Active thiamine (VITAMIN B-1) 100 mg tablet Take 1 Tablet by mouth daily. 5 Active Tab-A-Eben 400 mcg Tablet tablet Take 1 Tablet by mouth daily. 5 Active buprenorphine (BUTRANS) 15 mcg/hour patchIndications: Chronic pain syndrome,Opioid use disorder, moderate, dependence ([facility]) Apply 1 Patch to skin as directed every 7 days. FOR 28 DAYS 4 Patch 5 Active DULoxetine (CYMBALTA) 60 mg Capsule, Delayed Release(E.C.)Maribel cations:Chronic pain syndrome,Low back pain radiating to lower extremity Take 1 Capsule (60 mg) by mouth daily. 30 Capsule 2 5 Active metFORMIN (GLUCOPHAGE XR) 500 mg Extended Release 24 hour tabletIndications :Type 2 diabetes mellitus with hyperglycemia, without long-term current use of insulin ([facility]) TAKE 4 TABLETS BY MOUTH ONCE DAILY WITH BREAKFAST FOR DIABETES 360 Tablet 3 5 Active Active Problems Problem Noted Date Diagnosed Date History of TIA (transient ischemic attack) and s troke 09/23/2024 Moderate episode of recurrent major depressive d isorder 09/23/2024 Type 2 diabetes mellitus wit h stage 3 chronic kidney disease, without long-term current use of insulin 06/04/2024 Essential hypertension 12/12/2023 Varicose veins of both legs with edema Benign prostatic hyperplasia with weak urinary s tream 11/01/2022 Erectile dysfunction 11/01/2022 Low back pain radiating to lower extremity 11/01 Type 2 diabetes mellitus wit h hyperglycemia, without long-term current use of insulin 12/07/2021 Elevated liver enzymes 12/07/2021 History of hepatitis C 08/22/2016 Encounters Date Type Department Care Team Description 01/21/2025 Nurse Triage [address] [address] Mane Carmona DO 01/08/2025 External Device Data [facility] ABSTRACTION Provider, Abstract 01/07/2025 External Device Data [facility] ABSTRACTION Provider, Abstract 12/18/2024 External Device Data [facility] ABSTRACTION Provider, Abstract 12/17/[address] [phone] Mane Carmona DO Type 2 diabetes mellitus with hyperglycemia, without long-term current use of insulin ([facility]) 12/16/2024 Results Follow-Up [address] [phone] Mane Carmona DO MEDICATION COMPLIANCE DRUG SCREEN 12/09/2024 1:20 PM CDT Office Visit [address] [phone] Sera Zhu, MAR Chronic pain syndrome; Low back pain radiating to lower extremity 11/29/2024 11:00 AM CDT Clinical Support [address] [address] Encounter for long-term (current) use of medications 11/28/2024 9:00 AM CDT Office Visit [address] [address] Mane Carmona DO Chronic pain syndrome (Primary Dx); Low back pain radiating to lower extremity; Encounter for long-term (current) use of medications; Opioid use disorder, moderate, dependence (CMS/HCC) 11/28/2024 Telephone [facility] [address] [address] Mane Carmona DO Drug Screen 11/27/2024 External Device Data [facility] ABSTRACTION Provider, Abstract 11/26/2024 External Device Data [facility] ABSTRACTION Provider, Abstract 11/18/2024 Nurse Triage [facility] [address] [place] [phone] Dee Guerrier RN 10/29/2024 External Device Data [facility] ABSTRACTION Provider, Abstract 10/25/2024 Telephone [facility] [address] [phone] Mane Carmona DO Provider Call from Last 3 Months Family History Medical History Relation Name Comments No Known Problems Father Dementia Mother Heart Disease Mother Hypertension Mother Colon Cancer Neg Hx Relation Name Status Comments Father Mother Alive Social History Tobacco Use Types Packs/Day Years Used Date Smoking Tobacco: Former Cigarettes Q uit: 08/16/1999 Passive Smoke Exposure: Current Smokeless Tobacco: Former Chew Tobacco Cessation:Counseling Given: Not Answered Alcohol Use Standard Drinks/Week Comments No 0 (1 standard drink = 0.6 oz pur e alcohol) Feeling Safe Answer Date Recorded Are you in a relationship wi th someone who hurts you emotionally and/or physically? No 10/31/2023 Sex and Gender Information Value Date Recorded Sex Assigned at Not on file Legal Sex Male 4:09 PM SPORTS JOURNALIST Gender Identity Not on file Sexual Orientation Not on file Last Filed Vital Signs Vital Sign Reading Time Taken Comments Blood Pressure 136/74 12/09/2024 1:33 PM CDT Pulse 101 12/09/2024 1:33 PM CDT Temperature 37.3 C (99.1 F) 12/09/2024 1:33 PM CDT Respiratory Rate 18 12/09/2024 1:33 PM CDT Oxygen Saturation 96% 12/09/2024 1:33 PM CDT Inhaled Oxygen Concentration - - Weight 84.8 kg (187 lb) 12/09/2024 1:33 PM CDT Height 185.4 cm (6' 1 ) 12/09/2024 1:33 PM CDT Body Mass Index 24.67 12/09/2024 1:33 PM CDT Plan of Treatment Upcoming Encounters Date Type Department Care Team (Late st Contact Info) Description 02/13/2025 2:30 PM CDT Office Visit [facility] [address] [phone] Alondra Mireles, BUSINESS MANAGEMENT PROFESSOR [address] [place] [phone] 03/03/2025 1:00 PM CDT Office Visit [facility] [place] [address] [address] Sarah Moreland, WEED CONTROL INSPECTOR [address] [address] 06/11/2025 3:00 PM SPORTS JOURNALIST Office Visit [facility] [address] [phone] Mane Carmona DO [address] [place] [phone] Health Maintenance Due Date Last Done Comments DTAP/TDAP/TD VACCINES (1 - Tdap) 1974 PNEUMOCOCCAL VACCINE 50+ YEA RS (1 of 2 - PCV) 1974 FIT-DNA Q 3 years 01/25/2000 FIT/FOBT Q 1 year 01/25/2000 Flex Sig/CT Colonography Q 5 years 01/25/2000 ZOSTER VACCINE (1 of 2) 2005 RSV VACCINE (60+ or ) (1 - Risk 60-74 years 1-dose series) 2015 Abdominal Aortic Aneurysm (A AA) Screening 01/25/2020 DIABETES ANNUAL RETINAL EXAM 04/27/2023, 02/11/2022, 01/11/2022 [place] Preventative Visit/Annual Wellness Visit 05/15/2024 INFLUENZA VACCINE (#1) 2024 DIABETES HBA1C Q 6 MONTHS 02/14/20252024, 05/09/2024, 12/12/2023, Additional history exists DIABETES ANNUAL FOOT EXAM 05/09/20252023, 02/17/2023, 12/07/2021 DIABETES MICROALBUMIN ANNUAL SCREEN 06/04/2025 06/04/2024, 06/22/2023, 11/01/2022, Additional history exists COLORECTAL SCREENING 07/11/2025 07/11/2022, 07/11/2022, 04/16/2014, Additional history exists Colorectal Cancer Screening 07/11/2025 DIABETES: A1C (Auto Order) 08/15/202508/15, 05/09/2024, 12/12/2023, Additional history exists LDL CHOLESTEROL ANNUAL 09/17/2025 , 08/15/2024, 02/09/2023, Additional history exists KHE eGFR (Auto Order) Completed 09/18/2024 , 09/16/2024, 08/15/2024, Additional history exists KHE uACR (Auto Order) Completed 11/29/2024 , 06/04/2024, 06/22/2023, Additional history exists Procedures Procedure Name Priority Date/Time Associated Diagnosis Comments MEDICATION COMPLIANCE DRUG SCREEN Routine 11/29/2024 11:14 AM CDT Encounter for long-term (current) use of medications COMPREHENSIVE METABOLIC PANEL Routine 09/18/2024 10:38 AM CDT LIPID PANEL Routine 09/17/2024 HEMOGLOBIN A1C Routine 08/15/2024 2:39 PM CDT Type 2 diabetes mellitus with hyperglycemia, without long-term current use of insulin ([facility]) Type 2 diabetes mellitus with stage 3a chronic kidney disease, without long-term current use of insulin ([facility]) MICROALBUMIN/CREATININ E RATIO, RANDOM UR Routine 06/04/2024 9:46 AM SPORTS JOURNALIST Type 2 diabetes mellitus with stage 3 chronic kidney disease, without long-term current use of insulin, unspecified whether stage 3a or 3b CKD ([facility]) COLONOSCOPY REPORT 07/11/2022 3: 06 PM SPORTS JOURNALIST DIABETES EYE EXAM Routine 04/27/2022 from Last 3 Months or Most Recently Relevant to Health Maintenance Results * (ABNORMAL) MEDICATION COMPLIANCE DRUG SCREEN (11/29/2024 11:14 AM CDT) Summary [facility] Comment: Prescribed Prescribed Not Prescribed Consistent Inconsistent Inconsistent Butrans(TM) Methamphetamine Medical Marijuana Prescribed Drug 1 Butrans(TM) [facility] Prescribed Drug 2 Medical Marijuana [facility] BUPRENORPHINE (URINE) NEGATIVE <5 ng/mL [facility] medMATCH Buprenorphine, Urine INCONSISTENT (A) [facility] Fentanyl NEGATIVE <0.5 ng/mL [facility] Propoxyphene, Urine NEGATIVE <300 ng/mL [facility] MDA (Ecstasy Mtb), Urine NEGATIVE <200 ng/mL [facility] MDMA (Ecstasy), Urine NEGATIVE <200 ng/mL [facility] MDMA Comments [facility] Comment:See LDT Notes Meprobamate, Urine NEGATIVE <1000 ng/mL [facility] Carisoprodol Comments [facility] Comment:See LDT Notes Tapentadol, Urine NEGATIVE <50 ng/mL [facility] Nortapentadol, Urine NEGATIVE <50 ng/mL [facility] Tapentadol Comments [facility] Comment:See LDT Notes O-Desmethyltramadol , Urine NEGATIVE <100 ng/mL [facility] Tramadol, Urine NEGATIVE <100 ng/mL [facility] Tramadol Comments [facility] Comment:See LDT Notes Gabapentin, Urine NEGATIVE <1000 ng/mL [facility] Gabapentin Comments [facility] Comment:See LDT Notes Meperidine, Urine NEGATIVE <100 ng/mL [facility] Normeperidine, Urine NEGATIVE <100 ng/mL [facility] Meperidine Comments [facility] Comment:See LDT Notes PREGABALIN, QUANT URINE NEGATIVE <1000 ng/mL [facility] Pregabalin Comments [facility] Comment:See LDT Notes Alcohol Metabolites, Urine NEGATIVE <500 ng/mL [facility] AMPHETAMINES (URINE) POSITIVE(A) <500 ng/mL [facility] Amphetamine, Urine NEGATIVE <250 ng/mL [facility] Methamphetamine, Urine 1730(H) <250 ng/mL [facility] medMATCH Methamphetamine, Urine INCONSISTENT (A) [facility] Amphetamines Comments [facility] Comment:See Amphetamines Not es, LDT Notes BARBITURATES (URINE) NEGATIVE <300 ng/mL [facility] BENZODIAZEPINES (URINE) NEGATIVE <100 ng/mL [facility] COCAINE & METABOLITE (URINE) NEGATIVE <150 ng/mL [facility] 6 ACETYLMORPHINE, URINE NEGATIVE <10 ng/mL [facility] CANNABINOIDS QUAL, URINE NEGATIVE <20 ng/mL [facility] medMATCH Marijuana Metab, Urine INCONSISTENT (A) [facility] medMATCH Marijuana Metab, Urine INCONSISTENT (A) [facility] Methadone Metabolite, Urine NEGATIVE <100 ng/mL [facility] OPIATE CLASS (URINE) NEGATIVE <100 ng/mL [facility] OXYCODONE CLASS (URINE) NEGATIVE <100 ng/mL [facility] PHENCYCLIDINE, URINE NEGATIVE <25 ng/mL [facility] Creatinine, Urine 13.5(L) > or = 20.0 mg/dL [facility] SPECIFIC GRAVITY UA 1.003 > or = 1.003 [facility] PH 6.7 4.5 - 9.0 [facility] OXIDANT, URINE NEGATIVE <200 mcg/mL [facility] ZOLPIDEM, URINE NEGATIVE <5 ng/mL [facility] Zolipidem Metabolite, Urine NEGATIVE <5 ng/mL [facility] Zolpidem Comments [facility] Comment:See LDT Notes COMMENT TOXICOLOGY [facility] Comment: This drug testing is for medical treatment only. Analysis was performed as non-forensic testing and these results should be used only by healthcare providers to render diagnosis or treatment, or to monitor progress of medical conditions. Amphetamines Notes: Methamphetamine detected is consistent with the use of the drug Methamphetamine. The metabolite Amphetamine is not present at or above the cutoff. LDT Notes: Confirmation tests were developed and their analytical performance characteristics have been determined by [facility]. It has not been cleared or approved by the FDA. This assay has been validated pursuant to the CLIA regulations and is used for clinical purposes. medMATCH(R) enables providers to identify if drug use is consistent or inconsistent with a corresponding prescribed medication(s) list. Healthcare Providers needing Interpretation assistance, please contact us at [phone] ( ) M-F, 8am to 10pm EST Test Performed at: [facility] [id number] [place] [address] Ricardo DUONG Urine URINE SPECIMEN OBTAINED BY CLEAN CATCH PROCEDURE / Unknown 11/29/2024 11:14 AM CDT 11/30/2024 2:13 AM CDT Mane Carmona DO URINE ORDERABLES Final Result [facility] [phone] [facility] [address] [place] [address] * COMPREHENSIVE METABOLIC PANEL (09/18/2024 10:38 AM CDT) Blood us Abstract Provider CHEMISTRY ORDERABLES Final Res ult * LIPID PANEL (09/17/2024) ABSTRACTED CHOLESTEROL 86 ABSTRACTED TRIGLYCERIDE 52 ABSTRACTED HDL 49 ABSTRACTED LDL CALCULATED 27 Blood 09/17/2024 us Abstract Provider CHEMISTRY ORDERABLES Final Res ult * (ABNORMAL) HEMOGLOBIN A1C (08/15/2024 2:39 PM CDT) HEMOGLOBIN A1C 7.9(H) <5.7 % of total Hgb [facility] Comment: For someone without known diabetes, a hemoglobin A1c value of 6.5% or greater indicates that they may have diabetes and this should be confirmed with a follow-up test. For someone with known diabetes, a value <7% indicates that their diabetes is well controlled and a value greater than or equal to 7% indicates suboptimal control. A1c targets should be individualized based on duration of diabetes, age, comorbid conditions, and other considerations. Currently, no consensus exists regarding use of hemoglobin A1c for diagnosis of diabetes for children. ESTIMATED AVERAGE GLUCOSE (MG/DL) 180 mg/dL [facility] ESTIMATED AVERAGE GLUCOSE (MMOL/L) 10.0 mmol/L [facility] Comment: Test Performed at: [facility] [address] [place] [address] Jack Sands MD Blood 08/15/2024 2:39 PM CDT 08/15/2024 2:40 PM CDT us Alondra Mireles BUSINESS MANAGEMENT PROFESSOR CHEMISTRY ORDERABLES Final Re sult [facility] [phone] [facility] [address] [place] [address] * MICROALBUMIN/CREATININE RATIO, RANDOM UR (06/04/2024 9:46 AM SPORTS JOURNALIST) Creatinine, Urine 59 20 - 320 mg/dL [facility] MICROALBUMIN, URINE 1.7 See Note: mg/dL [facility] Comment: Reference Range: Reference Range Not established MICROALBUMIN/CREAT RATIO, UR 29 <30 mg/g creat [facility] Comment: The ADA defines abnormalities in albumin excretion as follows: Albuminuria Category Result (mg/g creatinine) Normal to Mildly increased <30 Moderately increased 30-299 Severely increased > OR = 300 The ADA recommends that at least two of three specimens collected within a 3-6 month period be abnormal before considering a patient to be within a diagnostic category. Test Performed at: [facility] [address] [place] [address] Jack Sands MD Urine URINE SPECIMEN OBTAINED BY CLEAN CATCH PROCEDURE / Unknown 06/04/2024 9:46 AM SPORTS JOURNALIST 06/04/2024 9:47 AM SPORTS JOURNALIST Mane Carmona DO URINE ORDERABLES Final Result [facility] [phone] [facility] [address] [place] [address] * COLONOSCOPY REPORT (07/11/2022 3:06 PM SPORTS JOURNALIST) Narrative Procedure Note Freddei Price MD - 07/11/2022 3:05 PM CST [facility] GI Patient Name: Rad Romero Procedure Date: 07/11/2022 Date of : 1955 Admit Type: Outpatient Age: 67 Attending MD: Freddie Price MD, Procedure: Colonoscopy Indications: High risk colon cancer surveillance: Personal history of colonic polyps Providers: Freddie Price MD Referring MD: Mane Carmona Medicines: Propofol per Anesthesia Complications: No immediate complications. Procedure: Pre-Anesthesia Assessment: - Prior to the procedure, a History and Physical was performed, and patient medications and allergies were reviewed. The patient's tolerance of previous anesthesia was also reviewed. The risks and benefits of the procedure and the sedation options and risks were discussed with the patient. All questions were answered, and informed consent was obtained. Prior Anticoagulants: The patient has taken no anticoagulant or antiplatelet agents. ASA Grade Assessment: III - A patient with severe systemic disease. After reviewing the risks and benefits, the patient was deemed in satisfactory condition to undergo the procedure. After I obtained informed consent, the scope was passed under direct vision. Throughout the procedure, the patient's blood pressure, pulse, and oxygen saturations were monitored continuously. The Colonoscope was introduced through the anus and advanced to the cecum, identified by appendiceal orifice and ileocecal valve. The colonoscopy was performed without difficulty. The patient tolerated the procedure well. The quality of the bowel preparation was fair. The ileocecal valve, appendiceal orifice, and rectum were photographed. Estimated Blood Loss: Estimated blood loss was minimal. Findings: A moderate amount of semi-solid stool and debris was found in the entire colon, interfering with visualization in areas. A 4 mm polyp was found in the ascending colon. The polyp was sessile. The polyp was removed with a cold snare. Resection and retrieval were complete. A 6 mm polyp was found in the transverse colon. The polyp was sessile. The polyp was removed with a cold snare. Resection and retrieval were complete. External hemorrhoids were found during retroflexion. The hemorrhoids were medium-sized. Impression: - Preparation of the colon was fair. - Stool in the entire examined colon. - One 4 mm polyp in the ascending colon, removed with a cold snare. Resected and retrieved. - One 6 mm polyp in the transverse colon, removed with a cold snare. Resected and retrieved. - External hemorrhoids. Recommendation: - Patient has a contact number available for emergencies. The signs and symptoms of potential delayed complications were discussed with the patient. Return to normal activities tomorrow. Written discharge instructions were provided to the patient. - Resume previous diet. - Continue present medications. - Repeat colonoscopy for surveillance in 3 years because the bowel preparation was suboptimal. Freddie Price MD 07/11/2022 3:04:50 PM Number of Addenda: 0 Note Initiated On: 07/11/2022 2:33 PM Scope Withdrawal Time 0 hours 14 minutes 25 seconds Scope In: 2:42:03 PM Scope Out: 3:01:14 PM [address] [place], [place] Freddie Price MD GI PROCEDURE ORDERA BLES Final Result * DIABETES EYE EXAM (04/27/2022) us Abstract Provider HEALTH MAINTENANCE Final Resul t from Last 3 Months or Most Recently Relevant to Health Maintenance Insurance MEDICAID [place] [facility] Advance Directives For more information, please contact: [phone] * Full Code (Latest Code Status on File) Date Activated Date Inactivated Comments 09/23/2024 11:51 AM * Full Code Date Activated Date Inactivated Comments 07/11/2022 2:09 PM 07/11/2022 6:32 PM Care Teams Check Writing Machine Operator Relationship Specialty Start Date End Date Mane Carmona DO [address] [place] [address] PCP - General Family Practice 09/02/21
--- OUTSIDE RECORDS SUMMARY | 2025-01-25 01:36 | XMS_ITS | Clinical Summary ---
Author Organization [facility] tone Address [address] [place] [address] Care Team Providers Care Drying And Winding Supervisor Name Role Phone Peg Magdaleno Primary Care Provider Allergies No known active allergies Medications aspirin (JANE CHEWABLE) 81 mg Tablet, Chewable Take 81 mg by mouth daily. Active glipiZIDE (GLUCOTROL) 5 mg tabletIndication s:Type 2 diabetes mellitus without complication, without long-term current use of insulin (CMS/HCC) Take 1 Tablet (5 mg) by mouth daily with breakfast. 90 Tablet 1 01/02/2017 Active metFORMIN (GLUCOPHAGE) 1,000 mg tablet Take 1 Tablet (1,000 mg) by mouth 2 times daily with meals. 60 Tablet 5 01/02/2017 Active Active Problems Problem Noted Date Diagnosed Date History of hepatitis C 08/22/2016 Family History Medical History Relation Name Comments No Known Problems Father Dementia Mother Heart Disease Mother Hypertension Mother Relation Name Status Comments Father Mother Alive Social History Tobacco Use Types Packs/Day Years Used Date Smoking Tobacco: Every Day Cigarettes Smokeless Tobacco: Former Alcohol Use Standard Drinks/Week Comments No 0 (1 standard drink = 0.6 oz pur e alcohol) Sex and Gender Information Value Date Recorded Sex Assigned at Not on file Legal Sex Male 2:30 PM CDT Gender Identity Not on file Sexual Orientation Not on file Last Filed Vital Signs Vital Sign Reading Time Taken Comments Blood Pressure 135/70 08/22/2016 11:38 AM CDT Pulse 88 08/22/2016 11:38 AM CDT Temperature 36.4 C (97.5 F) 08/22/2016 11:38 AM CDT Respiratory Rate - - Oxygen Saturation 96% 08/22/2016 11: 38 AM CDT Inhaled Oxygen Concentration - - Weight 108.3 kg (238 lb 12.8 oz) 2016 11:38 AM CDT Height 185.4 cm (6' 1 ) 08/22/2016 11:3 8 AM CDT Body Mass Index 31.51 08/22/2016 11:38 AM CDT Plan of Treatment Health Maintenance Due Date Last Done Comments DIABETES ANNUAL FOOT EXAM 1973 DIABETES MICROALBUMIN ANNUAL SCREEN 1973 FIT/ DNA Q 3 YEARS (AUTO ORDER) 1973 FIT/FOBT Q 1 YEAR (AUTO ORDER) 1973 FLEX SIG/CT COLONOGRAPHY Q 5 YEARS (AUTO ORDER) 1973 DTAP/TDAP/TD VACCINES (1 - Tdap) 1974 PNEUMOCOCCAL VACCINE 50+ YEA RS (1 of 2 - PCV) 1974 FIT-DNA Q 3 years 01/25/2000 FIT/FOBT Q 1 year 01/25/2000 Flex Sig/CT Colonography Q 5 years 01/25/2000 ZOSTER VACCINE (1 of 2) 2005 RSV VACCINE (60+ or ) (1 - Risk 60-74 years 1-dose series) 2015 DIABETES HBA1C Q 6 MONTHS 02/21/2017 08/22/2016 LDL CHOLESTEROL ANNUAL 03/18/2017 6, 09/28/2015, 04/30/2015, Additional history exists DIABETES ANNUAL RETINAL EXAM 04/27/2023 04/27/2022 [place] Preventative Visit/Annual Wellness Visit 05/15/2024 INFLUENZA VACCINE (#1) 2024 COLORECTAL CANCER SCREENING (AUTO ORDER) 07/11/2032 07/11/2022, 04/16/2014, 11/23/2012 COLORECTAL SCREENING 07/11/2032 07/11/2022, 04/16/2014, 11/23/2012 Colorectal Cancer Screening (AUTO ORDER) 07/11/2032 Colorectal Cancer Screening 07/11/2032 Procedures Procedure Name Priority Date/Time Associated Diagnosis Comments HEMOGLOBIN A1C Routine 08/22/2016 11:55 AM CDT Type 2 diabetes mellitus without complication, without long-term current use of insulin ([facility]) LIPID PANEL Routine 03/18/2016 from Last 3 Months or Most Recently Relevant to Health Maintenance Results * (ABNORMAL) HEMOGLOBIN A1C (08/22/2016 11:55 AM CDT) Pathologist [facility] HEMOGLOBIN A1C 6.8(H) 4.0 - 6.0 % 08/22/2016 9:10 PM CDT [facility] EST. AVG GLUCOSE, A1C 148 mg/dL 08/22/2016 9:10 PM CDT [facility] Blood Venipuncture / Unknown 08/22/2016 11:55 AM CDT 08/22/2016 8:31 PM CDT Narrative [facility] - 08/22/2016 9:10 PM CDT Falsely low A1C measurements can occur when: 1. Anemia and/or hemolytic anemia is present. 2. Hemoglobin variants present. 3. Renal failure. 4. Transfusion of blood product in the last 120 days. We recommend ordering a fructosamine test([id number]) to more accurately assess glycemic status if any of the above conditions are present. us Sera Zhu RACEBOOK WRITER CHEMISTRY ORDERABLES Final Re sult [facility] CLIA# [id number] [address] [place] [id number] * LIPID PANEL (03/18/2016) Pathologist [facility] ABSTRACTED CHOLESTEROL 89 EXTERNAL LAB ABSTRACTED HDL 38 EXTERNAL LAB ABSTRACTED LDL CALCULATED 30 EXTERNAL LAB CHOLESTEROL <=200 mg/dL EXTERNAL LAB TRIGLYCERIDE <=150 mg/dL EXTERNAL LAB HDL 40 - 59 mg/dL EXTERNAL LAB LDL CALCULATED <=100 mg/dL EXTERNAL LAB ABSTRACTED TRIGLYCERIDE 103 EXTERNAL LAB Blood 03/18/2016 us Abstract Spg Provider CHEMISTRY ORDERABLES Edite d Result - Final EXTERNAL LAB from Last 3 Months or Most Recently Relevant to Health Maintenance Insurance [facility] MEDICAID [place] Care Teams Drying And Winding Supervisor Relationship Specialty Start Date End Date Peg Magdaleno DO [address] [place] [id number] PCP - General Family Practice 09/28/16
[2025-01-25 02:15] VITALS: BP 123/76; PULSE 76; RESP 18; O2SAT 96; BMI 24.6
[2025-01-25 03:29] VITALS: BP 119/61; PULSE 79; RESP 18; O2SAT 99
[2025-01-25] MEDS: lidocaine-epi 1% 20 mL INJ INJECTION (03:35)
[2025-01-25 03:42] LABS: Hematocrit 35.8 % (37-53); Hemoglobin 11.80 g/dL (11.27-16.99); Mean Corpuscular HGB Conc 33.0 g/dL (30-55); Mean Corpuscular Hemoglobin 30.8 pg (27-33); Mean Corpuscular Volume 93.5 fl (82-101); Nucleated Red Blood Cells % 0 %; Platelet Count 213 10^3/cmm (157-399); Red Blood Count 3.83 10^6/uL (3.85-5.65); White Blood Count 14.85 10^3/uL (3.29-11.43)
[2025-01-25 04:01] LABS: Lactic Sepsis W/Reflex 1.6 mmol/L (0.5-2.2)
[2025-01-25 04:02] LABS: Alanine Aminotransferase 33 U/L (0-41); Albumin Level 3.7 g/dL (3.5-5.2); Alkaline Phosphatase 125 U/L (40-130); Anion Gap 16.3 (5-19); Aspartate Amino Transferase 36 U/L (0-40); Blood Urea Nitrogen 19 mg/dL (8-23); Calcium 8.8 mg/dL (8.5-10.5); Carbon Dioxide 27 mmol/L (22-29); Chloride 97 mmol/L (98-107); Creatinine Clr Calc Pharmacy 88.4385; Globulin 3.3 g/dL (1.3-4.6); Glucose 180 mg/dL (65-115); Osmolality Calculated 291 mOsm/kg (285-295); Potassium 3.3 mmol/L (3.5-5.1); Sodium 137 mmol/L (136-145); Total Protein 7.0 g/dL (6.6-8.7)
[2025-01-25 04:29] VITALS: BP 119/62; PULSE 83; RESP 16; O2SAT 99
--- NOTE | 2025-01-25 04:54 | W.ED.SKABFB ---
HPI - Skin/Abscess/Foreign Bdy General: Chief complaint: Skin/Abscess/Foreign Body Stated complaint: thinks might be mrsa, boil on Lt side under belly Time Seen by Provider: 01/25/25 03:21 History of Present Illness: Patient is a 70-year-old male presenting with a skin abscess that has been present for 3 days. He describes the abscess as 'as big as a golf ball.' This is the first time he has experienced this type of lesion. The patient reports attempting self-treatment with silver and 'surgical bleach' and tried to squeeze it himself without success. The abscess is tender. He denies fever, nausea, or other systemic symptoms. The abscess has progressively enlarged over the past three days, prompting him to seek medical attention. Related Data Home Medications ?Medication ?Instructions ?Recorded ?Confirmed glipizide 5 mg tablet 5 mg PO BID 07/02/24 10/29/24 losartan 100 mg tablet 100 mg PO DAILY 07/02/24 10/29/24 metformin 500 mg tablet,extended 2,000 mg PO QAM 07/02/24 10/29/24 release 24 hr albuterol sulfate 90 mcg/actuation 1 puff inhalation Q6H PRN 09/17/24 10/29/24 aerosol inhaler Shortness Of Breath Or Wheezing buprenorphine 15 mcg/hour weekly 1 patch topical Q7D 09/17/24 10/29/24 transdermal patch Previous Rx's ?Medication ?Instructions ?Recorded Diabetic Shoes #1 ea 05/30/24 atorvastatin 40 mg tablet 40 mg PO DAILY 30 days #30 tabs 09/18/24 clindamycin HCl 300 mg capsule 300 mg PO Q6H 10 days #40 caps 01/25/25 (Cleocin HCl) Allergies Allergy/AdvReac Type Severity Reaction Status Date / Time No Known Allergies Allergy Verified 10/29/24 11:23 PENDING SALE TO [facility] ED PENDING SALE TO [facility]: Medical History (Updated 01/25/25 @ 04:18 by Jin Simon DO) Peripheral neuropathy Loose body in knee Type 2 diabetes mellitus Hardware failure Social History Smoking and tobacco/nicotine status: current some day tobacco/nicotine user cigarettes Quit status (tobacco/nicotine): considering quitting Alcohol intake: current Alcohol intake frequency: few times a week Alcohol type: beer, wine and hard liquor Substance/Drug Use: current Other substance/drug use details: Last night and he states last before that was 3 months Additional social history: Wants full CODE STATUS as discussed today 09/17/2024 Physical Exam Const: COMMON NORMALS: no acute distress GENERAL APPEARANCE: cooperative; not ill appearing and not frail appearing HENMT: COMMON NORMALS: normocephalic, atraumatic and Normal external nose present HEAD & SCALP: normocephalic and atraumatic FACE & SINUS: normal facial exam and face symmetric NOSE: Normal external nose present Eye: COMMON NORMALS: Equal, round and reactive pupils present and EOMs intact bilaterally PUPIL: Yes Equal, round and reactive pupils present Neck/C-Spine: GENERAL: Yes trachea midline Chest: CHEST: Yes Symmetrical chest wall rise Resp: COMMON NORMALS: normal respiratory effort, No retractions, No use of accessory muscles and clear to auscultation bilaterally AUSCULTATION: clear to auscultation bilaterally Cardio: COMMON NORMALS: regular rate and regular rhythm RATE: regular rate RHYTHM: regular rhythm GI: COMMON NORMALS: Normal to inspection, nondistended, normoactive bowel sounds present Extremity: COMMON NORMALS: no pedal edema Neuro: RUSSELL COMA SCALE: document GCS findings Russell coma scale eye opening: Spontaneous [place] coma scale verbal response: Orientated [place] coma scale motor response: Obey commands [place] coma scale total score: 15 SENSORY EXAM: Yes extremities (intact) Psych: COMMON NORMALS: speech normal SPEECH: Yes normal speech Skin: OTHER: Exam reveals a 3.5 cm semifluctuant indurated cellulitic mass in the left lower abdominal wall near the groin. It is tender to touch. There is no streaking. There is mild warmth. Procedures Abscess I/D Site: abdomen Side (if applicable): left Local Anesthetic: lidocaine 1% and with epi Amount of anesthesia used (mL): 6 Technique: incised with #11 blade Amount of fluid expressed (mL): 20 Irrigation: No Packing used?: plain Course Vital Signs: Vital signs: Vital Signs Pulse Rate 83 01/25/25 04:29 Respiratory Rate 16 01/25/25 04:29 Blood Pressure 119/62 01/25/25 04:29 Pulse Oximetry 99 01/25/25 04:29 Oxygen Delivery Me thod Room Air 01/25/25 03:29 MDM - Skin/Abscess/Foreign Bdy Medicial Decision Making 70-year-old male gentleman with a left lower abdominal wall/groin abscess. It was incised and drained and packed. He is placed on clindamycin, first dose here. Outpatient follow-up for wound check. Return for worsening. His CBC shows a white count of 15 without significant left shift. Other laboratory not terribly remarkable. Lab Data 01/25/25 02:58 01/25/25 02:58 Laboratory Results WBC 14.85 10^3/uL (3.29-11.43) H 01/25/25 02:58 RBC 3.83 10^6/uL (3.85-5.65) L 01/25/25 02:58 Hgb 11.80 g/dL (11.27-16.99) 01/25/25 02:58 Hct 35.8 % (37-53) L 01/25/25 02:58 MCV 93.5 fl (82-101) 01/25/25 02:58 MCH 30.8 pg (27-33) 01/25/25 02:58 MCHC 33.0 g/dL (30-55) 01/25/25 02:58 RDW 12.1 % (12.1-15.1) 01/25/25 02:58 Plt Count 213 10^3/cmm (157-399) 01/25/25 02:58 MPV 10.8 fL (7.4-10.4) H 01/25/25 02:58 Neut % (Auto) 71.7 % 01/25/25 02:58 Lymph % (Auto) 13.7 % 01/25/25 02:58 [place] % (Auto) 12.4 % 01/25/25 02:58 Eos % (Auto) 1.6 % 01/25/25 02:58 Baso % (Auto) 0.3 % 01/25/25 02:58 Neut # (Auto) 10.64 10^3/uL (1.8-7.7) H 01/25/25 02:58 Lymph # (Auto) 2.0 10^3/uL (0.8-4.8) 01/25/25 02:58 [place] # (Auto) 1.8 10^3/uL (0.2-0.9) H 01/25/25 02:58 Eos # (Auto) 0.2 10^3/uL (0.0-0.8) 01/25/25 02:58 Baso # (Auto) 0.0 10^3/uL (0.0-0.1) 01/25/25 02:58 Nucleated RBC % (auto) 0 % 01/25/25 02:58 Nucleated RBCs # 0.0 /100WBC 01/25/25 02:58 Sodium 137 mmol/L (136-145) 01/25/25 02:58 Potassium 3.3 mmol/L (3.5-5.1) L 01/25/25 02:58 Chloride 97 mmol/L (98-107) L 01/25/25 02:58 Carbon Dioxide 27 mmol/L (22-29) 01/25/25 02:58 Anion Gap 16.3 (5-19) 01/25/25 02:58 BUN 19 mg/dL (8-23) 01/25/25 02:58 Creatinine 0.9 mg/dL (0.7-1.2) 01/25/25 02:58 GFR Calculation 83.4 mL/min (90-130) L 01/25/25 02:58 Glucose 180 mg/dL (65-115) H 01/25/25 02:58 Calculated Osmolality 291 mOsm/kg (285-295) 01/25/25 02:58 Lactic Acid 1.6 mmol/L (0.5-2.2) 01/25/25 02:58 Calcium 8.8 mg/dL (8.5-10.5) 01/25/25 02:58 Total Bilirubin 2.0 mg/dL (0.15-1.2) H 01/25/25 02:58 AST 36 U/L (0-40) 01/25/25 02:58 ALT 33 U/L (0-41) 01/25/25 02:58 Alkaline Phosphatase 125 U/L (40-130) 01/25/25 02:58 Total Protein 7.0 g/dL (6.6-8.7) 01/25/25 02:58 Albumin 3.7 g/dL (3.5-5.2) 01/25/25 02:58 Globulin 3.3 g/dL (1.3-4.6) 01/25/25 02:58 No radiology studies performed this visit Discharge Plan Discharge Patient Disposition: Home Clinical Impression: Abscess of skin or subcutaneous tissue Qualifiers: Site of cutaneous abscess of trunk: abdominal wall Condition: Stable Prescriptions: New clindamycin HCl [Cleocin HCl] 300 mg capsule 300 mg PO Q6H 10 Days Qty: 40 0RF No Action (DME) Diabetic Shoes See Rx Instructions .Route .MEDSUPPLY Qty: 1 0RF Rx Instructions: As directed Home 3 x insoles losartan 100 mg tablet 100 mg PO DAILY metformin 500 mg tablet extended release 24 hr 2,000 mg PO QAM glipizide 5 mg tablet 5 mg PO BID albuterol sulfate 90 mcg/actuation HFA aerosol inhaler 1 puff INHALATION Q6H PRN (Reason: Shortness Of Breath Or Wheezing) buprenorphine 15 mcg/hour patch weekly 1 patch topical Q7D atorvastatin 40 mg tablet 40 mg PO DAILY 30 Days Qty: 30 0RF Discharge Orders: Discharge ED (Routine); Ordered 01/25/25 Ordered By: Jin Simon Referrals: Mane Carmona DO [Primary Care Provider] - 1-3 days Patient Instructions: Abscess (ED), Opioid Safety, Pain Management, Patient Portal & Davi Instructions Activity Restrictions/Additional Instructions: Antibiotics as directed. Leave packing in for up to 3 days. If it has not come out on its own by then, you may pull it. Keep covered. You may use antibiotic ointment. Warm moist heat can help dry out infection as well. Call your doctor Monday for an appointment this coming week for wound check. Return for fever despite antibiotics, spreading redness or swelling or pain despite antibiotics, any other concerns. Print Language: Romansh Coding Level of Care Code ED Park Activities Coordinator for Ramone Alicea
== END 2025-01-25 04:37 | disposition home or self-care (01) ==
PROVIDERS: Emergency Provider Emergency Medicine; PCP Family Medicine
DX: L02.211 Cutaneous abscess of abdominal wall (principal); Z79.84 Long term (current) use of oral hypoglycemic drugs; F17.210 Nicotine dependence, cigarettes, uncomplicated; E11.42 Type 2 diabetes mellitus with diabetic polyneuropathy
CPT/HCPCS: 10060; 36415; 80053; 83605; 85025; 87040; 99283; J9999

== ENCOUNTER → 2025-01-30 12:56 | Outpatient (BNVA) | payer MEDICARE, MEDICAID, SELFPAY | PROVIDERS: PCP Family Medicine; Visit Provider Orthopaedic Surgery | DX: M48.02 Spinal stenosis, cervical region (principal); G99.2 Myelopathy in diseases classified elsewhere | CPT/HCPCS: 99213 ==

== ENCOUNTER → 2025-02-19 15:10 | Outpatient (BNVA) | payer SELFPAY | PROVIDERS: PCP Family Medicine; Visit Provider Student in an Organized Health Care Education/Training Program | DX: M17.11 Unilateral primary osteoarthritis, right knee (principal); Z01.89 Encounter for other specified special examinations | CPT/HCPCS: 73560; 73565 ==

== ENCOUNTER → 2025-04-01 14:36 | Outpatient (BNVA) | payer MEDICARE, MEDICAID, SELFPAY | PROVIDERS: PCP Family Medicine; Visit Provider Student in an Organized Health Care Education/Training Program | DX: M17.11 Unilateral primary osteoarthritis, right knee (principal) | CPT/HCPCS: 99214 ==

== ENCOUNTER → 2025-04-22 15:48 | Outpatient (BNVA) | payer MEDICARE, SELFPAY | PROVIDERS: PCP Family Medicine; Visit Provider Orthopaedic Surgery | DX: Z01.818 Encounter for other preprocedural examination (principal); M48.02 Spinal stenosis, cervical region; G99.2 Myelopathy in diseases classified elsewhere; E11.42 Type 2 diabetes mellitus with diabetic polyneuropathy | CPT/HCPCS: 36415; 72050; 80053; 83036; 85025; 99214 ==